=== PATIENT | female | born 1965 | race Caucasian/White ===

== ENCOUNTER 2018-11-03 14:42 | Inpatient (IN) | payer BC ==
--- NOTE | 2018-11-03 15:18 | ED ---
General Adult HPI - General Chief complaint: Chest Pain Stated complaint: Chest pain-sent by Time Seen by Provider: 11/03/18 14:58 Source: patient Mode of arrival: ambulatory Limitations: no limitations - History of Present Illness Initial comments: Dictation was produced using [employer] dictation software. please excuse any grammatical, word or spelling errors. Chief Complaint: Patient is a 53-year-old female sent in by primary care physician for ACS evaluation. History of Present Illness: Patient is 53-year-old female she was sent in by primary care physician for possible ACS. Patient has had multiple episodes of chest pain in the last week. States that the pain is located to the anterior chest with a crushing sensation. States that there is associated diaphoresis. Patient also complains that during the symptoms she does have some radiation to the shoulders and EKG was performed that [facility]'s office showing mild EKG changes. Patient was given aspirin prior to being sent here to the emergency department. Patient denies any symptoms at this time. The ROS documented in this emergency department record has been reviewed and confirmed by me. Those systems with pertinent positive or negative responses have been documented in the HPI. All other systems are other negative and/or noncontributory. PHYSICAL EXAM: General Impression: Alert and oriented x3, not in acute distress HEENT: Normocephalic atraumatic, extra-ocular movements intact, pupils equal and reactive to light bilaterally, mucous membranes moist. Cardiovascular: Heart regular rate and rhythm, S1&S2 audible, no murmurs, rubs or gallops Chest: Lungs clear to auscultation bilaterally, no rhonchi, no wheeze, no rales Abdomen: Bowel sounds present, abdomen soft, non-tender, non-distended, no organomegaly Musculoskeletal: Pulses present and equal in all extremities, no peripheral edema Motor: Power 5/5 bilaterally, no focal deficits noted Neurological: CN II-XII grossly intact, no focal motor or sensory deficits noted Skin: Intact with no visualized rashes Psych: Normal affect and mood ED course: 53 y Old female sent in by primary care physician for cardiac workup. Patient is asymptomatic at this time. History is concerning for ACS- type symptoms. As upon arrival shows heart rate of 124, rest of vital signs within normal limits. Pre Hospital EKG was evaluated showing ST depressions in the lateral precordial leads. EKG performed here shows no findings to suggest myocardial infarction at this time.Laboratory evaluation obtained. Leukocytosis of 13.1, rest of CBC unremarkable. Coag panel is unremarkable. Metabolic panel is unremarkable. Patient does have a troponin of 0.473. Given clinical presentation there is concern that patient is having non-ST elevation HI. Heparin given aspirin. Patient be admitted for acute coronary syndrome. Cardiology on consultation. She reevaluated and continues to report no chest pain symptoms. EKG interpretation: Ventricular rate 103, sinus tachycardia, ID interval 16, care 76, QTC 461. No ID prolongation, no QTC prolongation, no ST. There are nonspecific T-wave changes in the lateral precordial leads.. Overall, this EKG is unremarkable - Related Data Home Medications Medication Instructions Recorded Confirmed DULoxetine HCL [Cymbalta] 60 mg PO HS 11/03/18 11/03/18 Esomeprazole Magnesium [NexIUM 20 mg PO HS 11/03/18 11/03/18 24Hr] Lidocaine 5% Patch [Lidoderm] 1 patch TOPICAL DAILY PRN 11/03/18 11/03/18 Linaclotide [Linzess] 290 mcg PO HS 11/03/18 11/03/18 Lisinopril [Zestril] 10 mg PO HS 11/03/18 11/03/18 Methocarbamol [Robaxin-750] 750 mg PO DAILY PRN 11/03/18 11/03/18 Zolpidem Tartrate [Ambien] 10 mg PO HS 11/03/18 11/03/18 oxyCODONE HCL 20 mg PO Q4H 11/03/18 11/03/18 rOPINIRole HCL [Requip] 4 mg PO HS 11/03/18 11/03/18 Allergies Allergy/AdvReac Type Severity Reaction Status Date / Time cashew nut Allergy Swelling Verified 11/03/18 15:46 Review of Systems ROS Statement: Those systems with pertinent positive or pertinent negative responses have been documented in the HPI. ROS Other: All systems not noted in ROS Statement are negative. Past Medical History Past Medical History: Fibromyalgia, Hypertension Additional Past Medical History / Comment(s): reynauds, chronic abdominal pain and nausea, History of Any Multi-Drug Resistant Organisms: MRSA Date of last positivie culture/infection: 2010 MDRO Source:: abdominal incision Past Surgical History: Cholecystectomy, Hysterectomy, Tonsillectomy Additional Past Surgical History / Comment(s): back for scoliosis, right knee, right dermoid ovarian cyst, left hand carpal tunnel, sinus sx, anal fistula, colonoscopy, endoscopy, partial colectomy, hiatal hernia repair, back l4 l5, rectal prolapse repair, right carpal tunnel repair Past Psychological History: Anxiety, Depression Smoking Status: Current every day smoker Past Alcohol Use History: None Reported Past Drug Use History: Marijuana General Exam Limitations: no limitations Course Vital Signs 11/03/18 11/03/18 11/03/18 14:49 15:03 15:10 Temperature 97.9 F Pulse Rate 124 H 111 H Respiratory 18 Rate Blood Pressure 142/85 O2 Sat by Pulse 98 97 98 Oximetry 11/03/18 11/03/18 11/03/18 15:20 15:34 15:40 Temperature Pulse Rate 117 H 115 H 104 H Respiratory Rate Blood Pressure O2 Sat by Pulse 95 97 97 Oximetry 11/03/18 11/03/18 11/03/18 15:46 15:50 16:00 Temperature 98.8 F Pulse Rate 87 89 Respiratory Rate Blood Pressure 148/96 148/96 O2 Sat by Pulse 97 95 Oximetry 11/03/18 16:10 Temperature Pulse Rate 89 Respiratory Rate Blood Pressure 123/81 O2 Sat by Pulse 95 Oximetry Medical Decision Making - Lab Data Result diagrams: 11/03/18 15:15 11/03/18 15:15 Lab Results 11/03/18 11/03/18 11/03/18 Range/Units 15:15 15:15 15:15 WBC 13.1 H (3.8-10.6) k/uL RBC 5.30 (3.80-5.40) m/uL Hgb 15.7 (11.4-16.0) gm/dL Hct 49.1 H (34.0-46.0) % MCV 92.8 (80.0-100.0) fL MCH 29.7 (25.0-35.0) pg MCHC 32.0 (31.0-37.0) g/dL RDW 13.4 (11.5-15.5) % Plt Count 392 (150-450) k/uL Neutrophils % 75 % Lymphocytes % 18 % Monocytes % 4 % Eosinophils % 1 % Basophils % 0 % Neutrophils # 9.9 H (1.3-7.7) k/uL Lymphocytes # 2.4 (1.0-4.8) k/uL Monocytes # 0.5 (0-1.0) k/uL Eosinophils # 0.1 (0-0.7) k/uL Basophils # 0.1 (0-0.2) k/uL PT 10.9 (9.0-12.0) sec INR 1.0 (<1.2) APTT 25.8 (22.0-30.0) sec Sodium 142 (137-145) mmol/L Potassium 4.1 (3.5-5.1) mmol/L Chloride 105 (98-107) mmol/L Carbon Dioxide 29 (22-30) mmol/L Anion Gap 8 mmol/L BUN 10 (7-17) mg/dL Creatinine 0.72 (0.52-1.04) mg/dL Est GFR (CKD-EPI)AfAm >90 (>60 ml/min/1.73 sqM) Est GFR (CKD-EPI)NonAf >90 (>60 ml/min/1.73 sqM) Glucose 110 H (74-99) mg/dL Calcium 10.0 (8.4-10.2) mg/dL Magnesium 2.0 (1.6-2.3) mg/dL Total Bilirubin 0.5 (0.2-1.3) mg/dL AST 26 (14-36) U/L ALT 27 (9-52) U/L Alkaline Phosphatase 130 H (38-126) U/L Troponin I (0.000-0.034) ng/mL Total Protein 8.1 (6.3-8.2) g/dL Albumin 4.4 (3.5-5.0) g/dL 11/03/18 Range/Units 15:15 WBC (3.8-10.6) k/uL RBC (3.80-5.40) m/uL Hgb (11.4-16.0) gm/dL Hct (34.0-46.0) % MCV (80.0-100.0) fL MCH (25.0-35.0) pg MCHC (31.0-37.0) g/dL RDW (11.5-15.5) % Plt Count (150-450) k/uL Neutrophils % % Lymphocytes % % Monocytes % % Eosinophils % % Basophils % % Neutrophils # (1.3-7.7) k/uL Lymphocytes # (1.0-4.8) k/uL Monocytes # (0-1.0) k/uL Eosinophils # (0-0.7) k/uL Basophils # (0-0.2) k/uL PT (9.0-12.0) sec INR (<1.2) APTT (22.0-30.0) sec Sodium (137-145) mmol/L Potassium (3.5-5.1) mmol/L Chloride (98-107) mmol/L Carbon Dioxide (22-30) mmol/L Anion Gap mmol/L BUN (7-17) mg/dL Creatinine (0.52-1.04) mg/dL Est GFR (CKD-EPI)AfAm (>60 ml/min/1.73 sqM) Est GFR (CKD-EPI)NonAf (>60 ml/min/1.73 sqM) Glucose (74-99) mg/dL Calcium (8.4-10.2) mg/dL Magnesium (1.6-2.3) mg/dL Total Bilirubin (0.2-1.3) mg/dL AST (14-36) U/L ALT (9-52) U/L Alkaline Phosphatase (38-126) U/L Troponin I 0.473 H* (0.000-0.034) ng/mL Total Protein (6.3-8.2) g/dL Albumin (3.5-5.0) g/dL Disposition Clinical Impression: NSTEMI (non-ST elevated myocardial infarction) Disposition: ADMITTED IP TO THIS HOSP Condition: Fair Referrals: Fransico Urena MD [Primary Care Provider] - 1-2 days Decision Time: 16:35
[2018-11-03 15:32] LABS: Basophils # (A) 0.1 k/uL (0-0.2); Basophils % (A) 0 %; Eosinophils # (A) 0.1 k/uL (0-0.7); Eosinophils % (A) 1 %; HCT 49.1 % (34.0-46.0); HGB 15.7 gm/dL (11.4-16.0); Lymphocytes # (A) 2.4 k/uL (1.0-4.8); Lymphocytes % (A) 18 %; MCH 29.7 pg (25.0-35.0); MCV 92.8 fL (80.0-100.0); Mean Platelet Volume 7.5; Monocytes # (A) 0.5 k/uL (0-1.0); Monocytes % (A) 4 %; Neutrophils # (A) 9.9 k/uL (1.3-7.7); Neutrophils % (A) 75 %; Platelet Count 392 k/uL (150-450); RDW 13.4 % (11.5-15.5); WBC 13.1 k/uL (3.8-10.6)
[2018-11-03 15:40] LABS: ALT 27 U/L (9-52); AST 26 U/L (14-36); Albumin 4.4 g/dL (3.5-5.0); Alkaline Phosphatase 130 U/L (38-126); Anion Gap 8 mmol/L; Blood Urea Nitrogen 10 mg/dL (7-17); Carbon Dioxide 29 mmol/L (22-30); Chloride 105 mmol/L (98-107); Glucose 110 mg/dL (74-99); Potassium 4.1 mmol/L (3.5-5.1); Sodium 142 mmol/L (137-145); Total Bilirubin 0.5 mg/dL (0.2-1.3); Total Protein 8.1 g/dL (6.3-8.2)
[2018-11-03 15:43] LABS: Partial Thromboplastin Time 25.8 sec (22.0-30.0); Prothrombin Time 10.9 sec (9.0-12.0)
--- NOTE | 2018-11-03 16:07 | XR ---
EXAMINATION TYPE: XR chest 2V DATE OF EXAM: 11/03/2018 COMPARISON: Chest CT report September 24, 2011 HISTORY: Chest pain. TECHNIQUE: Frontal and lateral views of the chest are obtained. FINDINGS: There is no focal air space opacity, pleural effusion, or pneumothorax seen. The cardiac silhouette size is within normal limits. Underlying scoliosis is present. Cholecystectomy clips are n oted. IMPRESSION: No acute cardiopulmonary process.
[2018-11-03] MEDS ORDERED: HEPARIN SODIUM,PORCINE 5,000 UNIT/ML 1 ML VIAL IV ONE (16:29)
[2018-11-03] MEDS ORDERED: HEPARIN SODIUM,PORCINE 5,000 UNIT/ML 1 ML VIAL IV PRN (16:29)
[2018-11-03] MEDS ORDERED: NITROGLYCERIN SL TABS 0.4 MG TAB SUBLINGUAL PRN (16:30)
[2018-11-03] MEDS ORDERED: ASPIRIN 81 MG PO STA (16:30)
[2018-11-03] MEDS: HEPARIN SOD,PORK IN 0.45% NACL 25,000 UNIT in 0.45% NACL 1 250ML.BAG IV SCH (17:07)
[2018-11-03] MEDS ORDERED: METHOCARBAMOL 750 MG TAB PO PRN (20:45)
[2018-11-03] MEDS ORDERED: LIDOCAINE 5% PATCH TOPICAL PRN (20:45)
[2018-11-03] MEDS ORDERED: ZOLPIDEM 10 MG TAB PO PRN (21:00)
[2018-11-03] MEDS ORDERED: ATORVASTATIN 40 MG TAB PO SCH (22:30)
[2018-11-03] MEDS: DULoxetine HCL 60 MG CAPSULE.DR PO SCH (22:51)
[2018-11-03] MEDS: Linaclotide [Linzess] PO SCH (22:51)
[2018-11-03] MEDS: LISINOPRIL 10 MG TAB PO SCH (22:52)
[2018-11-03] MEDS: METOPROLOL TARTRATE 12.5 MG TAB PO SCH (22:52)
[2018-11-03] MEDS: PANTOPRAZOLE 40 MG TABLET PO SCH (22:52)
[2018-11-03] MEDS: rOPINIRole HCL 4 MG TABLET PO SCH (22:52)
--- NOTE | 2018-11-04 00:58 | HP ---
HISTORY AND PHYSICAL DATE OF ADMISSION: November 03, 2018. DATE OF SERVICE: November 03, 2018. PRESENTING COMPLAINT: Chest pain. HISTORY OF PRESENTING COMPLAINT: This is a 53-year-old patient of Dr. Fransico Urena whose chronic stable medical conditions include fibromyalgia, hypertension, Raynaud's, anxiety, depression. The patient is a long-standing smoker. The patient also has got GERD and irritable bowel syndrome. On Friday that is 4 days ago, the patient had an episode of central squeezing sensation, lasted for a good 1.5 hours and then subsided on its own. This was associated with shortness of breath, perspiration, nausea. Last night, patient had similar episode and decided to come into the ER today. The patient is put on IV heparin. The patient's initial troponin was 0.4. The patient currently does not have any chest pain, admitted with a diagnosis of acute non-Q-wave myocardial infarction. REVIEW OF SYSTEMS: CONSTITUTIONAL: Tired. HEENT: None. RESPIRATORY as above. CARDIOVASCULAR as above. GASTROINTESTINAL: Heartburn. GENITOURINARY none. MUSCULOSKELETAL: Chronic fibromyalgia. DERMATOLOGICAL, HEMATOLOGIC, LYMPHATIC: None. PSYCHIATRY: Anxiety. NEUROLOGICAL: None. PAST MEDICAL HISTORY: Of fibromyalgia, hypertension, Raynaud, irritable bowel syndrome, anxiety, depression, GERD. PAST SURGICAL HISTORY: Cholecystectomy hysterectomy, tonsillectomy, back surgery for scoliosis, right dermoid ovarian cyst, left hand carpal tunnel, anal fistula, colonoscopy, partial colectomy, hiatal hernia repair, L4-L5 surgery, rectal prolapse repair, right carpal tunnel repair. PSYCH HISTORY: Anxiety and depression. SOCIAL HISTORY: Smoking a pack a day for close to 38 years, grows her own marijuana. Does 1 g a day, takes it for nausea and abdominal pain from scar tissue. FAMILY HISTORY: Coronary artery disease, diabetes, thyroid, colon cancer. HOME MEDICATIONS: 1. Oxycodone 20 mg q.4. 2. Robaxin 750 mg daily p.r.n. 3. Lidoderm 5% patch topical daily p.r.n. 4. Requip 4 mg at bedtime. 5. Zestril 10 mg q.h.s. 6. Linzess 290 mcg p.o. q.h.s. 7. Nexium 20 mg q.h.s. 8. Cymbalta 60 mg q.h.s. 9. Ambien 10 mg q.h.s. ALLERGIES: CASHEW NUTS. EXAM: VITAL SIGNS: On examination: Temperature 98.1, pulse 72, respiratory 18, blood pressure 102/76, pulse ox 98% on room air. GENERAL APPEARANCE: Well built. BMI 34. Sitting up, comfortable, awake. EYES: Pupils are equal. Conjunctivae normal. HEENT: External appearance of nose and ears normal. Oral cavity normal. NECK: JVD Not raised. Mass not palpable. RESPIRATORY: Effort normal. LUNGS: Fair air entry. CARDIOVASCULAR: 1st and 2nd sounds normal. No edema. ABDOMEN: Soft, nontender. Liver and spleen not palpable. LYMPHATICS: No lymph nodes palpable in the neck and axilla. PSYCHIATRY: Alert and oriented x3. Mood and affect normal. NEUROLOGICAL: Pupils equal. Cranial nerves grossly intact. Power and sensation grossly intact. INVESTIGATIONS: White count 13.1, hemoglobin 15.7, potassium 4.1. BUN and creatinine normal. Troponin 0.4, 0.3. EKG tracing personally reviewed by me shows ST-segment depression in inferior leads and in the lateral leads. Chest x-ray film personally reviewed by me shows not any infiltrates. ASSESSMENT: 1. Acute non-Q-wave myocardial infarction, probably occurring in the last 2 or 3 days. Currently chest pain free. 2. Chronic fibromyalgia. 3. Essential hypertension. 4. Anxiety and depression, not otherwise specified. 5. Irritable bowel syndrome. 6. Gastroesophageal reflux disease. 7. Chronic nicotine dependence. Patient is a cigarette smoker. 8. Cannabis use. The patient grows her own, uses for nausea and scar tissue. 9. IV heparin monitoring. PLAN: Patient is on IV heparin, aspirin, Lipitor will be added. A small dose of beta danielle will be added. The patient is already on Zestril. Cardiology is consulted with a view to cardiac catheterization with input. The patient is offered a nicotine patch. She declines the same. Copy to Dr. Fransico Urena. MMPOOJAL / DONAN: [phone] /
--- NOTE | 2018-11-04 07:05 | P.CRDCN ---
History of Present Illness Consult date: 11/04/18 Requesting physician: Dre Kennedy Consult reason: chest pain Chief complaint: Chest pain History of present illness: This is a pleasant 53-year-old female with documented history of hy pertension, nicotine dependence, family history of coronary artery disease, her father had a myocardial infarction in his 40s. According to the patient, on Friday night she had a bout of midsternal chest discomfort which she described as a pressure and crushing sensation that radiated down into her arm. She became extremely diaphoretic and nauseated. Symptoms lasted around an hour. He states overall on the weekend she felt better, then again on Friday night the patient had similar symptoms. She went to a routine office appointment yesterday and mentioned these symptoms to her doctor. An EKG was performed in the office and patient was subsequently advised to come to the emergency room f or further evaluation and treatment. Original EKG which was performed in the office shows a normal sinus rhythm with T wave inversion noted in the lateral leads. Initial EKG performed on arrival here showed a normal sinus rhythm with no acute changes. EKG performed this morning shows normal sinus rhythm with ST- T wave changes noted in the inferior lateral leads. Chest x-ray does not reveal any acute process. Blood pressure on arrival here 142/80, heart rate in the 120s. Blood pressure this morning 118/70 with a heart rate in the 60s, 96% on room air. White blood cell count 13.1, hemoglobin 15.7, platelet count 392. Sodium 142, potassium 4.1, BUN 10 and creatinine 0.7, magnesium 2.0. Troponins 0.47, 0.33, 0.28. At the time of my examination this morning, patient is currently chest pain-free. Past Medical History Past Medical History: Fibromyalgia, Hypertension Additional Past Medical History / Comment(s): reynauds, chronic abdominal pain and nausea, History of Any Multi-Drug Resistant Organisms: MRSA Date of last positivie culture/infection: 2010 MDRO Source:: abdominal incision Past Surgical History: Cholecystectomy, Hysterectomy, Tonsillectomy Additional Past Surgical History / Comment(s): back for scoliosis, scope of right knee, right dermoid ovarian cyst, left hand carpal tunnel, sinus sx, anal fistula, colonoscopy, endoscopy, partial colectomy, hiatal hernia repair, back l 4 l5, rectal prolapse repair, right carpal tunnel repair Past Psychological History: Anxiety, Depression Smoking Status: Current every day smoker Past Alcohol Use History: None Reported Past Drug Use History: Marijuana - Past Family History Father Family Medical History: Coronary Artery Disease (CAD), Diabetes Mellitus, Thyroid Disorder Additional Family Medical History / Comment(s): Cancer of [place], thyroid, triple bipass at 49 yr old Medications and Allergies Home Medications Medication Instructions Recorded Confirmed Type DULoxetine HCL [Cymbalta] 60 mg PO HS 11/03/18 11/03/18 History Esomeprazole Magnesium [NexIUM 20 mg PO HS 11/03/18 11/03/18 History 24Hr] Lidocaine 5% Patch [Lidoderm] 1 patch TOPICAL DAILY PRN 11/03/18 11/03/18 History Linaclotide [Linzess] 290 mcg PO HS 11/03/18 11/03/18 History Lisinopril [Zestril] 10 mg PO HS 11/03/18 11/03/18 History Methocarbamol [Robaxin-750] 750 mg PO DAILY PRN 11/03/18 11/03/18 History Zolpidem Tartrate [Ambien] 10 mg PO HS 11/03/18 11/03/18 History oxyCODONE HCL 20 mg PO Q4H 11/03/18 11/03/18 History rOPINIRole HCL [Requip] 4 mg PO HS 11/03/18 11/03/18 History Allergies Allergy/AdvReac Type Severity Reaction Status Date / Time cashew nut Allergy Swelling Verified 11/03/18 15:46 Physical Exam Vitals: Vital Signs Temp Pulse Pulse Resp BP BP Pulse Ox 11/04/18 04:40 98.0 F 66 18 117/71 96 11/04/18 00:35 98.1 F 68 20 116/71 96 11/03/18 20:00 97.9 F 73 20 109/72 94 L 11/03/18 17:39 98.1 F 72 18 122/76 98 11/03/18 17:18 98.8 F 11/03/18 17:10 73 112/80 94 L 11/03/18 17:00 77 131/73 95 11/03/18 16:50 82 131/73 97 11/03/18 16:40 80 128/91 96 11/03/18 16:30 82 122/74 96 11/03/18 16:20 82 122/74 96 11/03/18 16:10 89 123/81 95 11/03/18 16:00 89 148/96 95 11/03/18 15:50 87 148/96 97 11/03/18 15:46 98.8 F 11/03/18 15:40 104 H 97 11/03/18 15:34 115 H 97 11/03/18 15:20 117 H 95 11/03/18 15:10 111 H 98 11/03/18 15:03 97 11/03/18 14:49 97.9 F 124 H 18 142/85 98 Intake and Output 11/03/18 11/03/18 11/04/18 14:59 22:59 06:59 Intake Total 1 627.167 Balance 1 627.167 Intake: Amount of Fluid Infused ( 1 ml) Intake, IV Titration 77.167 Amount Heparin Sod,Pork in 0.45% 77.167 NaCl 25,000 unit In 0.45 % NaCl 1 250ml.bag @ 9.59 UNITS/KG/HR 10 mls/hr IV .Q24H [facility] Rx#:[id number] Oral 550 Other: Weight 104.326 kg 102.1 kg PHYSICAL EXAMINATION: GENERAL: 53-year-old female in no acute distress at the time of my examination HEENT: Head is atraumatic, normocephalic. Pupils equal, round. Sclera anicteric. Conjunctiva are clear. Mucous membranes of the mouth are moist. Neck is supple. There is no elevated jugular venous pressure. No carotid bruit is heard. HEART EXAMINATION: Heart S1, S2 normal. No murmur or gallop heard. CHEST EXAMINATION: Lungs reveal fine wheezing throughout ABDOMEN: Soft, nontender. Bowel sounds are heard. No organomegaly noted. EXTREMITIES: 2+ peripheral pulses with no evidence of peripheral edema and no calf tenderness noted. NEUROLOGIC patient is awake, alert and oriented 3 . . Results 11/03/18 15:15 11/03/18 15:15 Cardiac Enzymes 11/03/18 11/03/18 11/03/18 Range/Units 15:15 15:15 20:52 AST 26 (14-36) U/L Troponin I 0.473 H* 0.336 H* (0.000-0.034) ng/mL 11/04/18 Range/Units 03:15 AST (14-36) U/L Troponin I 0.289 H* (0.000-0.034) ng/mL Coagulation 11/03/18 11/03/18 Range/Units 15:15 23:20 PT 10.9 (9.0-12.0) sec APTT 25.8 34.3 H (22.0-30.0) sec CBC 11/03/18 Range/Units 15:15 WBC 13.1 H (3.8-10.6) k/uL RBC 5.30 (3.80-5.40) m/uL Hgb 15.7 (11.4-16.0) gm/dL Hct 49.1 H (34.0-46.0) % Plt Count 392 (150-450) k/uL Comprehensive Metabolic Panel 11/03/18 Range/Units 15:15 Sodium 142 (137-145) mmol/L Potassium 4.1 (3.5-5.1) mmol/L Chloride 105 (98-107) mmol/L Carbon Dioxide 29 (22-30) mmol/L BUN 10 (7-17) mg/dL Creatinine 0.72 (0.52-1.04) mg/dL Glucose 110 H (74-99) mg/dL Calcium 10.0 (8.4-10.2) mg/dL AST 26 (14-36) U/L ALT 27 (9-52) U/L Alkaline Phosphatase 130 H (38-126) U/L Total Protein 8.1 (6.3-8.2) g/dL Albumin 4.4 (3.5-5.0) g/dL Current Medications Generic Name Dose Route Start Last Admin Trade Name Freq PRN Reason Stop Dose Admin Aspirin 325 mg 11/04/18 09:00 Aspirin PO DAILY [facility] Atorvastatin Calcium 40 mg 11/03/18 22:30 11/03/18 22:53 Lipitor PO 40 mg DAILY [facility] Administration Duloxetine HCl 60 mg 11/03/18 21:00 11/03/18 22:51 Cymbalta PO Not Given HS [facility] Heparin Sodium (Porcine) 0 unit 11/03/18 16:29 11/04/18 00:47 Heparin IV 4,000 unit PER PROTOCOL PRN Administration Low PTT Protocol Heparin Sodium/Sodium Chloride 250 mls @ 10 mls/hr 11/03/18 16:30 11/04/18 00:50 25,000 unit/ Sodium Chloride IV 12.46 units/kg/hr .Q24H [facility] 13 mls/hr Titration Protocol 9.59 UNITS/KG/HR Lidocaine 1 patch 11/03/18 20:45 Lidoderm TOPICAL DAILY PRN Pain Lisinopril 10 mg 11/03/18 21:00 11/03/18 22:52 Zestril PO Not Given HS [facility] Methocarbamol 750 mg 11/03/18 20:45 Robaxin PO DAILY PRN Pain Metoprolol Tartrate 12.5 mg 11/03/18 22:29 11/03/18 22:52 Lopressor PO 12.5 mg BID [facility] Administration Nitroglycerin 0.4 mg 11/03/18 16:30 Nitrostat SUBLINGUAL Q5M PRN Chest Pain Linaclotide [Linzess 290 mcg 11/03/18 21:00 11/03/18 22:51 ] PO Not Given HS [facility] Oxycodone HCl 20 mg 11/03/18 20:45 Oxyir PO Q4H PRN BREAKTHROUGH PAIN Pantoprazole Sodium 40 mg 11/03/18 21:00 11/03/18 22:52 Protonix PO 40 mg HS [facility] Administration Ropinirole HCl 4 mg 11/03/18 21:00 11/03/18 22:52 Requip PO Not Given HS [facility] Zolpidem Tartrate 10 mg 11/03/18 21:00 Ambien PO HS PRN Insomnia Intake and Output 11/03/18 11/03/18 11/04/18 14:59 22:59 06:59 Intake Total 1 627.167 Balance 1 627.167 Intake: Amount of Fluid Infused ( 1 ml) Intake, IV Titration 77.167 Amount Heparin Sod,Pork in 0.45% 77.167 NaCl 25,000 unit In 0.45 % NaCl 1 250ml.bag @ 9.59 UNITS/KG/HR 10 mls/hr IV .Q24H [facility] Rx#:[id number] Oral 550 Other: Weight 104.326 kg 102.1 kg Patient Weight 11/04/18 06:59 Weight 102.1 kg 11/03/18 15:15 11/03/18 15:15 EKG Interpretations (text) EKG shows normal sinus rhythm with ST-T wave changes noted in the inferior lateral leads. Assessment and Plan Plan: Assessment and plan #1 midsternal chest pressure and heaviness with associated diaphoresis and nausea, radiation down the left arm, EKG shows normal sinus rhythm with inferior lateral ST-T wave changes. Abnormality in troponin. Clinical picture suggestive of non-Q-wave [place]. #2 hypertension #3 nicotine dependence #4 strong family history of premature coronary artery disease in her father who had a myocardial infarction in his 40s #5 Renauds syndrome Plan We will obtain a stat echocardiogram with Doppler study. Continue IV heparin drip and aspirin, continue lisinopril, metoprolol, we will start the patient on 80 mg of Lipitor now and daily. Patient has been advised that she will need to undergo cardiac catheterization, the risks and benefits were explained to the patient in detail and she is willing to proceed. Further recommendations will be based on these findings and the patient's clinical course. DNP note has been reviewed, I agree with a documented findings and plan of care. Patient was seen and examined.
[2018-11-04 07:20] LABS: Cholesterol 226 mg/dL (<200); HDL Cholesterol 44 mg/dL (40-60); LDL Cholesterol,Calculated 149 mg/dL (0-99); Triglycerides 165 mg/dL (<150)
[2018-11-04] MEDS ORDERED: NITROGLYCERIN SL TABS 0.4 MG TAB SUBLINGUAL PRN ×2 (08:27→09:54)
[2018-11-04] MEDS ORDERED: ALPRAZolam 0.25 MG TAB PO PRN (08:27)
[2018-11-04] MEDS ORDERED: SODIUM CHLORIDE 0.9% 1,000 ML in EMPTY BAG 1 BAG IV ONE (08:27)
[2018-11-04] MEDS ORDERED: ALPRAZolam 0.5 MG TAB PO PRN (08:27)
[2018-11-04] MEDS ORDERED: ASPIRIN 325 MG TAB PO STA (08:30)
[2018-11-04] MEDS ORDERED: ATORVASTATIN 80 MG TAB PO STA (08:30)
[2018-11-04] MEDS: METOPROLOL TARTRATE 12.5 MG TAB PO SCH ×2 (08:40→20:15)
[2018-11-04] MEDS ORDERED: VERAPAMIL 2.5 MG/ML 2 ML AMP ONE (08:55)
[2018-11-04] MEDS ORDERED: fentaNYL (PF) 50 MCG/ML 2 ML AMP ONE (08:55)
[2018-11-04] MEDS ORDERED: LIDOCAINE 1% INJ 10MG/ML (20 ML MDV) ONE (08:55)
[2018-11-04] MEDS ORDERED: HEPARIN SODIUM 1,000 UN/ML (10ML VL) ONE (08:55)
[2018-11-04] MEDS ORDERED: ASPIRIN 325 MG TAB PO SCH (09:00)
[2018-11-04] MEDS ORDERED: ATORVASTATIN 80 MG TAB PO SCH (09:00)
[2018-11-04] MEDS ORDERED: IV FLUID CONTINUATION 1,000 ML IV ONE (09:05)
[2018-11-04] MEDS ORDERED: fentaNYL (PF) 50 MCG/ML 2 ML AMP IV ONE (09:10)
[2018-11-04] MEDS: MIDAZOLAM 2 MG/2 ML VIAL IV ONE ×2 (09:10→09:38)
[2018-11-04] MEDS ORDERED: LIDOCAINE 1% INJ 10MG/ML (20 ML MDV) SQ ONE (09:13)
[2018-11-04] MEDS ORDERED: VERAPAMIL SYRINGE (5 MG/10 ML) INTRAARTER ONE (09:16)
[2018-11-04] MEDS ORDERED: HEPARIN SODIUM 1,000 UN/ML (10ML VL) IV ONE (09:17)
[2018-11-04] MEDS ORDERED: BIVALIRUDIN BOLUS 250 MG/50 ML IV ONE (09:37)
[2018-11-04] MEDS ORDERED: BIVALIRUDIN 250 MG in SODIUM CHLORIDE 0.9% 50 ML IV ONE (09:38)
--- NOTE | 2018-11-04 09:45 | P.CARDCATH ---
Date of Procedure: 11/04/18 Preoperative Diagnosis: Non-STEMI Postoperative Diagnosis: Critical lesion involving the proximal circumflex Procedure(s) Performed: Left heart catheterization without left ventriculography Description of Procedure: HISTORY: This is a 53-year-old female with history of hypertension, family history of ischemic heart disease who was admitted to the hospital with symptoms of prolonged chest pain and positive troponin suggestive of non-STEMI. Patient is advised to have a cardiac catheterization for definitive diagnosis. CONSENT:I have discussed the risks, benefits and alternative therapies for the above-mentioned procedure and for both sedation/analgesia as well as necessary blood product administration, if indicated, as they pertain to this patient. The patient has indicated understanding and acceptance of the risks and procedures discussed. [] PROCEDURE: Patient was brought to the lab in a fasting state. Patient was given some IV sedation. The right wrist is infiltrated with lidocaine and right radial artery was entered using Seldinger technique. A 6-Japanese catheter was left in place and selective coronary arteriography was performed. Patient tolerated the procedure well. Patient went on to have stent placement of the circumflex by Dr. Self No immediate complications were noted and patient was transferred to [facility] in a stable condition Conscious Sedation: Versed 1mg Fentanyl 50 g Duration 20minutes HEMODYNAMICS: The aortic pressure is 140/80. Left ankle end-diastolic pressure is about 12. There was no gradient across the aortic valve SELECTIVE CORONARY ARTERIOGRAPHY: LEFT MAIN: Short and free of occlusive disease THE LEFT ANTERIOR DESCENDING CORONARY ARTERY:. Good caliber vessel with mild disease in the proximal portion. The mid and distal vessels are free of occlusive disease THE LEFT CIRCUMFLEX AND IS CORONARY ARTERY:. This is a good caliber vessel with about 70-80% eccentric lesion involving the proximal portion THE RIGHT CORONARY ARTERY:. Moderate caliber vessel free of any occlusive disease LEFT VENTRICULOGRAPHY:. Not performed FINAL IMPRESSION:. Critical lesion involving the circumflex. Stent placement being done by Dr. Self PLAN: Stent placement of the circumflex PROGNOSIS: Fair
[2018-11-04] MEDS ORDERED: CLOPIDOGREL 75 MG TAB ONE (09:49)
[2018-11-04] MEDS ORDERED: IOPAMIDOL-370 150ML BTL INJ ONE (09:51)
[2018-11-04] MEDS ORDERED: CLOPIDOGREL 75 MG TAB PO ONE (09:52)
[2018-11-04] MEDS ORDERED: MAG HYDROX/AL HYDROX/SIMETH 30 ML CUP PO PRN (09:54)
[2018-11-04] MEDS ORDERED: ATROPINE SULFATE 0.1 MG/ML 10ML SYRINGE IV PRN (09:54)
[2018-11-04] MEDS ORDERED: RX INFO: IV CONTRAST WAS GIVEN 1 EACH MISC MISCELLANE PRN (09:54)
[2018-11-04] MEDS ORDERED: ZOLPIDEM 5 MG TAB PO PRN (09:54)
[2018-11-04] MEDS ORDERED: SODIUM CHLORIDE 0.9% 1,000 ML IV SCH (10:00)
--- NOTE | 2018-11-04 11:04 | PTCA ---
PERCUTANEOUSTRANS CORORONARY ANGIOGRAPHY DATE OF SERVICE: November 04, 2018 PERFORMING PHYSICIAN: John Granger MD, community arts worker. PROCEDURE PERFORMED: Successful stenting of the proximal left circumflex using 4.0 x 18 mm Xience PERLITA with an excellent angiographic result and reduction of stenosis from 80% to 0%. INDICATION: This is a pleasant 53-year-old female patient who was admitted to the hospital with chest discomfort and was found to have mildly abnormal cardiac enzymes. She underwent heart catheterization by Dr. Rodriguez and was found to have severe disease involving the proximal left circumflex with quite unstable lesion. Because of that, stenting of the left circumflex was advised. APPROACH: Right radial artery. COMPLICATION: None. LEVEL OF SEDATION: Moderate with sedation length of 14 minutes. PROCEDURE DESCRIPTION: Please refer to the diagnostic heart catheterization was performed by Dr. Rodriguez. Anticoagulation was initiated using Angiomax. Subsequently I took JL3.5 guide and the left main was engaged. A run-through wire was used to wire the left circumflex. Subsequently I did direct stenting of the lesion using using 4.0 x 18 mm Xience drug- eluting stent where the stent was positioned under fluoroscopy guidance and deployed under 12 atmospheres for 20 seconds with the following angiogram showing excellent angiographic results and the procedure was completed without any complication. POSTPROCEDURE MANAGEMENT: 1. Dual antiplatelet therapy. 2. Risk factor modifications. 3. Follow up with the patient. MMPOOJAL / DONAN: [id number] /
[2018-11-04 15:10] VITALS: BMI 33.2
--- NOTE | 2018-11-04 17:51 | ECHOF ---
Referral Reason:assess lvf MEASUREMENTS -------- HEIGHT: 175.3 cm WEIGHT: 102.1 kg BP: RVIDd: 1.9 cm (< 3.3) IVSd: 1.3 cm (0.6 - 1.1) LVIDd: 4.5 cm (3.9 - 5.3) LVPWd: 1.4 cm (0.6 - 1.1) IVSs: 2.1 cm LVIDs: 2.4 cm LVPWs: 1.9 cm LAESV Index (A-L): 15.93 ml/m Ao Diam: 3.2 cm (2.0 - 3.7) AV Cusp: 2.2 cm (1.5 - 2.6) LA Diam: 3.0 cm (2.7 - 3.8) MV EXCURSION: 15.965 mm (> 18.000) MV EF SLOPE: 89 mm/s (70 - 150) EPSS: 0.8 cm MV E Siva: 0.84 m/s MV DecT: 283 ms MV A Siva: 0.87 m/s MV E/A Ratio: 0.97 RAP: 5.00 mmHg RVSP: 7.51 mmHg FINDINGS -------- Sinus rhythm. This was a technically good study. The left ventricular size is normal. There is mild concentric left ventricular hypertrophy. Overa ll left ventricular systolic function is normal with, an EF between 55 - 60 %. The right ventricle is normal in size and function. Normal LA size by volume 22+/-6 ml/m2. The right atrium is normal in size. The aortic valve is trileaflet and appears structurally normal. There is trace mitral regurgitation. Trace tricuspid regurgitation present. The right ventricular systolic pressure, as measured by Dopp ler, is 7.51mmHg. There is no pulmonic regurgitation present. The aortic root size is normal. Normal inferior vena cava with normal inspiratory collapse consistent with estimated right atrial pre ssure of 5 mmHg. There is no pericardial effusion. CONCLUSIONS -------- 1. Sinus rhythm. 2. This was a technically good study. 3. The left ventricular size is normal. 4. There is mild concentric left ventricular hypertrophy. 5. Overall left ventricular systolic function is normal with, an EF between 55 - 60 %. 6. The right ventricle is normal in size and function. 7. Normal LA size by volume 22+/-6 ml/m2. 8. The right atrium is normal in size. 9. The aortic valve is trileaflet and appears structurally normal. 10. There is trace mitral regurgitation. 11. Trace tricuspid regurgitation present. 12. The right ventricular systolic pressure, as measured by Doppler, is 7.51mmHg. 13. There is no pulmonic regurgitation present. 14. The aortic root size is normal. 15. Normal inferior vena cava with normal inspiratory collapse consistent with estimated right atrial pressure of 5 mmHg. 16. There is no pericardial effusion. TRANSITION MGR RN: Chani Bell RDCS
[2018-11-04] MEDS: HEPARIN SOD,PORK IN 0.45% NACL 25,000 UNIT in 0.45% NACL 1 250ML.BAG IV SCH (18:21)
[2018-11-04] MEDS: LISINOPRIL 10 MG TAB PO SCH (20:15)
[2018-11-04] MEDS: DULoxetine HCL 60 MG CAPSULE.DR PO SCH (20:15)
[2018-11-04] MEDS: PANTOPRAZOLE 40 MG TABLET PO SCH (20:15)
[2018-11-04 22:00] VITALS: RESP 20
--- NOTE | 2018-11-04 23:38 | PN ---
PROGRESS NOTE DATE OF SERVICE: 11/04/2018 PRESENTING COMPLAINT: Chest pain. INTERVAL HISTORY: Patient presented with acute non-Q-wave myocardial infarction, underwent cardiac catheterization today and had a stent placed to the circumflex. Doing better, up and about in the hallway. No chest pain or shortness of breath. REVIEW OF SYSTEMS: Done for constitutional, cardiovascular, GI, pulmonary; relevant findings as above. CURRENT MEDICATIONS: Reviewed. They include: 1. Aspirin. 2. Lipitor. 3. Plavix. 4. Cymbalta. 5. IV heparin. 6. Lopressor. PHYSICAL EXAMINATION: Temperature 97.3, pulse 85, respiration 18, blood pressure 154/72, pulse ox 100% on room air. GENERAL APPEARANCE: Sitting up, awake. EYES: Pupils equal. Conjunctivae normal. NECK: JVD not raised. Mass not palpable. RESPIRATORY: Effort normal. LUNGS: Fair air entry. CARDIOVASCULAR: First and second sounds normal. No edema. ABDOMEN: Soft, non-tender. Liver and spleen not palpable. PSYCHIATRY: Alert and oriented x3. Mood and affect normal. INVESTIGATIONS: Troponin 0.4, 0.3, 0.2. LDL is 149. ASSESSMENT: 1. Acute non-Q-wave myocardial infarction, POA. 2. Angioplasty and stenting to the circumflex. 3. Chronic fibromyalgia. 4. Essential hypertension. 5. Anxiety and depression not otherwise specified. 6. Irritable bowel syndrome. 7. Gastroesophageal reflux disease. 8. Chronic nicotine dependence. Patient is a cigarette smoker. 9. Cannabis use, which she uses for nausea and abdominal pain. PLAN: Patient is now up and about in the hallway, doing better. Smoking cessation was reinforced. SMOKING CESSATION COUNSELING: This was done at length with the patient and at the bedside. Patient does not want a nicotine patch. More than 3 minutes was spent on this aspect of the case. MMODL / IJN: [id number] /
[2018-11-05] MEDS: Linaclotide [Linzess] PO SCH (00:15)
[2018-11-05] MEDS: rOPINIRole HCL 4 MG TABLET PO SCH (00:15)
[2018-11-05 07:46] VITALS: BP 132/77; PULSE 63; TEMP 97.4
[2018-11-05] MEDS ORDERED: ASPIRIN 325 MG TAB PO SCH (09:00)
[2018-11-05] MEDS ORDERED: CLOPIDOGREL 75 MG TAB PO SCH (09:00)
[2018-11-05] MEDS ORDERED: ATORVASTATIN 80 MG TAB PO SCH (09:00)
[2018-11-05] MEDS: METOPROLOL TARTRATE 12.5 MG TAB PO SCH (10:57)
--- NOTE | 2018-11-05 12:59 | P.PN ---
Subjective Progress Note Date: 11/05/18 This is a pleasant 53-year-old female with documented history of hypertension, nicotine dependence, family history of coronary artery disease, her father had a myocardial infarction in his 40s. According to the patient, on Friday night she had a bout of midsternal chest discomfort which she described as a pressure and crushing sensation that radiated down into her arm. She became extremely diaphoretic and nauseated. Symptoms lasted around an hour. He states overall on the weekend she felt better, then again on Friday night the patient had similar symptoms. She went to a routine office appointment yesterday and mentioned these symptoms to her doctor. An EKG was performed in the office and patient was subsequently advised to come to the emergency room for further evaluation and treatment. Original EKG which was performed in the office shows a normal sinus rhythm with T wave inversion noted in the lateral leads. Initial EKG performed on arrival here showed a normal sinus rhythm with no acute changes. EKG performed this morning shows normal sinus rhythm with ST- T wave changes noted in the inferior lateral leads. Chest x-ray does not reveal any acute process. Blood pressure on arrival here 142/80, heart rate in the 120s. Blood pressure this morning 118/70 with a heart rate in the 60s, 96% on room air. White blood cell count 13.1, hemoglobin 15.7, platelet count 392. Sodium 142, potassium 4.1, BUN 10 and creatinine 0.7, magnesium 2.0. Troponins 0.47, 0.33, 0.28. At the time of my examination this morning, patient is currently chest pain-free. 11/05/2018 Patient was taken to the cardiac catheterization lab yesterday where she underwent angioplasty and stenting of the proximal circumflex. EKG from this morning showed normal sinus rhythm with no changes from post-PCI. Hemodynamically she is stable today denies any chest pain or difficulty in breathing. Echocardiogram with Doppler study revealed a normal left ventricular systolic function. Objective - Vital Signs Vital signs: Vital Signs Temp 97.4 F L 11/05/18 07:43 Pulse 63 11/05/18 07:43 Resp 20 11/05/18 07:43 BP 132/77 11/05/18 07:43 Pulse Ox 97 11/05/18 07:43 Intake & Output 11/04/18 11/05/18 11/05/18 18:59 06:59 18:59 Intake Total 319.5 540 240 Output Total 1999 Balance -1680.5 540 240 Weight 102.1 kg 102.8 kg Intake: IV 97.5 Oral 222 540 240 Output: Urine 1999 Other: # Voids 2 1 - Exam PHYSICAL EXAMINATION: GENERAL: 53-year-old female in no acute distress at the time of my examination HEENT: Head is atraumatic, normocephalic. Pupils equal, round. Sclera anicteric. Conjunctiva are clear. Mucous membranes of the mouth are moist. Neck is supple. There is no elevated jugular venous pressure. No carotid bruit is heard. HEART EXAMINATION: Heart S1, S2 normal. No murmur or gallop heard. CHEST EXAMINATION: Lungs reveal fine wheezing throughout ABDOMEN: Soft, nontender. Bowel sounds are heard. No organomegaly noted. EXTREMITIES: 2+ peripheral pulses with no evidence of peripheral edema and no calf tenderness noted. Right radial site clean and dry, good distal pulse. NEUROLOGIC patient is awake, alert and oriented 3 . . - Labs CBC & Chem 7: 11/03/18 15:15 11/05/18 05:57 Assessment and Plan Plan: Assessment and plan #1 midsternal chest pressure and heaviness with associated diaphoresis and nausea, radiation down the left arm, EKG shows normal sinus rhythm with inferior lateral ST-T wave changes. Abnormality in troponin. Clinical picture suggestive of non-Q-wave PR. #2 hypertension #3 nicotine dependence #4 strong family history of premature coronary artery disease in her father who had a myocardial infarction in his 40s #5 Renauds syndrome Plan Echocardiogram with Doppler study revealed a normal left ventricular systolic function, patient is status post angioplasty and stenting of the circumflex artery. From our perspective she may be able to be discharged home today, follow-up appointment with Dr. Rodriguez in the office post discharge. Patient will be discharged home on aspirin 81 mg daily, Lipitor 80 mg daily, Plavix 75 mg daily, lisinopril 10 mg daily, and metoprolol 12-1/2 mg by mouth twice a day along with sublingual nitroglycerin. SPANISH INTERPRETER note has been reviewed, I agree with a documented findings and plan of care. Patient was seen and examined.
== END 2018-11-05 14:46 | disposition home or self-care (01) | DRG 247 ==
LOC: EC 14:42 → 3SCARD 16:30
PROVIDERS: ADMIT Hospitalist; ATTEND Hospitalist
PROC: B2111ZZ Fluoroscopy of Multiple Coronary Arteries using Low Osmolar Contrast (ICD-10-PCS; 2018-11-04)
PROC: 027034Z Dilation of Coronary Artery, One Artery with Drug-eluting Intraluminal Device, Percutaneous Approach (ICD-10-PCS; principal; 2018-11-04 08:50)
PROC: 4A023N7 Measurement of Cardiac Sampling and Pressure, Left Heart, Percutaneous Approach (ICD-10-PCS; 2018-11-04 08:50)
DX: I21.4 Non-ST elevation (NSTEMI) myocardial infarction (principal); M41.9 Scoliosis, unspecified; F17.210 Nicotine dependence, cigarettes, uncomplicated; F32.9 Major depressive disorder, single episode, unspecified; F41.9 Anxiety disorder, unspecified; I10 Essential (primary) hypertension; I73.00 Raynaud's syndrome without gangrene; K21.9 Gastro-esophageal reflux disease without esophagitis; K58.9 Irritable bowel syndrome, unspecified; M79.7 Fibromyalgia; G89.29 Other chronic pain; R10.9 Unspecified abdominal pain; Z90.710 Acquired absence of both cervix and uterus; Z79.899 Other long term (current) drug therapy; Z91.018 Allergy to other foods; Z86.14 Personal history of Methicillin resistant Staphylococcus aureus infection; Z90.49 Acquired absence of other specified parts of digestive tract; Z80.0 Family history of malignant neoplasm of digestive organs; Z82.49 Family history of ischemic heart disease and other diseases of the circulatory system; Z83.3 Family history of diabetes mellitus; Z83.49 Family history of other endocrine, nutritional and metabolic diseases
CPT/HCPCS: 36415; 71046; 80053; 80061; 82565; 83735; 84484; 85025; 85610; 85730; 93306; 93458; 96365; 96376; 99285; C1874

== ENCOUNTER 2018-12-13 16:28 | Emergency (ER) | payer BC ==
[2018-12-13 16:43] VITALS: RESP 18; TEMP 97.8
[2018-12-13] MEDS ORDERED: NITROGLYCERIN OINT 1 INCH/GM PACKET TOPICAL STA (16:54)
[2018-12-13] MEDS ORDERED: ASPIRIN 81 MG PO STA (16:54)
[2018-12-13 17:13] LABS: Basophils % (A) 0 %; Eosinophils # (A) 0.1 k/uL (0-0.7); Eosinophils % (A) 1 %; HCT 47.3 % (34.0-46.0); HGB 15.3 gm/dL (11.4-16.0); Lymphocytes # (A) 2.5 k/uL (1.0-4.8); Lymphocytes % (A) 20 %; MCH 29.1 pg (25.0-35.0); MCHC 32.3 g/dL (31.0-37.0); MCV 90.1 fL (80.0-100.0); Mean Platelet Volume 7.6; Monocytes # (A) 0.5 k/uL (0-1.0); Monocytes % (A) 4 %; Neutrophils # (A) 9.3 k/uL (1.3-7.7); Neutrophils % (A) 74 %; Platelet Count 300 k/uL (150-450); RBC 5.25 m/uL (3.80-5.40); RDW 13.2 % (11.5-15.5); WBC 12.6 k/uL (3.8-10.6)
--- NOTE | 2018-12-13 17:23 | ED ---
General Adult HPI - General Chief complaint: Chest Pain Stated complaint: chest pain took nitro Time Seen by Provider: 12/13/18 16:45 Source: patient, RN notes reviewed Mode of arrival: wheelchair Limitations: no limitations - History of Present Illness Initial comments: This is a 53-year-old female presents to the emergency department with a past medical history with a recent stent placement. Patient states she's also supposed go back for another cardiac catheterization for a possible second stent placement. Patient states she started having chest pain about 5-4 she took a nitroglycerin it went away but the pain returned so she's decided come the emergency department. Patient states she was mildly short of breath sweaty and nauseated. Patient states the pain was in the center of her chest and radiated to her neck a little. Patient states currently she is only having very subtle pain but much improved compared to earlier. Patient denies any recent fever chills or cough. Patient denies any headache patient denies numbness weakness per patient denies any lightheadedness dizziness or near syncopal episode. Patient denies any abdominal pain. Patient denies nausea vomiting or diarrhea. Patient denies any leg swelling or calf tenderness. Patient states she does continue to smoke. Patient does have high blood pressure and high cholesterol and does have family history is positive for heart disease. - Related Data Home Medications Medication Instructions Recorded Confirmed DULoxetine HCL [Cymbalta] 60 mg PO HS 11/03/18 12/13/18 Esomeprazole Magnesium [NexIUM 20 mg PO HS 11/03/18 12/13/18 24Hr] Lidocaine 5% Patch [Lidoderm 5% 1 patch TOPICAL DAILY PRN 11/03/18 12/13/18 Patch] Lisinopril [Zestril] 10 mg PO HS 11/03/18 12/13/18 Methocarbamol [Robaxin-750] 750 mg PO DAILY PRN 11/03/18 12/13/18 Zolpidem Tartrate [Ambien] 10 mg PO HS PRN 11/03/18 12/13/18 oxyCODONE HCL [oxyCODONE HCL (IR)] 20 mg PO Q4H 11/03/18 12/13/18 rOPINIRole HCL [Requip] 4 mg PO HS 11/03/18 12/13/18 Ubidecarenone [Co Q-10] 100 mg PO DAILY 12/13/18 12/13/18 Previous Rx's Medication Instructions Recorded Aspirin EC [Ecotrin Low Dose] 81 mg PO DAILY #30 tablet. 11/05/18 Atorvastatin [Lipitor] 80 mg PO DAILY #30 tab 11/05/18 Clopidogrel [Plavix] 75 mg PO DAILY #30 tab 11/05/18 Metoprolol Tartrate [Lopressor] 12.5 mg PO BID #603 tab 11/05/18 Nitroglycerin Sl Tabs [Nitrostat] 0.4 mg SUBLINGUAL Q5M PRN #25 tab 11/05/18 Allergies Allergy/AdvReac Type Severity Reaction Status Date / Time cashew nut Allergy Swelling Verified 12/13/18 17:06 Review of Systems ROS Statement: Those systems with pertinent positive or pertinent negative responses have been documented in the HPI. ROS Other: All systems not noted in ROS Statement are negative. Past Medical History Past Medical History: Coronary Artery Disease (CAD), Fibromyalgia, Hypertension Additional Past Medical History / Comment(s): reynauds, chronic abdominal pain and nausea, History of Any Multi-Drug Resistant Organisms: MRSA Date of last positivie culture/infection: 2010 MDRO Source:: abdominal incision Past Surgical History: Cholecystectomy, Heart Catheterization With Stent, Hysterectomy, Tonsillectomy Additional Past Surgical History / Comment(s): back for scoliosis, scope of right knee, right dermoid ovarian cyst, left hand carpal tunnel, sinus sx, anal fistula, colonoscopy, endoscopy, partial colectomy, hiatal hernia repair, back l4 l5, rectal prolapse repair, right carpal tunnel repair Past Psychological History: Anxiety, Depression Smoking Status: Current every day smoker Past Alcohol Use History: None Reported Past Drug Use History: Marijuana - Past Family History Father Family Medical History: Coronary Artery Disease (CAD), Diabetes Mellitus, Thyroid Disorder Additional Family Medical History / Comment(s): Cancer of [place], thyroid, triple bipass at 49 yr old General Exam - General Exam Comments Initial Comments: GENERAL: Patient is well-developed and well-nourished. Patient is nontoxic and well- hydrated and is in mild distress. ENT: Neck is soft and supple. No significant lymphadenopathy is noted. Oropharynx is clear. Moist mucous membranes. Neck has full range of motion without eliciting any pain. EYES: The sclera were anicteric and conjunctiva were pink and moist. Extraocular movements were intact and pupils were equal round and reactive to light. Eyelids were unremarkable. PULMONARY: Unlabored respirations. Good breath sounds bilaterally. No audible rales rhonchi or wheezing was noted. CARDIOVASCULAR: There is a regular rate and rhythm without any murmurs gallops or rubs. ABDOMEN: Soft and nontender with normal bowel sounds. No palpable organomegaly was noted. There is no palpable pulsatile mass. SKIN: Skin is clear with no lesions or rashes and otherwise unremarkable. NEUROLOGIC: Patient is alert and oriented x3. Cranial nerves II through XII are grossly intact. Motor and sensory are also intact. Normal speech, volume and content. Symmetrical smile. MUSCULOSKELETAL: Normal extremities with adequate strength and full range of motion. No lower extremity swelling or edema. No calf tenderness. LYMPHATICS: No significant lymphadenopathy is noted PSYCHIATRIC: Normal psychiatric evaluation. Limitations: no limitations Course Vital Signs 12/13/18 16:35 Temperature 97.8 F Pulse Rate 86 Respiratory 18 Rate Blood Pressure 119/100 O2 Sat by Pulse 97 Oximetry Medical Decision Making - Medical Decision Making I discussed smoking cessation for greater than 3 minutes. The risks of smoking were discussed with the patient including but not limited to risks of cancer, stroke, coronary artery disease and COPD. Also discussed with the patient were multiple methods of quitting smoking. Lastly we discussed the financial costs of smoking. EKG shows normal sinus rhythm at 90 bpm NJ interval is on a 54 QRS is 82 QT interval 370 QTC is 452 per patient's EKG shows no ST segment elevation or depression. Chest x-ray shows no acute abnormality. I will begin the room once all the results are back is discussed the results with the patient. I suggested to the patient was monitored medical opinion that she should stay she did not want to stay I went over the risks he continued to states she was on a leave and sign out AMA. - Lab Data Result diagrams: 12/13/18 16:56 12/13/18 16:56 Lab Results 12/13/18 12/13/18 12/13/18 Range/Units 16:56 16:56 16:56 WBC 12.6 H (3.8-10.6) k/uL RBC 5.25 (3.80-5.40) m/uL Hgb 15.3 (11.4-16.0) gm/dL Hct 47.3 H (34.0-46.0) % MCV 90.1 (80.0-100.0) fL MCH 29.1 (25.0-35.0) pg MCHC 32.3 (31.0-37.0) g/dL RDW 13.2 (11.5-15.5) % Plt Count 300 (150-450) k/uL Neutrophils % 74 % Lymphocytes % 20 % Monocytes % 4 % Eosinophils % 1 % Basophils % 0 % Neutrophils # 9.3 H (1.3-7.7) k/uL Lymphocytes # 2.5 (1.0-4.8) k/uL Monocytes # 0.5 (0-1.0) k/uL Eosinophils # 0.1 (0-0.7) k/uL Basophils # 0.0 (0-0.2) k/uL PT 11.1 (9.0-12.0) sec INR 1.1 (<1.2) APTT 20.4 L (22.0-30.0) sec Sodium 141 (137-145) mmol/L Potassium 4.4 (3.5-5.1) mmol/L Chloride 106 (98-107) mmol/L Carbon Dioxide 27 (22-30) mmol/L Anion Gap 8 mmol/L BUN 7 (7-17) mg/dL Creatinine 0.73 (0.52-1.04) mg/dL Est GFR (CKD-EPI)AfAm >90 (>60 ml/min/1.73 sqM) Est GFR (CKD-EPI)NonAf >90 (>60 ml/min/1.73 sqM) Glucose 125 H (74-99) mg/dL Calcium 10.0 (8.4-10.2) mg/dL Magnesium 1.9 (1.6-2.3) mg/dL Total Bilirubin 0.6 (0.2-1.3) mg/dL AST 22 (14-36) U/L ALT 24 (9-52) U/L Alkaline Phosphatase 130 H (38-126) U/L Troponin I (0.000-0.034) ng/mL Total Protein 7.7 (6.3-8.2) g/dL Albumin 4.4 (3.5-5.0) g/dL 12/13/18 Range/Units 16:56 WBC (3.8-10.6) k/uL RBC (3.80-5.40) m/uL Hgb (11.4-16.0) gm/dL Hct (34.0-46.0) % MCV (80.0-100.0) fL MCH (25.0-35.0) pg MCHC (31.0-37.0) g/dL RDW (11.5-15.5) % Plt Count (150-450) k/uL Neutrophils % % Lymphocytes % % Monocytes % % Eosinophils % % Basophils % % Neutrophils # (1.3-7.7) k/uL Lymphocytes # (1.0-4.8) k/uL Monocytes # (0-1.0) k/uL Eosinophils # (0-0.7) k/uL Basophils # (0-0.2) k/uL PT (9.0-12.0) sec INR (<1.2) APTT (22.0-30.0) sec Sodium (137-145) mmol/L Potassium (3.5-5.1) mmol/L Chloride (98-107) mmol/L Carbon Dioxide (22-30) mmol/L Anion Gap mmol/L BUN (7-17) mg/dL Creatinine (0.52-1.04) mg/dL Est GFR (CKD-EPI)AfAm (>60 ml/min/1.73 sqM) Est GFR (CKD-EPI)NonAf (>60 ml/min/1.73 sqM) Glucose (74-99) mg/dL Calcium (8.4-10.2) mg/dL Magnesium (1.6-2.3) mg/dL Total Bilirubin (0.2-1.3) mg/dL AST (14-36) U/L ALT (9-52) U/L Alkaline Phosphatase (38-126) U/L Troponin I <0.012 (0.000-0.034) ng/mL Total Protein (6.3-8.2) g/dL Albumin (3.5-5.0) g/dL Disposition Clinical Impression: Unstable angina pectoris Disposition: Left Against Medical Advice Referrals: Fransico Urena MD [Primary Care Provider] - 1-2 days Time of Disposition: 18:02
--- NOTE | 2018-12-13 17:25 | XR ---
EXAMINATION TYPE: XR chest 2V DATE OF EXAM: 12/13/2018 COMPARISON: 11/03/2018 HISTORY: Chest pain TECHNIQUE: Frontal and lateral views of the chest are obtained. FINDINGS: Heart and mediastinum are normal. Lungs are clear. Diaphragm is normal. There are chest le ads. Bony thorax is intact. IMPRESSION: Normal chest. No change.
[2018-12-13 17:30] LABS: ALT 24 U/L (9-52); AST 22 U/L (14-36); Albumin 4.4 g/dL (3.5-5.0); Alkaline Phosphatase 130 U/L (38-126); Anion Gap 8 mmol/L; Blood Urea Nitrogen 7 mg/dL (7-17); Carbon Dioxide 27 mmol/L (22-30); Chloride 106 mmol/L (98-107); Glucose 125 mg/dL (74-99); Magnesium 1.9 mg/dL (1.6-2.3); Potassium 4.4 mmol/L (3.5-5.1); Sodium 141 mmol/L (137-145); Total Bilirubin 0.6 mg/dL (0.2-1.3); Total Protein 7.7 g/dL (6.3-8.2)
[2018-12-13 17:31] LABS: INR 1.1 (<1.2); Prothrombin Time 11.1 sec (9.0-12.0)
[2018-12-13 17:35] LABS: Partial Thromboplastin Time 20.4 sec (22.0-30.0)
[2018-12-13] MEDS ORDERED: HEPARIN SODIUM,PORCINE 5,000 UNIT/ML 1 ML VIAL IV ONE (17:55)
[2018-12-13] MEDS ORDERED: HEPARIN SOD,PORK IN 0.45% NACL 25,000 UNIT in 0.45% NACL 1 250ML.BAG IV SCH (18:00)
[2018-12-13 18:05] VITALS: BP 138/84; PULSE 90
== END 2018-12-13 18:05 | disposition left against medical advice (07) ==
LOC: EC 16:28
DX: I25.110 Atherosclerotic heart disease of native coronary artery with unstable angina pectoris (principal); M79.7 Fibromyalgia; I10 Essential (primary) hypertension; Z86.14 Personal history of Methicillin resistant Staphylococcus aureus infection; F32.9 Major depressive disorder, single episode, unspecified; F41.9 Anxiety disorder, unspecified; F17.200 Nicotine dependence, unspecified, uncomplicated; Z71.6 Tobacco abuse counseling; Z79.891 Long term (current) use of opiate analgesic; Z79.899 Other long term (current) drug therapy; Z91.018 Allergy to other foods; Z95.5 Presence of coronary angioplasty implant and graft; Z82.49 Family history of ischemic heart disease and other diseases of the circulatory system; Z53.29 Procedure and treatment not carried out because of patient's decision for other reasons
CPT/HCPCS: 36415; 71046; 80053; 83735; 84484; 85025; 85610; 85730; 93005; 99285; 99406

== ENCOUNTER 2018-12-21 08:13 | Day surgery (SDC) | payer BC ==
[2018-12-16 12:29] VITALS: BMI 34.0
[~2018-12-21 08:13] MED LIST: ALPRAZolam 0.25 MG TAB PO PRN; ALPRAZolam 0.5 MG TAB PO PRN; ASPIRIN 325 MG TAB PO ONE; ATORVASTATIN 80 MG TAB PO ONE; NITROGLYCERIN SL TABS 0.4 MG TAB SUBLINGUAL PRN; SODIUM CHLORIDE 0.9% 1,000 ML in EMPTY BAG 1 BAG IV ONE
[2018-12-21 08:47] LABS: Basophils # (A) 0.1 k/uL (0-0.2); Basophils % (A) 0 %; Eosinophils # (A) 0.2 k/uL (0-0.7); Eosinophils % (A) 2 %; HCT 42.7 % (34.0-46.0); HGB 14.1 gm/dL (11.4-16.0); Lymphocytes # (A) 2.9 k/uL (1.0-4.8); Lymphocytes % (A) 21 %; MCH 29.4 pg (25.0-35.0); MCHC 33.1 g/dL (31.0-37.0); MCV 88.8 fL (80.0-100.0); Mean Platelet Volume 7.8; Monocytes # (A) 0.7 k/uL (0-1.0); Monocytes % (A) 5 %; Neutrophils # (A) 9.8 k/uL (1.3-7.7); Neutrophils % (A) 70 %; Platelet Count 378 k/uL (150-450); RBC 4.81 m/uL (3.80-5.40); RDW 13.5 % (11.5-15.5)
[2018-12-21 08:48] VITALS: RESP 16; TEMP 98.3
[2018-12-21] MEDS ORDERED: LIDOCAINE 1% INJ 10MG/ML (20 ML MDV) ONE (09:04)
[2018-12-21] MEDS ORDERED: HEPARIN SODIUM 1,000 UN/ML (10ML VL) ONE (09:04)
[2018-12-21] MEDS ORDERED: VERAPAMIL 2.5 MG/ML 2 ML AMP ONE (09:04)
[2018-12-21] MEDS ORDERED: fentaNYL (PF) 50 MCG/ML 2 ML AMP ONE (09:04)
[2018-12-21] MEDS: MIDAZOLAM (PF) 2 MG/2 ML VIAL IVP ONE ×2 (09:19→09:27)
[2018-12-21] MEDS ORDERED: fentaNYL (PF) 50 MCG/ML 2 ML AMP IVP ONE (09:19)
[2018-12-21] MEDS ORDERED: LIDOCAINE 1% INJ 10MG/ML (20 ML MDV) SQ ONE (09:22)
[2018-12-21] MEDS: VERAPAMIL 2.5 MG/ML 2 ML AMP INTRAARTER ONE ×2 (09:26→10:20)
[2018-12-21] MEDS ORDERED: HEPARIN SODIUM 1,000 UN/ML (10ML VL) IV ONE (09:29)
--- NOTE | 2018-12-21 10:03 | P.CARDCATH ---
Date of Procedure: 12/21/18 Preoperative Diagnosis: This 53-year-old female who was recently admitted to the hospital with unstable angina/non-STEMI and had a cardiac catheterization and stent placement of the left circumflex coronary artery. Subsequently, patient continued to have intermittent chest pains. She was evaluated by stress test in the office which showed ischemia in the anteroapical area. Patient was subsequently seen in the emergency room with chest pains. In view of ongoing chest pain and possible ischemia in the anteroapical area, patient is advised to have a cardiac catheterization. Patient is fully aware of the risks and benefits of the procedure Postoperative Diagnosis: Intermediate lesion in the LAD Description of Procedure: HISTORY: This is a 53-year-old female with history of previous stent placement of circumflex being evaluated because of recurrent chest pain and positive stress test CONSENT:I have discussed the risks, benefits and alternative therapies for the above-mentioned procedure and for both sedation/analgesia as well as necessary blood product administration, if indicated, as they pertain to this patient. The patient has indicated understanding and acceptance of the risks and procedures discussed. [] PROCEDURE: Patient was brought to the lab in a fasting state. Patient was given some IV sedation. The right wrist is infiltrated with lidocaine and right radial artery was entered using Seldinger technique. A 6-Armenian catheter was left in place and selective coronary arteriography was performed. Patient tolerated the procedure well. No immediate complications were noted . Patient is waiting to be evaluated by Dr. Self. Patient most probably have FFR of the mid LAD to establish significance of the lesion Conscious Sedation: Versed 1mg Fentanyl 50 g Duration 25minutes HEMODYNAMICS: The aortic pressure was about 110-120/60. The left ventricle end- diastolic pressure was not measured SELECTIVE CORONARY ARTERIOGRAPHY: LEFT MAIN: Short and divides into the LAD and circumf vivek coronary artery immediately. Almost nonexisting left main THE LEFT ANTERIOR DESCENDING CORONARY ARTERY: This is a moderate caliber vessel with an eccentric lesion in mid LAD. Appears to be about 50-60%. However because of positive stress test and ongoing chest pain, We will do FFR of the lesion establish the same the severity of the lesion THE LEFT CIRCUMFLEX AND IS CORONARY ARTERY: Good caliber vessel with patent stent in the proximal portion THE RIGHT CORONARY ARTERY:. Moderate caliber vessel and dominant in distribution. Free of any occlusive disease LEFT VENTRICULOGRAPHY:. Not performed FINAL IMPRESSION:, Stable coronary artery disease with intermittent lesion in the LAD and patent stent in the circumflex PLAN: FFR of the LAD. If it is not significant, we'll continue medical therapy. If it is significant, patient may need stent placement PROGNOSIS: Fair
[2018-12-21] MEDS ORDERED: BIVALIRUDIN BOLUS 250 MG/50 ML IV ONE (10:09)
[2018-12-21] MEDS ORDERED: BIVALIRUDIN 250 MG in SODIUM CHLORIDE 0.9% 50 ML IV ONE (10:10)
[2018-12-21] MEDS ORDERED: ADENOSINE 90 MG in SODIUM CHLORIDE 0.9% 60 ML IVP ONE (10:15)
[2018-12-21] MEDS ORDERED: IOPAMIDOL-370 100ML BTL INJ ONE (10:21)
[2018-12-21] MEDS ORDERED: SODIUM CHLORIDE 0.9% 1,000 ML IV SCH (10:35)
--- NOTE | 2018-12-21 11:43 | PCN ---
PROCEDURE NOTE FRACTIONAL FLOW RESERVE DATE OF SERVICE: December 21, 2018 PERFORMING PHYSICIAN: John Granger MD. PROCEDURE PERFORMED: Fractional flow reserve, FFR, of the left anterior descending artery. INDICATION: This is a 53-year-old female patient who sees Dr. Rodriguez in the office as an outpatient with known history of coronary artery disease and prior stenting of the left circumflex, who was experiencing symptoms of chest discomfort and she underwent myocardial perfusion imaging stress test and that revealed an anterior ischemia. She underwent a heart catheterization and that revealed intermediate disease in patent stent in the left circumflex with intermediate disease involving the LAD in the midportion. COMPLICATION: None. LEVEL OF SEDATION: Moderate with sedation length of 22 minutes. PROCEDURE DESCRIPTION: Please refer to diagnostic heart catheterization that was performed by Dr. Rodriguez. Anticoagulation was initiated using Angiomax. Subsequently I did after zeroing the Doppler wire and equalizing between the Doppler wire and the guiding catheter, we did FFR per IV adenosine infusion. The FFR came in to be at 0.84. The iFR was 0.90. We deferred the patient from angioplasty and stenting. POSTPROCEDURE MANAGEMENT: 1. Maximize medical treatment. 2. Follow up with the patient. MMODL / IJN: [id number] /
[2018-12-21 13:21] VITALS: PULSE 60
[2018-12-21 14:49] VITALS: BP 108/72
== END 2018-12-21 14:50 | disposition home or self-care (01) ==
LOC: CATHCVL 08:13
PROVIDERS: ATTEND Internal Medicine Cardiovascular Disease
DX: I25.110 Atherosclerotic heart disease of native coronary artery with unstable angina pectoris (principal); I10 Essential (primary) hypertension; E78.5 Hyperlipidemia, unspecified; Z72.0 Tobacco use; E78.00 Pure hypercholesterolemia, unspecified; Z95.5 Presence of coronary angioplasty implant and graft; I25.2 Old myocardial infarction; Z82.49 Family history of ischemic heart disease and other diseases of the circulatory system; Z79.02 Long term (current) use of antithrombotics/antiplatelets; Z79.82 Long term (current) use of aspirin; Z79.891 Long term (current) use of opiate analgesic; Z79.899 Other long term (current) drug therapy
CPT/HCPCS: 93571; 93454; 85025; C1769 ×2; C1887; C1894; J2001; J3010; J1644; J0583; J0153; Q9967; J2250

== ENCOUNTER 2019-02-16 05:13 | Inpatient (IN) | payer BC ==
[2019-02-16] MEDS ORDERED: MORPHINE SULFATE 4 MG/ML SYRINGE IM STA (07:29)
[2019-02-16] MEDS ORDERED: KETOROLAC 60 MG/2 ML VIAL IM STA (07:29)
[2019-02-16] MEDS ORDERED: ORPHENADRINE 30 MG/ML 2 ML VIAL IM STA (07:30)
--- NOTE | 2019-02-16 07:34 | ED ---
Lower Extremity Injury HPI - General Source: patient, family, RN notes reviewed, old records reviewed Mode of arrival: wheelchair Limitations: no limitations <Antonia Swift - Last Filed: 02/16/19 12:12> <Faisal Monreal - Last Filed: 02/16/19 20:15> - General Chief Complaint: Extremity Injury, Lower Stated Complaint: Hip Pain Time Seen by Provider: 02/16/19 07:21 - History of Present Illness Initial Comments: Patient is a 53-year-old female presents today complaining of left hip and back pain. Patient reports she fell proximally 6 days ago. She had x-rays completed at the [facility] and they were negative for any acute process. Patient states that she was told to come here for further evaluation for increased pain. She is given a tramadol there today. Patient states it's painful for her to bear weight. Patient states that she has some tingling and feels like her left muscles in her legs aren't of ice. Patient states that she's had no other symptoms. (Antonia Swift) - Related Data Home Medications Medication Instructions Recorded Confirmed DULoxetine HCL [Cymbalta] 60 mg PO HS 11/03/18 02/16/19 Esomeprazole Magnesium [NexIUM 20 mg PO HS 11/03/18 02/16/19 24Hr] Lidocaine 5% Patch [Lidoderm 5% 1 patch TOPICAL DAILY PRN 11/03/18 02/16/19 Patch] Lisinopril [Zestril] 10 mg PO HS 11/03/18 02/16/19 Methocarbamol [Robaxin-750] 750 mg PO DAILY PRN 11/03/18 02/16/19 oxyCODONE HCL [oxyCODONE HCL (IR)] 20 mg PO Q4H PRN 11/03/18 02/16/19 rOPINIRole HCL [Requip] 4 mg PO HS 11/03/18 02/16/19 Zolpidem [Ambien] 10 mg PO HS PRN 02/16/19 02/16/19 Previous Rx's Medication Instructions Recorded Aspirin EC [Ecotrin Low Dose] 81 mg PO DAILY #30 tablet. 11/05/18 Atorvastatin [Lipitor] 80 mg PO DAILY #30 tab 11/05/18 Clopidogrel [Plavix] 75 mg PO DAILY #30 tab 11/05/18 Metoprolol Tartrate [Lopressor] 12.5 mg PO BID #603 tab 11/05/18 Nitroglycerin Sl Tabs [Nitrostat] 0.4 mg SUBLINGUAL Q5M PRN tab 12/21/18 Allergies Allergy/AdvReac Type Severity Reaction Status Date / Time cashew nut Allergy Swelling Verified 02/16/19 07:41 Review of Systems ROS Other: All systems not noted in ROS Statement are negative. <Antonia Swift - Last Filed: 02/16/19 12:12> ROS Other: All systems not noted in ROS Statement are negative. <Faisal Monreal - Last Filed: 02/16/19 20:15> ROS Statement: Those systems with pertinent positive or pertinent negative responses have been documented in the HPI. Past Medical History Past Medical History: Chest Pain / Angina, Fibromyalgia, Hypertension, Myocardial Infarction (CT) Additional Past Medical History / Comment(s): reynauds, chronic abdominal pain and nausea, recent hospitalization in October for chest pain Last Myocardial Infarction Date:: October 2018 History of Any Multi-Drug Resistant Organisms: MRSA Date of last positivie culture/infection: 2010 MDRO Source:: abdominal incision Past Surgical History: Back Surgery, Bowel Resection, Cholecystectomy, Heart Catheterization With Stent, Hernia Repair, Hysterectomy, Tonsillectomy Additional Past Surgical History / Comment(s): arthroscopy right knee, right dermoid ovarian cyst, sinus sx, anal fistula, colonoscopy, endoscopy, partial colectomy, hiatal hernia repair, rectal prolapse repair, freddie. carpal tunnel repair Past Anesthesia/Blood Transfusion Reactions: No Reported Reaction Date of Last Stent Placement:: October 2018 Past Psychological History: Anxiety, Depression Smoking Status: Current every day smoker Past Alcohol Use History: None Reported Past Drug Use History: None Reported - Past Family History Father Family Medical History: Coronary Artery Disease (CAD), Diabetes Mellitus, Thyroid Disorder Additional Family Medical History / Comment(s): Cancer of [place], thyroid, triple bipass at 49 yr old <Antonia Swift - Last Filed: 02/16/19 12:12> General Exam Limitations: no limitations General appearance: alert, in no apparent distress Head exam: Present: atraumatic, normocephalic, normal inspection Eye exam: Present: normal appearance, PERRL, EOMI. Absent: scleral icterus, conjunctival injection, periorbital swelling ENT exam: Present: normal exam, mucous membranes moist Neck exam: Present: normal inspection. Absent: tenderness, meningismus, lymphadenopathy Respiratory exam: Present: normal lung sounds bilaterally. Absent: respiratory distress, wheezes, rales, rhonchi, stridor Cardiovascular Exam: Present: regular rate, normal rhythm, normal heart sounds. Absent: systolic murmur, diastolic murmur, rubs, gallop, clicks GI/Abdominal exam: Present: soft, normal bowel sounds. Absent: distended, tenderness, guarding, rebound, rigid Extremities exam: Present: normal inspection, full ROM, normal capillary refill, other (Tenderness over the left sciatic notch. Normal sensation and good pulses over the dorsalis pedis. Patient has no other symptoms.). Absent: tenderness, pedal edema, joint swelling, calf tenderness Back exam: Present: normal inspection Neurological exam: Present: alert, oriented X3, CN II-XII intact <Antonia Swift - Last Filed: 02/16/19 12:12> - General Exam Comments Initial Comments: Patient is a 53-year-old female. Alert and oriented 3. No significant distress. (Antonia Swift) Course <Antonia Swift - Last Filed: 02/16/19 12:12> Vital Signs 02/16/19 02/16/19 02/16/19 05:27 10:00 15:29 Temperature 98.4 F Pulse Rate 91 92 Respiratory 18 20 20 Rate Blood Pressure 156/101 142/98 149/77 O2 Sat by Pulse 98 97 Oximetry - Reevaluation(s) Reevaluation #1: 02/16/19 09:09 Told sounds were done to have patient's pain free to go to computed tomography scan. She was given IM Toradol, Norflex morphine and Dilaudid. She continues to have pain and would not stay still for computed tomography scan. (Antonia Swift) Medical Decision Making - Radiology Data Radiology results: report reviewed <Antonia Swift - Last Filed: 02/16/19 12:12> - Lab Data Result diagrams: 02/16/19 12:14 02/16/19 12:14 <Faisal Monreal - Last Filed: 02/16/19 20:15> - Medical Decision Making Patient's 53-year-old female presents 6 days after a fall complaining of left hip and back pain. Symptoms seemed report exacerbated with movement, concern for sciatica. Patient is given multiple injections of IM pain medications with little relief. Multiple attempts to get Patient to lay still for a computed tomography scan. Patient mentioned include computed tomography scan of Lopez spinal left hip. This was negative for any fracture. There is evidence of degenerative changes and postop changes in her lumbar spine. I reevaluation Patient is being very comfortable after 2 of Dilaudid, 4 of morphine, 5 of Valium, Norflex and Toradol. Patient's case discussed Dr. Reed close exam Patient. She states she's been accountable, sweating due to pain. She denies any chest pain or other symptoms. Patient movement of this time for intractable back pain, likely related to sciatica. Consults to Dr. Heart. (Antonia Swift) Patient with left lower back pain radiating into the left leg. Patient evaluated emergency department by myself. She is in significant pain despite treatment with multiple doses of narcotic pain medication as well as anti- inflammatories and muscle relaxers. CT reviewed of both the lumbar spine and left hip. Patient is neurovascularly intact, distal pulses are 2+. She is able to stand although any movement does worsen her pain. She will be admitted for pain control and orthopedic evaluation. (Faisal Monreal) - Radiology Data CT lumbar spine shows no paraspinal masses identified. Postop changes. No fracture subluxation. Spinal curvature multilevel facet arthropathy. Degenerative disc disease noted and foraminal encroachment. Lumbar MRI may be of benefit for increased sensitivity. Negative CT of the hip. (Antonai Swift) Disposition Is patient prescribed a controlled substance at d/c from ED?: No Time of Disposition: 12:15 <Antonia Swift - Last Filed: 02/16/19 12:12> <Faisal Monreal - Last Filed: 02/16/19 20:15> Clinical Impression: Intractable back pain Disposition: ADMITTED IP TO THIS HOSP Condition: Good
[2019-02-16] MEDS ORDERED: HYDROmorphone 1 MG/ML 1 ML SYRINGE IM STA ×2 (08:21→09:20)
[2019-02-16] MEDS ORDERED: DIAZEPAM 5 MG/ML 2 ML INJ IM ONE (09:09)
--- NOTE | 2019-02-16 10:48 | CT ---
EXAMINATION TYPE: CT lumbar spine wo con DATE OF EXAM: 02/16/2019 COMPARISON: CT abdomen pelvis 11/18/2013 HISTORY: low back pain and left hip cramping/pain post fall [address] DLP: 2227.2 mGycm Automated exposure control for dose reduction was used. An unenhanced CT of the lumbar spine was performed. Bone and soft tissue window settings are submitt ed as well as coronal and sagittal reconstructions. FINDINGS: Spinal curvature is again noted. Degenerative disc changes are present especially with loss of disc h eight L4-5, associated vacuum phenomenon, endplate spondylosis and sclerosis. Lumbar vertebral bodies are intact. Suspect postop changes to the lamina at L5 on the left, however. There is multilevel fac et arthropathy, lateral extension of endplate disc complex causes foraminal encroachment L4-5, L5-S1. Multilevel posterior disc bulges results in anterior mass effect, there is moderate spinal stenosis suspected L3-4. Surgical clips present in the right upper quadrant and at the level of the gastroesophageal junction. IMPRESSION: No paraspinal masses are identified. Correlate for postop change. No acute fracture or subluxation. S damien curvature, multilevel facet arthropathy, degenerative disc disease, foraminal encroachment, lum bar MRI may be of increased sensitivity.
--- NOTE | 2019-02-16 10:52 | CT ---
EXAMINATION TYPE: CT hip LT wo con DATE OF EXAM: 02/16/2019 COMPARISON: None HISTORY: low back pain and left hip cramping/pain post fall [address] DLP: 806.3 mGycm Automated exposure control for dose reduction was used. Helical imaging through the left hip. Coronal and sagittal reconstructions. FINDINGS: Calcification present at the insertion of the gluteus tendons at the carotid sheath trochanter on the left noted. Alignment is maintained. There is some marginal spurring present, underlying osteoarthri tic change. IMPRESSION: NO FRACTURE OR DISLOCATION.
[2019-02-16] MEDS: LIDOCAINE 5% PATCH TOPICAL SCH (11:24)
[2019-02-16] MEDS ORDERED: SODIUM CHLORIDE 0.9% 1,000 ML IV ONE (11:43)
[2019-02-16] MEDS ORDERED: IBUPROFEN 400 MG TAB PO PRN (12:15)
[2019-02-16] MEDS ORDERED: ACETAMINOPHEN TAB 325 MG TAB PO PRN (12:15)
[2019-02-16] MEDS ORDERED: NALOXONE 0.4 MG/ML 1 ML VIAL IV PRN (12:15)
[2019-02-16 12:24] LABS: Basophils % (A) 0 %; Eosinophils # (A) 0.1 k/uL (0-0.7); Eosinophils % (A) 1 %; HCT 47.5 % (34.0-46.0); HGB 15.6 gm/dL (11.4-16.0); Lymphocytes % (A) 5 %; MCHC 32.9 g/dL (31.0-37.0); MCV 88.2 fL (80.0-100.0); Mean Platelet Volume 7.8; Monocytes # (A) 0.5 k/uL (0-1.0); Monocytes % (A) 2 %; Neutrophils # (A) 18.2 k/uL (1.3-7.7); Neutrophils % (A) 91 %; Platelet Count 413 k/uL (150-450); RBC 5.38 m/uL (3.80-5.40); RDW 14.9 % (11.5-15.5)
[2019-02-16 12:37] LABS: ALT 15 U/L (9-52); AST 41 U/L (14-36); African American GFR (CKD) >90 (>60 ml/min/1.73 sqM); Albumin 4.7 g/dL (3.5-5.0); Alkaline Phosphatase 150 U/L (38-126); Anion Gap 10 mmol/L; Blood Urea Nitrogen 15 mg/dL (7-17); Calcium 10.3 mg/dL (8.4-10.2); Carbon Dioxide 25 mmol/L (22-30); Chloride 108 mmol/L (98-107); Glucose 161 mg/dL (74-99); Potassium 4.6 mmol/L (3.5-5.1); Sodium 143 mmol/L (137-145); Total Bilirubin 0.7 mg/dL (0.2-1.3); Total Protein 8.3 g/dL (6.3-8.2)
[2019-02-16] MEDS: HYDROmorphone 1 MG/ML 1 ML SYRINGE IVP PRN ×4 (14:17→22:25)
[2019-02-16] MEDS: SODIUM CHLORIDE 0.9% 1,000 ML IV SCH ×2 (14:24→21:00)
[2019-02-16] MEDS: KETOROLAC 30 MG/ML 1 ML VIAL IVP PRN (15:59)
[2019-02-16] MEDS ORDERED: METHOCARBAMOL 750 MG TAB PO PRN (18:03)
[2019-02-16] MEDS ORDERED: NITROGLYCERIN SL TABS 0.4 MG TAB SUBLINGUAL PRN (18:03)
[2019-02-16] MEDS ORDERED: TEMAZEPAM 15 MG CAP PO PRN (18:06)
--- NOTE | 2019-02-16 19:01 | XR ---
EXAMINATION TYPE: XR chest 1V portable DATE OF EXAM: 02/16/2019 COMPARISON: 12/13/2018 HISTORY: Heart failure. Short of breath TECHNIQUE: Single frontal view of the chest is obtained. FINDINGS: Heart and mediastinum are normal. Lungs are clear. Costophrenic angles are clear. The bony thorax appears intact. IMPRESSION: No active cardiopulmonary disease. No change. Normal heart.
--- NOTE | 2019-02-16 19:51 | HP ---
HISTORY AND PHYSICAL DATE OF SERVICE: 02/16/2019 CHIEF COMPLAINT: Left leg pain. HISTORY OF PRESENT ILLNESS: This 57-year-old woman with a past medical history of multiple medical problems including history of CAD, history of fibromyalgia, GERD, hypertension, hyperlipidemia, history of DJD, history of back surgery, history of CAD, stent, history of bowel resection, history of anxiety, depression, being followed by Dr. Urena in the outpatient setting apparently accidentally slipped and fell while gardening and taking out a plant. The patient was complaining of some spasms the next day, but subsequently patient developed severe pain of the left hip area and the patient is unable to walk and severe spasms and multiple other medical issues. Patient came to [facility] and was admitted for further evaluation and treatment. Patient underwent a hip and lumbar spine CAT scan which showed significant DJD but no fracture dislocation. Patient admitted for evaluation and treatment. Of note, the patient had multiple surgeries for scoliosis, from [place] several years ago and the most recent was about 5 years ago at [facility]. There is no history of fever, rigors or chills. No history of headache, loss of consciousness, seizures at this time. White count is elevated. PAST MEDICAL HISTORY: History of CAD, history of chest pain, fibromyalgia, GERD, hypertension, hyperlipidemia, myocardial infarction, DJD, history of back surgery, history of CAD/stent, history or anxiety/depression. MEDICATIONS: Prior to admission: 1. Requip 4 mg p.o. q.h.s. 2. Oxycodone 20 mg q.4 p.r.n. 3. Ambien 10 mg q.h.s. p.r.n. 4. Nitrostat 0.4 mg sublingual p.r.n. 5. Lopressor 12.5 mg p.o. b.i.d. 6. Robaxin 750 p.o. daily p.r.n. 7. Zestril 10 mg p.o. q.h.s. 8. patch 5% daily p.r.n. 9. Nexium 20 mg p.o. q.h.s. 10.Cymbalta 60 mg q.h.s. 11.Plavix 75 mg p.o. daily. 12.Lipitor 80 mg q.h.s. 13.Ecotrin 81 mg p.o. daily. ALLERGIES: CASHEW NUTS. FAMILY HISTORY: Family history of CAD, diabetes, hypothyroidism, cancer of the colon, triple bypass. SOCIAL HISTORY: History of smoking, history of THC. REVIEW OF SYSTEMS: ENT: No diminished vision. No diminished hearing. CARDIOVASCULAR: No angina or palpitations. RESPIRATION: No cough. No hemoptysis. GI no nausea or vomiting. no dysuria. NERVOUS SYSTEM: As mentioned earlier. ALLERGY/IMMUNOLOGY: No asthma or hayfever. MUSCULOSKELETAL: As mentioned earlier. HEMATOLOGY/ONCOLOGY: No history of anemia. ENDOCRINE: No history of diabetes mellitus or hypothyroidism. CONSTITUTIONAL: As mentioned earlier. DERMATOLOGY: Negative. RHEUMATOLOGY: Negative. PSYCHIATRY: As mentioned earlier. PHYSICAL EXAMINATION: Alert and oriented times three. Pulse 84, blood pressure 133/70. Respirations 18. Temperature 97.2, pulse ox 97% on room air. HEENT: Conjunctivae normal. Oral mucosa moist. NECK is no jugular venous distention. No carotid bruit. No lymph node enlargement. CARDIOVASCULAR: S1, S2 muffled. RESPIRATORY: Breath sounds diminished in the bases. No rhonchi. No crackles. ABDOMEN: Soft, nontender. No mass palpable. LEGS: No edema. No swelling. NERVOUS SYSTEM: Higher functions as mentioned earlier. Moves all 4 limbs. Otherwise movement of the left leg is extremely painful. Some local tenderness also felt in the hip area on the left side. Some back area also. Rolling in the bed also elicits severe pain and spasm of the spasm of the leg also. NERVOUS SYSTEM: Otherwise, no other focal deficits. SKIN: No ulcers, rashes or bleeding. JOINTS: As mentioned earlier. LYMPHATICS: No lymph nodes palpable in the neck, axillae or groin. LABS: WBC 20, hemoglobin 15.6, sodium 140, potassium 4.6. ASSESSMENT: 1. Fall and severe left hip pain, possible contusion, rule out femoral neuropathy. 2. Increased WBC. 3. Severe degenerative joint disease. 4. Multiple back surgeries including scoliosis surgery. 5. Elevated calcium. 6. History of coronary artery disease/ stent. 7. History of fibromyalgia. 8. History of gastroesophageal reflux disease. 9. Hypertension. 10.Hyperlipidemia. 11.History of chronic pain syndrome. 12.History of chronic abdominal pain and nausea. 13.History of diverticulitis. 14.History of Raynaud's phenomenon. 15.History of irritable bowel syndrome. 16.History of MRSA. 17.History of anxiety, depression. 18.Continued ongoing nicotine dependence. 19.History of THC occasionally. RECOMMENDATIONS AND DISCUSSION: In this 53-year-old woman who presented with multiple complex medical issues, we will monitor the patient closely, continue the current medications, management and symptomatic treatment. Otherwise, at this time, I recommend continue with IV pain medications. Patient is not obtaining relief with Dilaudid 1 mg every 3 hours. We will increase to 2 hours but hold the medication if the patient drowsy. Please note patient is take taking OxyContin 20 mg p.r.n. at home. Otherwise, I would also recommend orthopedic consultation. DVT prophylaxis. There is no evidence of fracture at this time. The patient has significant gait dysfunction. We will continue to monitor. Resume the home medications. I would also recommend a creatinine kinase to rule out the possibility of rhabdomyolysis. The white count is also elevated. Exact etiology is unknown at this time. I recommend cultures. No evidence of significant any infections at this time. However, overall prognosis extremely guarded. Overall prognosis extremely guarded and this patient will require more than 2 nights hospital stay and inpatient admission for evaluation and elucidation of the patient's current medical problems and treatment. I discussed with the family at length. Further recommendations to follow. MMODL / IJN: [id number] / ADRIENNE
[2019-02-16] MEDS: PANTOPRAZOLE 40 MG TABLET PO SCH (20:37)
[2019-02-16] MEDS: HEPARIN SODIUM,PORCINE 5,000 UNIT/ML 1 ML VIAL SQ SCH (20:37)
[2019-02-16] MEDS: METOPROLOL TARTRATE 12.5 MG TAB PO SCH (20:37)
[2019-02-16] MEDS: DULoxetine HCL 60 MG CAPSULE.DR PO SCH ×2 (20:37→20:39)
[2019-02-16] MEDS: rOPINIRole HCL 4 MG TABLET PO SCH (20:37)
[2019-02-16] MEDS: LISINOPRIL 10 MG TAB PO SCH (20:37)
[2019-02-16] MEDS: DIAZEPAM 5 MG/ML 2 ML INJ IVP PRN (21:30)
[2019-02-16 21:47] LABS: Amorphous Sediment,Urine Many /hpf; Appearance,Urine Turbid (Clear); Bilirubin,Urine Negative (Negative); Blood,Urine Small (Negative); Color,Urine Yellow; Glucose,Urine (UA) Trace (Negative); Hyaline Casts,Urine 43 /lpf (0-2); Ketones,Urine 1+ (Negative); Leukocyte Esterase,Urine Trace (Negative); Mucus,Urine Many /hpf; Nitrite,Urine Negative (Negative); PH, Urine 5.5 (5.0-8.0); Protein,Urine 1+ (Negative); RBC,Urine 3 /hpf (0-5); Specific Gravity,Urine 1.032 (1.001-1.035); Squamous Epithelial Cell,Urine 15 /hpf (0-4); Urobilinogen,Urine <2.0 mg/dL (<2.0)
[2019-02-16 21:57] LABS: Amphetamine Screen,Urine Not Detected (NotDetected); Barbiturate Screen,Urine Not Detected (NotDetected); Benzodiazepines Screen,Urine Detected (NotDetected); Cocaine Screen,Urine Not Detected (NotDetected); Methadone Screen, Urine Not Detected (NotDetected); Opiate Screen,Urine Detected (NotDetected); Oxycodone Screen, Urine Detected (NotDetected); Phencyclidine Screen,Urine Not Detected (NotDetected); Tricyclic Antidepressant,Urine Not Detected (NotDetected); Urn Cannabinoid Scrn Detected (NotDetected)
[2019-02-17] MEDS: HYDROmorphone 1 MG/ML 1 ML SYRINGE IVP PRN ×8 (01:10→21:10)
[2019-02-17] MEDS: ZOLPIDEM 10 MG TAB PO PRN (01:10)
[2019-02-17] MEDS: HEPARIN SODIUM,PORCINE 5,000 UNIT/ML 1 ML VIAL SQ SCH ×2 (07:28→21:03)
[2019-02-17] MEDS: CLOPIDOGREL 75 MG TAB PO SCH (07:28)
[2019-02-17] MEDS: ATORVASTATIN 80 MG TAB PO SCH (07:28)
[2019-02-17] MEDS: ASPIRIN 81 MG PO SCH (07:28)
[2019-02-17] MEDS: METOPROLOL TARTRATE 12.5 MG TAB PO SCH ×2 (07:28→21:03)
[2019-02-17] MEDS: SODIUM CHLORIDE 0.9% 1,000 ML IV SCH ×2 (07:29→17:18)
[2019-02-17 10:35] LABS: African American GFR (CKD) >90 (>60 ml/min/1.73 sqM); Anion Gap 11 mmol/L; Blood Urea Nitrogen 14 mg/dL (7-17); Calcium 9.6 mg/dL (8.4-10.2); Carbon Dioxide 24 mmol/L (22-30); Chloride 106 mmol/L (98-107); Glucose 125 mg/dL (74-99); Potassium 4.3 mmol/L (3.5-5.1); Sodium 141 mmol/L (137-145)
[2019-02-17 10:43] LABS: Basophils # (A) 0.1 k/uL (0-0.2); Basophils % (A) 0 %; Eosinophils % (A) 0 %; HCT 45.4 % (34.0-46.0); Lymphocytes # (A) 1.9 k/uL (1.0-4.8); Lymphocytes % (A) 11 %; MCH 28.1 pg (25.0-35.0); MCHC 30.8 g/dL (31.0-37.0); MCV 91.3 fL (80.0-100.0); Mean Platelet Volume 8.4; Monocytes # (A) 0.7 k/uL (0-1.0); Monocytes % (A) 4 %; Neutrophils # (A) 14.5 k/uL (1.3-7.7); Neutrophils % (A) 84 %; Platelet Count 323 k/uL (150-450); RBC 4.97 m/uL (3.80-5.40); RDW 14.7 % (11.5-15.5); WBC 17.4 k/uL (3.8-10.6)
[2019-02-17] MEDS: LIDOCAINE 5% PATCH TOPICAL SCH (11:46)
--- NOTE | 2019-02-17 16:02 | P.CNOR ---
History of Present Illness - [facility] Consult date: 02/17/19 Requesting physician: Antonia Swift Consult reason: low back pain (Intractable left-sided low back pain), other ( Left lower extremity radiculopathy with weakness due to pain) History of present illness: Patient is a pleasant 53-year-old female who is seen and examined at the bedside for further evaluation for intractable low back pain and left lower extremity radiculopathy status post fall. Patient states last week on 02/10/2019 she was working in her yard doing some shoveling when she fell landing on her left hip. She did not seek further treatment at that time. Over the next couple days she began to experience increased left-sided low back pain with pain radiating over the left lateral hip, towards the left groin, over the left anterior thigh. Her symptoms began debilitating. She presented to an urgent care facility on 02/15/2019. She came to [facility] on 02/16/[address] imaging of the left hip and lumbar spine were performed at that time which did not show evidence of acute fracture. Patient states prior to her fall she was not experiencing any significant lower extremity radiculopathy bilaterally. She's had significant difficulty with ambulation lifting left lower extremity since the fall. She was previously ambulating without assistance. She is known have chronic low back pain and follows with Dr. Urena in the outpatient setting who prescribes her narcotic pain medications. She does admit to recreational use of marijuana. She is known to have scoliosis and states she underwent a surgical procedure that her thoracolumbar spine at age 6 with placement of stimulator which was removed approximately 5 years later performed in [facility]. She also previously underwent a laminectomy at L4-5. During her admission also she was found to have a urinary tract infection and is currently being treated with Rocephin. During her admission she has been prescribed Valium, Toradol, Robaxin, and Dilaudid for pain control. History of cardiac stent placement 10/30/2018. She denies having a pacemaker. Past Medical History Past Medical History: Coronary Artery Disease (CAD), Chest Pain / Angina, Fibromyalgia, GERD/Reflux, Hyperlipidemia, Hypertension, Myocardial Infarction ([place]), Osteoarthritis (OA) Additional Past Medical History / Comment(s): Chronic abdominal pain/nausea, diverticulitis with partial colectomy, reynauld's syndrome, IBS. Last Myocardial Infarction Date:: October 2018 History of Any Multi-Drug Resistant Organisms: MRSA Year Discovered:: 2010 MDRO Source:: abdominal incision Past Surgical History: Back Surgery, Bowel Resection, Cholecystectomy, Heart Catheterization With Stent, Hernia Repair, Hysterectomy, Tonsillectomy Additional Past Surgical History / Comment(s): Back surgery twice for scoliosis, bowel resection for diverticulitis, hiatal hernia repair, total hysterectomy, R knee arthroscopy, bilateral carpal tunnel releases, R demoid ovarian cyst with surgery, anal fistula repair, rectal prolapse surgery, colonoscopy, EGD. Past Anesthesia/Blood Transfusion Reactions: No Reported Reaction Date of Last Stent Placement:: October 2018 Smoking Status: Current every day smoker - Past Family History Father Family Medical History: Coronary Artery Disease (CAD), Diabetes Mellitus, Thyroid Disorder Additional Family Medical History / Comment(s): Cancer of Colon, triple bypass at 49 yr old Mother Family Medical History: No Reported History Additional Family Medical History / Comment(s): Mother is healthy. Medications and Allergies Home Medications Medication Instructions Recorded Confirmed Type DULoxetine HCL [Cymbalta] 60 mg PO HS 11/03/18 02/16/19 History Esomeprazole Magnesium [NexIUM 20 mg PO HS 11/03/18 02/16/19 History 24Hr] Lidocaine 5% Patch [Lidoderm 5% 1 patch TOPICAL DAILY PRN 11/03/18 02/16/19 History Patch] Lisinopril [Zestril] 10 mg PO HS 11/03/18 02/16/19 History Methocarbamol [Robaxin-750] 750 mg PO DAILY PRN 11/03/18 02/16/19 History oxyCODONE HCL [oxyCODONE HCL (IR)] 20 mg PO Q4H PRN 11/03/18 02/16/19 History rOPINIRole HCL [Requip] 4 mg PO HS 11/03/18 02/16/19 History Aspirin EC [Ecotrin Low Dose] 81 mg PO DAILY #30 tablet. 11/05/18 02/16/19 Rx Atorvastatin [Lipitor] 80 mg PO DAILY #30 tab 11/05/18 02/16/19 Rx Clopidogrel [Plavix] 75 mg PO DAILY #30 tab 11/05/18 02/16/19 Rx Metoprolol Tartrate [Lopressor] 12.5 mg PO BID #603 tab 11/05/18 02/16/19 Rx Nitroglycerin Sl Tabs [Nitrostat] 0.4 mg SUBLINGUAL Q5M PRN tab 12/21/18 02/16/19 Rx Zolpidem [Ambien] 10 mg PO HS PRN 02/16/19 02/16/19 History Allergies Allergy/AdvReac Type Severity Reaction Status Date / Time cashew nut Allergy Swelling Verified 02/16/19 07:41 Physical Examination Physical exam: Patient is awake, alert, and oriented 3 Vital signs stable Good chest excursion with deep inspiration and expiration Examination of thoracic and lumbar spine reveals skin is intact with no abrasions, lacerations, or bruises; no erythema, purulence or signs of infection Evidence of a large well-healed incision along the midline of the thoracic spine and upper lumbar spine Evidence of a small well-healed incision over the left lower lumbar spine Dorsiflexion, plantarflexion, and extensor hallucis longus positive sustained on the right Lower extremity strength 5/5 on the right Significant difficulty with any active range of motion of the left lower extremity due to pain Patient currently using arms to hold left lower extremity thigh in flexion Significant difficulty with performing knee extension and hip flexion on the left No signs or symptoms of DVT; no calf pain No pain with palpation over the left lateral hip Neurovascularly intact Results Pertinent studies: CT of the lumbar spine taken on 02/16/2019: Scoliosis; L4-5 severe degenerative disc disease with associated vacuum phenomenon, endplate spondylosis and sclerosis some suspected laminectomy defect at L5 on the left; multilevel facet arthropathy resulting in foraminal encroachment at L4-5 and L5-S1; L3-4 moderate spinal canal stenosis suspected; overall alignment appears to be adequately maintained; no evidence of vertebral body compression fracture CT of the left hip taken on 02/16/2019: No evidence of fracture dislocation within the left hip; calcification present at the insertion of the gluteus tendons at the carotid sheath trochanter; marginal spurring with underlying osteoarthritic change - Labs Labs: Abnormal Lab Results - Last 24 Hours (Table) 02/16/19 02/16/19 02/16/19 Range/Units 18:27 21:15 21:15 WBC (3.8-10.6) k/uL MCHC (31.0-37.0) g/dL Neutrophils # (1.3-7.7) k/uL Glucose (74-99) mg/dL Creatine Kinase 258 H (30-135) U/L Urine Appearance Turbid H (Clear) Urine Protein 1+ H (Negative) Urine Glucose (UA) Trace H (Negative) Urine Ketones 1+ H (Negative) Urine Blood Small H (Negative) Ur Leukocyte Esterase Trace H (Negative) Ur Squamous Epith Cells 15 H (0-4) /hpf Amorphous Sediment Many H (None) /hpf Hyaline Casts 43 H (0-2) /lpf Urine Mucus Many H (None) /hpf Urine Opiates Screen Detected H (NotDetected) Ur Oxycodone Screen Detected H (NotDetected) U Benzodiazepines Scrn Detected H (NotDetected) U Marijuana (THC) Screen Detected H (NotDetected) 02/17/19 02/17/19 Range/Units 09:05 09:05 WBC 17.4 H (3.8-10.6) k/uL MCHC 30.8 L (31.0-37.0) g/dL Neutrophils # 14.5 H (1.3-7.7) k/uL Glucose 125 H (74-99) mg/dL Creatine Kinase (30-135) U/L Urine Appearance (Clear) Urine Protein (Negative) Urine Glucose (UA) (Negative) Urine Ketones (Negative) Urine Blood (Negative) Ur Leukocyte Esterase (Negative) Ur Squamous Epith Cells (0-4) /hpf Amorphous Sediment (None) /hpf Hyaline Casts (0-2) /lpf Urine Mucus (None) /hpf Urine Opiates Screen (NotDetected) Ur Oxycodone Screen (NotDetected) U Benzodiazepines Scrn (NotDetected) U Marijuana (THC) Screen (NotDetected) Microbiology - Last 24 Hours (Table) 02/16/19 21:15 Urine Culture - Preliminary Urine,Voided H & H 02/16/19 02/17/19 Range/Units 12:14 09:05 Hgb 15.6 14.0 (11.4-16.0) gm/dL Hct 47.5 H 45.4 (34.0-46.0) % Result Diagrams: 02/17/19 09:05 02/17/19 09:05 Assessment and Plan Assessment: Assessment: Intractable left-sided low back pain Left lower extremity radiculopathy Left hip pain Scoliosis Left lower extremity weakness Lumbar degenerative disc disease and facet spondylosis History of previous thoracolumbar surgery as a child History of L4-5 laminectomy as an adult L3-4 suspected spinal canal stenosis Status post fall Urinary tract infection History of narcotic use History of recreational marijuana use History of coronary artery disease, hypertension and hyperlipidemia History of cardiac stent placement on 10/30/2018 (1) Status post fall Current Visit: Yes Status: Acute Code(s): Z91.81 - HISTORY OF FALLING SNOMED Code(s): 620348190 (2) Lumbar back pain with radiculopathy affecting left lower extremity Current Visit: Yes Status: Acute Code(s): M54.16 - RADICULOPATHY, LUMBAR REGION SNOMED Code(s): 694870996 (3) Left hip pain Current Visit: Yes Status: Acute Code(s): M25.552 - PAIN IN LEFT HIP SNOMED Code(s): 53814511 (4) Weakness of left lower extremity Current Visit: Yes Status: Acute Code(s): R29.898 - OTH SYMPTOMS AND SIGNS INVOLVING THE MUSCULOSKELETAL SYSTEM SNOMED Code(s): 836263967 (5) Lumbar degenerative disc disease Current Visit: Yes Status: Acute Code(s): M51.36 - OTHER INTERVERTEBRAL DISC DEGENERATION, LUMBAR REGION SNOMED Code(s): 57752161 (6) Lumbar facet arthropathy Current Visit: Yes Status: Acute Code(s): M47.816 - SPONDYLOSIS W/O MYELOP ATHY OR RADICULOPATHY, LUMBAR REGION SNOMED Code(s): 859057217 (7) History of laminectomy Current Visit: Yes Status: Acute Code(s): Z98.890 - OTHER SPECIFIED POSTPROCEDURAL STATES SNOMED Code(s): 856334472 (8) Scoliosis Current Visit: Yes Status: Acute Code(s): M41.9 - SCOLIOSIS, UNSPECIFIED SNOMED Code(s): 501101218 (9) Marijuana use Current Visit: Yes Status: Acute Code(s): F12.90 - CANNABIS USE, UNSPECIFIED, UNCOMPLICATED SNOMED Code(s): 653611086 (10) Narcotic drug use Current Visit: Yes Status: Acute Code(s): F11.90 - OPIOID USE, UNSPECIFIED, UNCOMPLICATED SNOMED Code(s): 21295938 (11) History of coronary artery disease Current Visit: Yes Status: Acute Code(s): Z86.79 - PERSONAL HISTORY OF OTHER DISEASES OF THE CIRCULATORY SYSTEM SNOMED Code(s): 312232094 (12) History of hypertension Current Visit: Yes Status: Acute Code(s): Z86.79 - PERSONAL HISTORY OF OTHER DISEASES OF THE CIRCULATORY SYSTEM SNOMED Code(s): 916096940 (13) History of hyperlipidemia Current Visit: Yes Status: Acute Code(s): Z86.39 - PERSONAL HISTORY OF ENDO, NUTRITIONAL AND METABOLIC DISEASE SNOMED Code(s): 524018336 (14) History of heart artery stent Current Visit: Yes Status: Acute Code(s): Z95.5 - PRESENCE OF CORONARY ANGIOPLASTY IMPLANT AND GRAFT SNOMED Code(s): 951861659 (15) Urinary tract infection Current Visit: Yes Status: Acute Code(s): N39.0 - URINARY TRACT INFECTION, SITE NOT SPECIFIED SNOMED Code(s): 21050486 (16) Intractable back pain Current Visit: Yes Status: Acute Code(s): M54.9 - DORSALGIA, UNSPECIFIED SNOMED Code(s): 493879398 Plan: Plan: 1. After physical examination of the patient, further discussion with Dr. Sidney Heart, reviewing of imaging, and further discussion with the patient, we will currently plan to continue with conservative treatment. She is having significant left lower extremity radiculopathy with acute weakness due to pain following her recent fall. Her symptoms have been ongoing and worsening over the past week. CT imaging does not show evidence of fracture of the left hip or lumbar spine. She is experiencing intractable left-sided low back pain with pain radiating down the left lower extremity. She has difficulty lifting her left leg. She does have a history of multiple surgical interventions performed her thoracolumbar spine. She has a history of scoliosis. She has significant degenerative change in her lumbar spine as well. At this time we'll plan to order an MRI of the lumbar spine with and without contrast for further evaluation. Following the completion of the lumbar MRI we will review imaging and discuss possible treatment options. We are planning to exhaust all conservative treatment before discussing the possibility of surgical intervention. We will also plan for a consultation with pain management. 2. Patient will continue to be seen and examined by medicine for her other medical diagnoses including urinary tract infection Time with Patient: Greater than 30 (Including obtaining history, physical examination, reviewing of imaging, and dictation.)
[2019-02-17] MEDS: KETOROLAC 30 MG/ML 1 ML VIAL IVP PRN (17:18)
[2019-02-17] MEDS: LORazepam 2 MG/ML INJ IV PRN (17:24)
--- NOTE | 2019-02-17 17:52 | PN ---
PROGRESS NOTE DATE OF SERVICE: 02/17/2019. This 53-year-old woman who was admitted with severe hip pain and back pain is being closely monitored at this time. Orthopedics saw the patient and recommend MRI scan. The patient necessitated high-dose pain medication this time. The patient also had severe anxiety as well. The patient also had multiple surgeries for scoliosis as well. The possibility of radiculopathy is being noted including either sciatica or femoral. Pain management has been consulted. PAST MEDICAL HISTORY: Reviewed. REVIEW OF SYSTEMS: CARDIOVASCULAR: No angina. RESPIRATORY: As mentioned earlier. GI no nausea or vomiting. no dysuria. MUSCULOSKELETAL: As mentioned earlier. CURRENT MEDICATIONS: Reviewed and include: 1. Tylenol 650 q.6 p.r.n. 2. Aspirin 81 mg. 3. Lipitor 80 mg. 4. Rocephin 1 g daily. 5. Valium. 6. Cymbalta 60 mg q.h.s. 7. Heparin 5000 subcu b.i.d. 8. Dilaudid 1 mg q.2 p.r.n. 9. Motrin 400 mg q.6 p.r.n. 10.Toradol 30 mg q.6h. 11.Lidoderm patch. 12.Zestril 10 mg p.o. q.h.s. 13.Ativan 1 mg IV q30 minutes. 14.Robaxin 750 mg p.o. daily. 15.Lopressor 12.5 mg b.i.d. 16.Narcan 0.2 q.2h IV q.2h. 17.Nitrostat 0.4 sublingual p.r.n. 18.OxyIR 20 mg p.o. q.4 p.r.n. 19.Protonix 40 mg p.o. q.h.s. 20.Requip 4 mg q.h.s. 21.Ambien 10 mg q.h.s. p.r.n. PHYSICAL EXAM: Patient is alert, oriented x3. Pulse is 80, blood pressure 130/63, respiration 18, temperature 98.7, pulse ox 98% on room air. HEENT: Conjunctivae normal. Oral mucosa moist. NECK is no jugular venous distention. No carotid bruit. No lymph node enlargement. CARDIOVASCULAR system: S1. S2. No S3, no S4. RESPIRATORY: Breath sounds diminished in the bases. Bilateral scattered rhonchi and crackles. ABDOMEN: Soft, obese, nontender. No mass palpable. LEGS: Movement of the left leg severely painful. The flexion-extension are painful also. SLR is also painful. NERVOUS SYSTEM: Higher functions as mentioned earlier. Moves all 4 limbs. No focal deficits. LYMPHATICS: No lymph nodes palpable in the neck, axillae or groin. SKIN: No ulcer, rash or bleeding. LABS: WBC is 17.2, hemoglobin is 14, sodium 140, potassium 4.3. UA noted. Drug screen is positive for opiates, oxycodone, benzodiazepines and THC. ASSESSMENT: 1. Fall and severe left hip pain, possibly contusion, rule out femoral or sciatic neuropathy, radiculopathy. 2. Increased WBC. 3. Severe degenerative joint disease. 4. Multiple back surgeries including scoliosis surgery. 5. Elevated calcium. 6. History of coronary artery disease/ stent. 7. History of fibromyalgia. 8. History of gastroesophageal reflux disease. 9. Hypertension. 10.Hyperlipidemia. 11.History of chronic pain syndrome. 12.Chronic abdominal pain and nausea. 13.History of diverticulitis. 14.History of Raynaud's phenomenon. 15.History of irritable bowel syndrome. 16.History of MRSA. 17.History of anxiety, depression. 18.Continued ongoing nicotine dependence. 19.History of THC occasionally. RECOMMENDATIONS AND DISCUSSION: In this 59-year-old woman who presented with multiple complex medical issues, we will monitor the patient closely. Continue the current medications, management and symptomatic treatment. Otherwise, at this time, I recommend continue with current medications, symptomatic treatment. Patient is on IV Dilaudid and as well as p.o. breakthrough pain medications. The patient also receiving significant dose of Toradol. I recommend Pain Management to evaluate the patient. Otherwise guarded prognosis because of multiple complex medical issues. MRI. See orders for details. Further recommendations to follow. MMODL / IJN: [id number] /
[2019-02-17] MEDS: LISINOPRIL 10 MG TAB PO SCH (21:03)
[2019-02-17] MEDS: DULoxetine HCL 60 MG CAPSULE.DR PO SCH (21:03)
[2019-02-17] MEDS: PANTOPRAZOLE 40 MG TABLET PO SCH (21:03)
[2019-02-17] MEDS: rOPINIRole HCL 4 MG TABLET PO SCH (21:09)
[2019-02-18] MEDS: HYDROmorphone 1 MG/ML 1 ML SYRINGE IVP PRN ×9 (00:14→23:47)
[2019-02-18] MEDS: SODIUM CHLORIDE 0.9% 1,000 ML IV SCH ×2 (06:00→14:20)
[2019-02-18] MEDS: KETOROLAC 30 MG/ML 1 ML VIAL IVP PRN ×3 (07:40→19:20)
[2019-02-18] MEDS: METOPROLOL TARTRATE 12.5 MG TAB PO SCH ×2 (07:41→19:25)
[2019-02-18] MEDS: ATORVASTATIN 80 MG TAB PO SCH (07:41)
[2019-02-18] MEDS: CLOPIDOGREL 75 MG TAB PO SCH (07:42)
[2019-02-18] MEDS: ASPIRIN 81 MG PO SCH (07:42)
[2019-02-18] MEDS: HEPARIN SODIUM,PORCINE 5,000 UNIT/ML 1 ML VIAL SQ SCH ×2 (07:42→19:28)
[2019-02-18] MEDS: LORazepam 2 MG/ML INJ IV PRN (07:47)
[2019-02-18 09:14] LABS: Basophils % (A) 0 %; Eosinophils % (A) 0 %; HCT 38.8 % (34.0-46.0); HGB 12.4 gm/dL (11.4-16.0); Lymphocytes # (A) 2.1 k/uL (1.0-4.8); Lymphocytes % (A) 16 %; MCH 28.7 pg (25.0-35.0); MCV 89.7 fL (80.0-100.0); Mean Platelet Volume 7.9; Monocytes # (A) 0.6 k/uL (0-1.0); Monocytes % (A) 5 %; Neutrophils % (A) 77 %; Platelet Count 278 k/uL (150-450); RBC 4.32 m/uL (3.80-5.40); RDW 14.1 % (11.5-15.5); WBC 12.9 k/uL (3.8-10.6)
--- NOTE | 2019-02-18 09:21 | P.CNOR ---
History of Present Illness - [facility] Consult date: 02/18/19 Consult reason: other (Left lower extremity pain) History of present illness: Patient is seen and examined today at bedside. She was seen and examined yesterday with our physician corporate administrative assistant I reviewed the imaging with him at length over the past 2 days. The patient has been having significant pain in her left lower extremity since Friday. She has history of spine issues but she says that none of them have been like this. The pain is primarily in her left thigh whenever she tries to straighten out her hip. She has to hold her hip in a flexed position to keep it under control. Whenever she tries a straight leg the pain is very severe sharp and stabbing at her left thigh. She says the pain starts up in her back and travels down down around her groin and then toward her thigh. It is isolated to the left side. She says she's not feel weak. She is not having numbness tingling in her foot and ankle or toes. She denied pains in her right leg. She denies any chest pain shortness of breath. She denies any bowel pain. Review of Systems As per HPI Past Medical History Past Medical History: Coronary Artery Disease (CAD), Chest Pain / Angina, Fibromyalgia, GERD/Reflux, Hyperlipidemia, Hypertension, Myocardial Infarction ([place]), Osteoarthritis (OA) Additional Past Medical History / Comment(s): Chronic abdominal pain/nausea, diverticulitis with partial colectomy, reynauld's syndrome, IBS. Last Myocardial Infarction Date:: October 2018 History of Any Multi-Drug Resistant Organisms: MRSA Year Discovered:: 2010 MDRO Source:: abdominal incision Past Surgical History: Back Surgery, Bowel Resection, Cholecystectomy, Heart Catheterization With Stent, Hernia Repair, Hysterectomy, Tonsillectomy Additional Past Surgical History / Comment(s): Back surgery twice for scoliosis, bowel resection for diverticulitis, hiatal hernia repair, total hysterectomy, R knee arthroscopy, bilateral carpal tunnel releases, R demoid ovarian cyst with surgery, anal fistula repair, rectal prolapse surgery, colonoscopy, EGD. Past Anesthesia/Blood Transfusion Reactions: No Reported Reaction Date of Last Stent Placement:: October 2018 Smoking Status: Current every day smoker - Past Family History Father Family Medical History: Coronary Artery Disease (CAD), Diabetes Mellitus, Thyroid Disorder Additional Family Medical History / Comment(s): Cancer of Colon, triple bypass at 49 yr old Mother Family Medical History: No Reported History Additional Family Medical History / Comment(s): Mother is healthy. Medications and Allergies Home Medications Medication Instructions Recorded Confirmed Type DULoxetine HCL [Cymbalta] 60 mg PO HS 11/03/18 02/16/19 History Esomeprazole Magnesium [NexIUM 20 mg PO HS 11/03/18 02/16/19 History 24Hr] Lidocaine 5% Patch [Lidoderm 5% 1 patch TOPICAL DAILY PRN 11/03/18 02/16/19 History Patch] Lisinopril [Zestril] 10 mg PO HS 11/03/18 02/16/19 History Methocarbamol [Robaxin-750] 750 mg PO DAILY PRN 11/03/18 02/16/19 History oxyCODONE HCL [oxyCODONE HCL (IR)] 20 mg PO Q4H PRN 11/03/18 02/16/19 History rOPINIRole HCL [Requip] 4 mg PO HS 11/03/18 02/16/19 History Aspirin EC [Ecotrin Low Dose] 81 mg PO DAILY #30 tablet.dr 11/05/18 02/16/19 Rx Atorvastatin [Lipitor] 80 mg PO DAILY #30 tab 11/05/18 02/16/19 Rx Clopidogrel [Plavix] 75 mg PO DAILY #30 tab 11/05/18 02/16/19 Rx Metoprolol Tartrate [Lopressor] 12.5 mg PO BID #603 tab 11/05/18 02/16/19 Rx Nitroglycerin Sl Tabs [Nitrostat] 0.4 mg SUBLINGUAL Q5M PRN tab 12/21/18 02/16/19 Rx Zolpidem [Ambien] 10 mg PO HS PRN 02/16/19 02/16/19 History Allergies Allergy/AdvReac Type Severity Reaction Status Date / Time cashew nut Allergy Swelling Verified 02/16/19 07:41 Physical Examination Osteopathic Statement: *. No significant issues noted on an osteopathic structural exam other than those noted in the History and Physical/Consult. - L Spine: dermatomal strength & reflexes left Strength: hip flexion: 5/5 (She has significant pain in her left thigh with any sort of attempts of extension. She has to hold her leg at least 60 flexed at her hip. She has good extension in her knees and ankles put and toes. When she tries to extend toward a neutral position at her left thigh. He has significant pain. She is no pain with internal/external rotation of her hip. Her right lower shoulder is full active and passive range motion. Her back has well-healed incisions without any erythema. Abdomen soft nontender. Chest has good excursion deep inspection expiration.) Results - Labs Labs: Abnormal Lab Results - Last 24 Hours (Table) 02/17/19 02/17/19 Range/Units 09:05 09:05 WBC 17.4 H (3.8-10.6) k/uL MCHC 30.8 L (31.0-37.0) g/dL Neutrophils # 14.5 H (1.3-7.7) k/uL Glucose 125 H (74-99) mg/dL Microbiology - Last 24 Hours (Table) 02/16/19 21:15 Urine Culture - Final Urine,Voided 02/16/19 18:27 Blood Culture - Preliminary Blood No Growth after 24 hours H & H 02/16/19 02/17/19 Range/Units 12:14 09:05 Hgb 15.6 14.0 (11.4-16.0) gm/dL Hct 47.5 H 45.4 (34.0-46.0) % Result Diagrams: 02/17/19 09:05 02/17/19 09:05 - Diagnostic results CT Scan - lumbar: report reviewed, image reviewed (The computed tomography scan of her spine is reviewed. She's had multiple surgeries to her thoracic spine when she was young with scoliosis surgery. She is also had decompression at what appears to be L4 5 and L5-S1. There is severe disc degeneration at L4 5. There is post surgical changes L4 5. I do not see any obvious paraspinal repair. The psoas is reviewed and I do not see any obvious air collection or fluid collection within the psoas to indicate abscess. This difficult for me to assess on computed tomography scan but is not mentioned in the report.) Assessment and Plan Assessment: Left lower extremity pain at her left thigh Low back pain History of multiple surgeries for her spine for scoliosis and her thoracic or lumbar spine History of decompression lumbar spine outside institution at L4 5 Inability to extend left hip inability to ambulate and mobilize Plan: Left lower extremity pain at her left thigh Low back pain History of multiple surgeries for her spine for scoliosis and her thoracic or lumbar spine History of decompression lumbar spine outside institution at L4 5 Inability to extend left hip inability to ambulate and mobilize Is difficult to pinpoint the source the patient's symptoms. She is having severe left lower extremity pain she was not able to obtain an MRI cut she was unable to lay flat. She is being treated for UTI but her symptoms are not resolved with antibiotics. She is not having neurologic loss at this point we can see. She seems to have neurologic pain over her left thigh extending from her back. She has had prior surgeries at her lumbar spine but did not have similar symptoms. She does have significant general changes at L4 5 and L5-S1 and L3 4 and may have some benefit with interventional pain management. She can have exacerbation of some sciatica type pain and IV steroid may be of benefit for her as well and we will order this for her. I reviewed the computed tomography scan and I do not see any evidence of psoas abscess or fluid collection within the psoas. It is not mentioned in the report. I think it'll be okay for her to attempt interventional pain management and they have been on consult. She has history of significant medications for her chronic low back pain and I would defer pain management to dip painter. We do not have plans for surgical intervention at this point. Hopefully she will be able to relieve some of her symptoms of that she can lay flat for an MRI and waking gain further information.
[2019-02-18 09:26] LABS: African American GFR (CKD) >90 (>60 ml/min/1.73 sqM); Anion Gap 8 mmol/L; Blood Urea Nitrogen 13 mg/dL (7-17); Calcium 9.1 mg/dL (8.4-10.2); Carbon Dioxide 24 mmol/L (22-30); Chloride 107 mmol/L (98-107); Glucose 126 mg/dL (74-99); Potassium 3.9 mmol/L (3.5-5.1); Sodium 139 mmol/L (137-145)
[2019-02-18] MEDS: methylPREDNISolone SOD SUCCI 125 MG/2 ML VIAL IV SCH ×2 (09:47→19:24)
[2019-02-18] MEDS: LIDOCAINE 5% PATCH TOPICAL SCH (10:52)
[2019-02-18] MEDS ORDERED: IV FLUID CONTINUATION 1,000 ML IV ONE (11:18)
--- NOTE | 2019-02-18 11:57 | P.PAINCN ---
History of Present Illness - Reason for Consult Consult date: 02/18/19 - History of Present Illness This is 53 years old female, who was admitted to [facility] because of severe intractable pain, and in no back area with radiation to the left lower extremity, started after she fell on her back, patient reported that she had chronic pain syndrome and she had multiple surgical interventions on her lumbar spine, which failed to improve her pain, patient was managed as an outpa tient with pain medication OxyIR 20 mg every 4 hours, and prescription medication was given by her primary care doctor Romel , patient reports currently that the pain is constant and increases with any movement, she is not able to ambulate because of intensity of the pain, patient currently on multiple pain medication which is not providing her with any relief, she is currently on Dilaudid IV 1 mg every 2 hours, when necessary and also she is on OxyIR 20 mg every 4 hours, Robaxin 750 daily when necessary and Toradol 30 mg every 6 hours, patient currently on Plavix, because she had cardiac stent placement Past Medical History Past Medical History: Coronary Artery Disease (CAD), Chest Pain / Angina, Fibromyalgia, GERD/Reflux, Hyperlipidemia, Hypertension, Myocardial Infarction ([place]), Osteoarthritis (OA) Additional Past Medical History / Comment(s): Chronic abdominal pain/nausea, diverticulitis with partial colectomy, reynauld's syndrome, IBS. Last Myocardial Infarction Date:: October 2018 History of Any Multi-Drug Resistant Organisms: MRSA Year Discovered:: 2010 MDRO Source:: abdominal incision Past Surgical History: Back Surgery, Bowel Resection, Cholecystectomy, Heart Catheterization With Stent, Hernia Repair, Hysterectomy, Tonsillectomy Additional Past Surgical History / Comment(s): Back surgery twice for scoliosis, bowel resection for diverticulitis, hiatal hernia repair, total hysterectomy, R knee arthroscopy, bilateral carpal tunnel releases, R demoid ovarian cyst with surgery, anal fistula repair, rectal prolapse surgery, colonoscopy, EGD. Past Anesthesia/Blood Transfusion Reactions: No Reported Reaction Date of Last Stent Placement:: October 2018 Smoking Status: Current every day smoker - Past Family History Father Family Medical History: Coronary Artery Disease (CAD), Diabetes Mellitus, Thyroid Disorder Additional Family Medical History / Comment(s): Cancer of Colon, triple bypass at 49 yr old Mother Family Medical History: No Reported History Additional Family Medical History / Comment(s): Mother is healthy. Medications and Allergies Home Medications Medication Instructions Recorded Confirmed Type DULoxetine HCL [Cymbalta] 60 mg PO HS 11/03/18 02/16/19 History Esomeprazole Magnesium [NexIUM 20 mg PO HS 11/03/18 02/16/19 History 24Hr] Lidocaine 5% Patch [Lidoderm 5% 1 patch TOPICAL DAILY PRN 11/03/18 02/16/19 History Patch] Lisinopril [Zestril] 10 mg PO HS 11/03/18 02/16/19 History Methocarbamol [Robaxin-750] 750 mg PO DAILY PRN 11/03/18 02/16/19 History oxyCODONE HCL [oxyCODONE HCL (IR)] 20 mg PO Q4H PRN 11/03/18 02/16/19 History rOPINIRole HCL [Requip] 4 mg PO HS 11/03/18 02/16/19 History Aspirin EC [Ecotrin Low Dose] 81 mg PO DAILY #30 tablet. 11/05/18 02/16/19 Rx Atorvastatin [Lipitor] 80 mg PO DAILY #30 tab 11/05/18 02/16/19 Rx Clopidogrel [Plavix] 75 mg PO DAILY #30 tab 11/05/18 02/16/19 Rx Metoprolol Tartrate [Lopressor] 12.5 mg PO BID #603 tab 11/05/18 02/16/19 Rx Nitroglycerin Sl Tabs [Nitrostat] 0.4 mg SUBLINGUAL Q5M PRN tab 12/21/18 02/16/19 Rx Zolpidem [Ambien] 10 mg PO HS PRN 02/16/19 02/16/19 History Allergies Allergy/AdvReac Type Severity Reaction Status Date / Time cashew nut Allergy Swelling Verified 02/16/19 07:41 Physical Exam Vitals: Vital Signs Temp Pulse Resp BP Pulse Ox 02/18/19 04:35 98.1 F 82 20 127/83 94 L 02/18/19 00:00 20 02/17/19 21:15 98.1 F 79 20 144/85 98 02/17/19 12:55 97.9 F 80 18 136/86 99 Intake and Output 02/17/19 02/18/19 02/18/19 22:59 06:59 14:59 Intake Total 600 100 Balance 600 100 Intake: Oral 600 100 Other: Voiding Method Toilet # Voids 3 2 # Bowel Movements 0 Physical Examinations : -Constitutiona : Cooperative , alert oriented 3 , complaining of severe low back pain . -HEENT : nech ; supple , no Lymphadenopathy , normal thyroid size . eyes : no ptosis , no icterus, no photophobia . ENT : normal of hearing , normal oropharynx , no Thrush . - Respiratory : Chest clear to auscultations Bilaterally , no wheezing , no Rhonchi . - Cardiovascula : regular rate and rhythem , S1 , S2 , no S3 , no S4. - Gastrointestina : abdomen soft no tenderness , bowel sounds , no organomegally . - Genitourinary : Defferred . - neurologic : Cranial nerve II to XII intact , no focal neurological deffecit . -psychatric : alert , oriented X 3 , appropriate affect , intact judgment and insight . -Lymphatic : no Lymphadenopathy . - musculoskeltal : . Lumber spine moter stegnth lower extremities ,thigh and legs 5/5 Right side , 3-4/5 Left side deep tendon reflexes : normal Knee Jerk , normal ankle Jerk positive lumber facet Loading Test Range of motion of the lumbar spine Flexion 30 degrees, extension 10 degrees strait leg raising test , positive at 15 degree on the left side, and is negative on the right side Fabere test negative RT and positive LT . Sever tenderness over the Sacroiliac joint on the Left sides Gaenslen test positive on the left side Seated flexion test positive on the left side Results CBC & Chem 7: 02/18/19 08:51 02/18/19 08:51 Labs: Abnormal Lab Results - Last 24 Hours (Table) 02/17/19 02/18/19 02/18/19 Range/Units 09:05 08:51 08:51 WBC 17.4 H 12.9 H (3.8-10.6) k/uL MCHC 30.8 L (31.0-37.0) g/dL Neutrophils # 14.5 H 10.0 H (1.3-7.7) k/uL Glucose 126 H (74-99) mg/dL Microbiology - Last 24 Hours (Table) 02/16/19 21:15 Urine Culture - Final Urine,Voided 02/16/19 18:27 Blood Culture - Preliminary Blood No Growth after 24 hours Comments: Computed tomography scan of the lumbar spine 02/16/2019 L4 5 severe lumbar degenerative disc disease, lumbar spondylosis and multilevel lumbar facet arthropathy, previous laminectomy, and moderate spinal stenosis Assessment and Plan Plan: Assessment AND PLAN= postlaminectomy pain syndrome lumbar area. Lumbar radiculopathy. Lumbar spinal stenosis. Left sacroiliitis. Lumbar spondylosis with lumbar facet arthropathy without myelopathy Patient currently on Plavix secondary to coronary artery disease, she is not a candidate to have, and epidural steroid injection unless we hold the Plavix for one week, the best option at this point is to the left side sacroiliac joint steroid injection under fluoroscopy guidance which could help her low back pain significantly, and we can do is left-sided sacroiliac joint steroid injection without the need to hold Plavix, patient can follow up in the pain clinic after discharge and we can evaluate them that his need to repeat the left sacroiliac joint, versus scheduling her to do caudal epidural lysis of adhesions. Also patient could benefit from changing to Robaxin dose to 3 times a day, currently once a day when necessary., Recommend discontinue Motrin Time with Patient: Greater than 30 PQRS Measure Charge Sheet PQRS Narrative: Smoking Status Current every day smoker Blood Pressure [Right Arm 127/83 Supine] Blood Pressure 149/77 Pain Intensity [Left Thigh] 10 Pain Intensity [Back] 10 Pain Intensity [Left Hip] 10 Pain Intensity 9 Pain Scale Used Numeric (1 - 10) Scale Used Numeric (1 - 10) Home Medications: Ambulatory Orders DULoxetine HCL [Cymbalta] 60 mg PO HS 11/03/18 Esomeprazole Magnesium [NexIUM 24Hr] 20 mg PO HS 11/03/18 Lidocaine 5% Patch [Lidoderm 5% Patch] 1 patch TOPICAL DAILY PRN 11/03/18 Lisinopril [Zestril] 10 mg PO HS 11/03/18 Methocarbamol [Robaxin-750] 750 mg PO DAILY PRN 11/03/18 oxyCODONE HCL [oxyCODONE HCL (IR)] 20 mg PO Q4H PRN 11/03/18 rOPINIRole HCL [Requip] 4 mg PO HS 11/03/18 Aspirin EC [Ecotrin Low Dose] 81 mg PO DAILY #30 tablet. 11/05/18 Atorvastatin [Lipitor] 80 mg PO DAILY #30 tab 11/05/18 Clopidogrel [Plavix] 75 mg PO DAILY #30 tab 11/05/18 Metoprolol Tartrate [Lopressor] 12.5 mg PO BID #603 tab 11/05/18 Nitroglycerin Sl Tabs [Nitrostat] 0.4 mg SUBLINGUAL Q5M PRN tab 12/21/18 Zolpidem [Ambien] 10 mg PO HS PRN 02/16/19
--- NOTE | 2019-02-18 11:59 | P.PCN ---
Date of Procedure: 02/18/19 Procedure(s) Performed: Procedure= left sacral iliac joints steroid injection under fluoroscopy joanne patino Preoperative diagnosis= 1-left sacroiliitis 2-lumbar postlaminectomy pain syndrome 3-lumbar spondylosis with lumbar facet arthropathy Postoperative diagnosis= same as diagnoses Complication = none Condition= stable Anesthesia= local infiltration with lidocaine 1% 3 mL Indication for the procedure= patient complaining of low back pain , examination was positive for severe tenderness over the sacroiliac joints bilaterally and patient diagnosed with sacroiliitis, for this reason he/ she was good candidate for sacroiliac joint steroid injection. Description of the procedure= procedure risk and benefits discussed with the patient, including but not limited, risk of infection and bleeding, and ALLERGIC reaction to the medication and not complete pain relief and patient agreed with the preceding patient taken to the operating room, placed in prone position or standard monitors applied to the patient then after induction of anesthesia back prepped with chlorhexidine 3 times , Then under strict sterile technique, I did the left sacroiliac joint the which was identified under fluoroscopy guidance been local infiltration of the skin and subcu interstitial with lidocaine 1% then 25-gauge Quincke Needle advanced slowly under fluoroscopy and placed in the left sacroiliac joint needle placement confirmed with AP and oblique and lateral view and after appropriate needle placement confirmed and after negative aspiration, or heme , then Ropivacaine 0.5% 5 mL, and 40 mg of Depo-Medrol mixed together and injected in the left sacroiliac joint after negative aspiration patient tolerated the procedure well without any complication.
--- NOTE | 2019-02-18 12:50 | FL ---
EXAMINATION TYPE: FL guided pain mgmt statistic DATE OF EXAM: 02/18/2019 HISTORY: Flouroscopy time 28 seconds of fluoroscopy provided. IMPRESSION: 1. Fluoroscopy time.
[2019-02-18] MEDS: CYCLOBENZAPRINE 10 MG TAB PO SCH ×2 (14:20→23:00)
[2019-02-18] MEDS ORDERED: METHOCARBAMOL 750 MG TAB PO SCH (16:00)
[2019-02-18] MEDS: PANTOPRAZOLE 40 MG TABLET PO SCH (19:25)
[2019-02-18] MEDS: DULoxetine HCL 60 MG CAPSULE.DR PO SCH (19:26)
[2019-02-18] MEDS: LISINOPRIL 10 MG TAB PO SCH (19:28)
[2019-02-18] MEDS: rOPINIRole HCL 4 MG TABLET PO SCH (19:30)
[2019-02-18] MEDS ORDERED: NAPROXEN 250 MG TAB PO STA (21:53)
--- NOTE | 2019-02-18 21:55 | P.PN ---
Progress Note - Text Progress Note Date: 02/18/19 Presenting complaint: Pain in the left leg Interval history: This patient with spinal surgery as a child presented with acute severe pain in the left hip area. Seen by Dr. ga from orthopedics. Also seen by Dr. Katarzyna murillo pain management. Patient's pain is flared up about 4 days prior to coming in. Today-patient underwent steroid injection today. Also put on baclofen. Some relief in pain. Tolerating a diet. No trouble with her bowel or urine. I did order an MRI to be done today. But I was called later that patient because of pain unable to do so. Patient still has significant pain in the left thigh left hip area. Not able to walk. Review of systems: Was done for constitutional, cardiovascular, GI, pulmonary. Musculoskeletal and neurological relevant finding as above Current medications reviewed that included: IV ceftriaxone, Flexeril 10 mg 3 times a day, Cymbalta, IV Dilaudid when necessary, Toradol every 6 when necessary IV Solu-Medrol, oxycodone saline,. On examination: VITAL SIGNS: 96.163, is 16, 150 was 92, 96% GENERAL APPEARANCE: Average build. Lying in bed, uncomfortable. HEENT: Normal external appearance of nose and ear. Oral cavity normal EYES: Pupils equal. Conjunctiva normal. NECK: JVD not raised. Mass not palpable. RESPIRATORY: Respiratory effort normal. Lungs clear to auscultation. CARDIOVASCULAR: First and second sounds normal. No edema. ABDOMEN: Soft. Liver and spleen not palpable. No tenderness. No mass palpable. PSYCHIATRY: Alert and oriented x3. Mood and affect normal. Musculoskeletal/neurological: Not able to use straighten now the left leg Assessment: -Acute on chronic severe pain in the left thigh and hip area from severe radiculopathy/Scitica. -L3 to L5 disc herniation with lumbar stenosis and severe arthritis -Obesity BMI 34.0 -Acute gait dysfunction from above -Coronary artery disease with stent -Chronic fibromyalgia -GERD -Hyperlipidemia -Essential hypertension -Do not syndrome -Irritable bowel syndrome -Chronic nicotine dependence patient cigarette smoker Plan: Will follow with pain management team and with orthopedics. Patient was unable to tolerate the MRI today because of pain. We'll put the patient on scheduled NSAIDs. Care was discussed with the patient. She does feel better today compared to her presentation.
[2019-02-18] MEDS: ZOLPIDEM 10 MG TAB PO PRN (23:53)
[2019-02-19] MEDS: SODIUM CHLORIDE 0.9% 1,000 ML IV SCH ×2 (02:00→10:01)
[2019-02-19] MEDS: KETOROLAC 30 MG/ML 1 ML VIAL IVP PRN ×3 (03:56→19:18)
[2019-02-19] MEDS: HYDROmorphone 1 MG/ML 1 ML SYRINGE IVP PRN ×7 (05:29→23:30)
[2019-02-19] MEDS: HEPARIN SODIUM,PORCINE 5,000 UNIT/ML 1 ML VIAL SQ SCH ×2 (07:30→20:17)
[2019-02-19] MEDS: ASPIRIN 81 MG PO SCH (07:30)
[2019-02-19] MEDS: NAPROXEN 250 MG TAB PO SCH ×2 (07:30→20:18)
[2019-02-19] MEDS: CYCLOBENZAPRINE 10 MG TAB PO SCH ×3 (07:30→20:18)
[2019-02-19] MEDS: ATORVASTATIN 80 MG TAB PO SCH (07:30)
[2019-02-19] MEDS: METOPROLOL TARTRATE 12.5 MG TAB PO SCH ×2 (07:31→20:17)
[2019-02-19] MEDS: rOPINIRole HCL 4 MG TABLET PO SCH (07:32)
[2019-02-19] MEDS: CLOPIDOGREL 75 MG TAB PO SCH (07:32)
[2019-02-19] MEDS: methylPREDNISolone SOD SUCCI 125 MG/2 ML VIAL IV SCH ×2 (07:32→20:16)
[2019-02-19 08:04] LABS: Basophils % (A) 0 %; Eosinophils % (A) 0 %; HCT 37.8 % (34.0-46.0); HGB 12.2 gm/dL (11.4-16.0); Lymphocytes # (A) 1.2 k/uL (1.0-4.8); Lymphocytes % (A) 9 %; MCH 28.7 pg (25.0-35.0); MCHC 32.1 g/dL (31.0-37.0); MCV 89.4 fL (80.0-100.0); Mean Platelet Volume 7.9; Monocytes # (A) 0.7 k/uL (0-1.0); Monocytes % (A) 5 %; Neutrophils # (A) 11.8 k/uL (1.3-7.7); Neutrophils % (A) 85 %; Platelet Count 308 k/uL (150-450); RBC 4.23 m/uL (3.80-5.40); RDW 14.1 % (11.5-15.5)
[2019-02-19 08:20] LABS: African American GFR (CKD) >90 (>60 ml/min/1.73 sqM); Anion Gap 7 mmol/L; Blood Urea Nitrogen 19 mg/dL (7-17); Calcium 9.5 mg/dL (8.4-10.2); Carbon Dioxide 26 mmol/L (22-30); Chloride 108 mmol/L (98-107); Glucose 131 mg/dL (74-99); Potassium 4.7 mmol/L (3.5-5.1); Sodium 141 mmol/L (137-145)
[2019-02-19] MEDS ORDERED: LORazepam 2 MG/ML INJ IV STA (10:21)
[2019-02-19] MEDS: LIDOCAINE 5% PATCH TOPICAL SCH (12:33)
[2019-02-19] MEDS: DIAZEPAM 5 MG/ML 2 ML INJ IVP PRN (13:41)
[2019-02-19] MEDS: LISINOPRIL 10 MG TAB PO SCH (20:17)
[2019-02-19] MEDS: DULoxetine HCL 60 MG CAPSULE.DR PO SCH (20:17)
[2019-02-19] MEDS: PANTOPRAZOLE 40 MG TABLET PO SCH (20:18)
--- NOTE | 2019-02-19 22:32 | P.PN ---
Progress Note - Text Progress Note Date: 02/19/19 Presenting complaint: Pain in the left leg Interval history: This patient with spinal surgery as a child presented with acute severe pain in the left hip area. Seen by Dr. ga from orthopedics. Also seen by Dr. Katarzyna murillo pain management. Patient's pain is flared up about 4 days prior to coming in. Today-pain is better controlled. Laying in bed. Patient unable to do the MRI yesterday. Did tolerate her diet. Had a bowel movement.. Review of systems: Was done for constitutional, cardiovascular, GI, pulmonary. Musculoskeletal and neurological relevant finding as above Current medications reviewed that included: IV ceftriaxone, Flexeril 10 mg 3 times a day, Cymbalta, IV Dilaudid when necessary, Toradol every 6 when necessary IV Solu-Medrol, oxycodone saline,. On examination: VITAL SIGNS: 97.7, 91, 18, 137-76, 94% room air GENERAL APPEARANCE: Sitting at the edge of the bed. Looking for more comfortable today. HEENT: Normal external appearance of nose and ear. Oral cavity normal EYES: Pupils equal. Conjunctiva normal. NECK: JVD not raised. Mass not palpable. RESPIRATORY: Respiratory effort normal. Lungs clear to auscultation. CARDIOVASCULAR: First and second sounds normal. No edema. ABDOMEN: Soft. Liver and spleen not palpable. No tenderness. No mass palpable. PSYCHIATRY: Alert and oriented x3. Mood and affect normal. Musculoskeletal/neurological: Able to stretch the leg a bit more. Investigations: White count 14, hemoglobin 12.2, potassium 4.7 Assessment: -Acute on chronic severe pain in the left thigh and hip area from severe radiculopathy/Scitica., Clinically improving -L3 to L5 disc herniation with lumbar stenosis and severe arthritis -Obesity BMI 34.0 -Acute gait dysfunction from above -Coronary artery disease with stent -Chronic fibromyalgia -GERD -Hyperlipidemia -Essential hypertension -Irritable bowel syndrome -Chronic nicotine dependence patient cigarette smoker Plan: This morning had a lengthy talk with the patient did tell her to try to see the MRI can be done. And we'll give her some Ativan before that. I was called later in the afternoon that patient unable to do the same. I spoke at a very longer to the patient about the multiple pain medications that some of these only have a central affect and do not cause anything different locally. Patient understands the same. Patient encouraged out of bed and sitting up in a chair.
[2019-02-20] MEDS: HYDROmorphone 1 MG/ML 1 ML SYRINGE IVP PRN (03:55)
[2019-02-20] MEDS: SODIUM CHLORIDE 0.9% 1,000 ML IV SCH (04:50)
[2019-02-20 06:33] VITALS: BP 147/84; PULSE 77; RESP 20; TEMP 97.7
[2019-02-20] MEDS: ASPIRIN 81 MG PO SCH (08:08)
[2019-02-20] MEDS: HEPARIN SODIUM,PORCINE 5,000 UNIT/ML 1 ML VIAL SQ SCH ×2 (08:08→08:11)
[2019-02-20] MEDS: NAPROXEN 250 MG TAB PO SCH (08:08)
[2019-02-20] MEDS: methylPREDNISolone SOD SUCCI 125 MG/2 ML VIAL IV SCH (08:08)
[2019-02-20] MEDS: ATORVASTATIN 80 MG TAB PO SCH (08:08)
[2019-02-20] MEDS: METOPROLOL TARTRATE 12.5 MG TAB PO SCH (08:08)
[2019-02-20] MEDS: CLOPIDOGREL 75 MG TAB PO SCH (08:09)
[2019-02-20] MEDS: CYCLOBENZAPRINE 10 MG TAB PO SCH (08:09)
[2019-02-20 09:35] LABS: African American GFR (CKD) >90 (>60 ml/min/1.73 sqM); Anion Gap 8 mmol/L; Blood Urea Nitrogen 21 mg/dL (7-17); Calcium 9.4 mg/dL (8.4-10.2); Carbon Dioxide 27 mmol/L (22-30); Chloride 106 mmol/L (98-107); Glucose 197 mg/dL (74-99); Potassium 4.5 mmol/L (3.5-5.1); Sodium 141 mmol/L (137-145)
[2019-02-20 09:46] LABS: Basophils % (A) 0 %; Eosinophils % (A) 0 %; HCT 38.2 % (34.0-46.0); Lymphocytes % (A) 7 %; MCH 28.7 pg (25.0-35.0); MCHC 31.4 g/dL (31.0-37.0); MCV 91.2 fL (80.0-100.0); Mean Platelet Volume 8.3; Monocytes # (A) 0.5 k/uL (0-1.0); Monocytes % (A) 3 %; Neutrophils # (A) 13.7 k/uL (1.3-7.7); Neutrophils % (A) 89 %; Platelet Count 304 k/uL (150-450); RBC 4.19 m/uL (3.80-5.40); RDW 14.9 % (11.5-15.5); WBC 15.4 k/uL (3.8-10.6)
--- NOTE | 2019-02-20 10:24 | P.PN ---
Progress Note - Text Progress Note Date: 02/20/19 Patient is seen and examined today at bedside. She says she is having good relief but still having some symptoms at her left lower extremity. She has been on IV steroids over the past 2 days and underwent an epidural steroid injection with interventional pain management yesterday. She feels that these have made good benefit for her and that she is able to manage her pain significantly better. She has been mobile around her room. She's been able to almost lay completely flat. She denies weakness but is still having difficulty with her left leg in extension. Pain is being controlled with medication. She has still use some of the IV medication last night but feels that she will able to transition oral medication today Physical Exam Afebrile with stable vital signs Abdomen is soft nontender. Chest has good excursion deep and space expiration Extremities have not had neurologic change . She has sustained dorsal flexion plantar flexion and EHL intact. She still has significant pain with extension at her hip. She is not able to reach neutral position at her left hip Calves and thighs were soft nontender without evidence of DVT. Assessment/Plan Severe left lower extremity pain with radiculopathy Improvement with IV steroid and epidural steroid injection provided by interventional pain management yesterday History of laminectomy decompression L5-S1 Radiculopathy over her femoral nerve with pain on extension and possible L4 5 stenosis and herniation History of spinal surgery for scoliosis as a child We will continue to increase the patient's mobilization with therapy. She will continue pain control with oral medications. I think that she can transition to oral steroid rather than the IV steroid and she feels comfortable to go home today with the oral steroid and oral pain medications. She'll have close follow-up outpatient with us as well as with i nterventional pain management for possible further injections. We will order her a 12 day tapering course of prednisone. I answered questions and she is agreeable. His okay from spine standpoint for her to be discharged if she is cleared from medicine.
[2019-02-20] MEDS ORDERED: predniSONE 20 MG TAB PO SCH (10:30)
[2019-02-20] MEDS ORDERED: NAPROXEN 250 MG TAB PO SCH (16:00)
--- NOTE | 2019-02-20 23:32 | P.DS ---
Providers Date of admission: 02/18/19 13:26 Expected date of discharge: 02/20/19 Attending physician: Dre Kennedy Consults: 02/16/19 12:15 Consult Physician Stat Consulting Provider: Rohit Heart Consult Reason/Comments: intractble back pain Do you want consulting provider notified?: Yes 02/17/19 17:04 Consult Physician Routine Consulting Provider: Rhonda Walton Consult Reason/Comments: back and left leg pain Do you want consulting provider notified?: Yes Primary care physician: [facility] Course: Discharge diagnoses: -Acute on chronic severe pain in the left thigh and hip area from severe radiculopathy/Scitica., Clinically improving -L3 to L5 disc herniation with lumbar stenosis and severe arthritis -Obesity BMI 34.0 -Acute gait dysfunction from above -Coronary artery disease with stent -Chronic fibromyalgia -GERD -Hyperlipidemia -Essential hypertension -Irritable bowel syndrome -Chronic nicotine dependence patient cigarette smoker Hospital course Patient presented with increasing pain in the left thigh buttock area and finding it difficult to use left leg. Retired and she is on 3 different occasions to get an MRI but unable to do so. Patient was given a cocktail of medications including steroids, and from anti-inflammatory and IV pain medications. Today upon discharge patient doing much better. Patient is counseled extensively about the use of pain medications and being dependent on the same. And the pros and cons and side effects. Did discuss with Dr. Skaggs today. Okay to be cleared by him.. Patient did have a computed tomography scan of lumbar spine that showed L4 to S1 foraminal encroachment and multilevel disc bulges and moderate spinal stenosis L3 to L4. Patient also did get a local steroid injection by anesthesia pain team. Discussion and discharge planning more than 35 minutes On examination: Afebrile, 77, 20, 1 46/84, 93% Walking better. Lungs fair entry Cardio vascular first seconds are normal Labs: White count 15.4 likely from steroids potassium 4.5 BUN 21 and creatinine 0.79 Disposition: Home Patient Condition at Discharge: Good Plan - Discharge Summary Discharge Rx Participant: No New Discharge Prescriptions: New Famotidine [Pepcid] 20 mg PO BID #24 tablet predniSONE 20 mg PO DAILY #24 tab Cyclobenzaprine [Flexeril] 10 mg PO TID #60 tab Naproxen [Naprosyn] 250 mg PO TID #30 tab Acetaminophen Tab [Tylenol] 650 mg PO Q6HR PRN tab PRN Reason: Mild Pain Or Fever > 100.5 Lisinopril-Hctz 10-12.5 mg [Zestoretic 10-12.5] 1 tab PO BID #60 tab Continue Lidocaine 5% Patch [Lidoderm 5% Patch] 1 patch TOPICAL DAILY PRN PRN Reason: Pain rOPINIRole HCL [Requip] 4 mg PO HS Esomeprazole Magnesium [NexIUM 24Hr] 20 mg PO HS DULoxetine HCL [Cymbalta] 60 mg PO HS oxyCODONE HCL [oxyCODONE HCL (IR)] 20 mg PO Q4H PRN PRN Reason: Pain Aspirin EC [Ecotrin Low Dose] 81 mg PO DAILY #30 tablet. Atorvastatin [Lipitor] 80 mg PO DAILY #30 tab Metoprolol Tartrate [Lopressor] 12.5 mg PO BID #603 tab Clopidogrel [Plavix] 75 mg PO DAILY #30 tab Nitroglycerin Sl Tabs [Nitrostat] 0.4 mg SUBLINGUAL Q5M PRN tab PRN Reason: Chest Pain Changed Zolpidem [Ambien] 5 mg PO HS PRN #0 PRN Reason: Insomnia Discontinued Methocarbamol [Robaxin-750] 750 mg PO DAILY PRN PRN Reason: BACK PAIN Lisinopril [Zestril] 10 mg PO HS Discharge Medication List DULoxetine HCL [Cymbalta] 60 mg PO HS 11/03/18 [History] Esomeprazole Magnesium [NexIUM 24Hr] 20 mg PO HS 11/03/18 [History] Lidocaine 5% Patch [Lidoderm 5% Patch] 1 patch TOPICAL DAILY PRN 11/03/18 [History] oxyCODONE HCL [oxyCODONE HCL (IR)] 20 mg PO Q4H PRN 11/03/18 [History] rOPINIRole HCL [Requip] 4 mg PO HS 11/03/18 [History] Aspirin EC [Ecotrin Low Dose] 81 mg PO DAILY #30 tablet. 11/05/18 [Rx] Atorvastatin [Lipitor] 80 mg PO DAILY #30 tab 11/05/18 [Rx] Clopidogrel [Plavix] 75 mg PO DAILY #30 tab 11/05/18 [Rx] Metoprolol Tartrate [Lopressor] 12.5 mg PO BID #603 tab 11/05/18 [Rx] Nitroglycerin Sl Tabs [Nitrostat] 0.4 mg SUBLINGUAL Q5M PRN tab 12/21/18 [Rx] Acetaminophen Tab [Tylenol] 650 mg PO Q6HR PRN tab 02/20/19 [Rx] Cyclobenzaprine [Flexeril] 10 mg PO TID #60 tab 02/20/19 [Rx] Famotidine [Pepcid] 20 mg PO BID #24 tablet 02/20/19 [Rx] Lisinopril-Hctz 10-12.5 mg [Zestoretic 10-12.5] 1 tab PO BID #60 tab 02/20/19 [Rx] Naproxen [Naprosyn] 250 mg PO TID #30 tab 02/20/19 [Rx] Zolpidem [Ambien] 5 mg PO HS PRN #0 02/20/19 [Rx] predniSONE 20 mg PO DAILY #24 tab 02/20/19 [Rx] Follow up Appointment(s)/Referral(s): Rohit Heart DO [Doctor of Osteopathic Medicine] - 1 Week Rhonda Walton MD [STAFF PHYSICIAN] - 1 Week Fransico Urena MD [Primary Care Provider] - 3 Days Patient Instructions/Handouts: Leg Pain (ED) Discharge Disposition: HOME SELF-CARE
== END 2019-02-20 11:32 | disposition home or self-care (01) | DRG 552 ==
LOC: EC 05:13 → 4MS4W 12:09 → OBSVTOIN 02-18 13:26
PROVIDERS: ADMIT Hospitalist; ATTEND Hospitalist
PROC: 3E0U3BZ Introduction of Anesthetic Agent into Joints, Percutaneous Approach (ICD-10-PCS; principal; 2019-02-18 11:30)
PROC: 3E0U33Z Introduction of Anti-inflammatory into Joints, Percutaneous Approach (ICD-10-PCS; principal; 2019-02-18 11:30)
DX: M51.16 Intervertebral disc disorders with radiculopathy, lumbar region (principal); M47.16 Other spondylosis with myelopathy, lumbar region; M51.06 Intervertebral disc disorders with myelopathy, lumbar region; N39.0 Urinary tract infection, site not specified; E66.9 Obesity, unspecified; E78.5 Hyperlipidemia, unspecified; F17.210 Nicotine dependence, cigarettes, uncomplicated; F41.9 Anxiety disorder, unspecified; G89.4 Chronic pain syndrome; I10 Essential (primary) hypertension; I25.10 Atherosclerotic heart disease of native coronary artery without angina pectoris; I25.2 Old myocardial infarction; I73.00 Raynaud's syndrome without gangrene; K21.9 Gastro-esophageal reflux disease without esophagitis; K58.9 Irritable bowel syndrome, unspecified; M41.9 Scoliosis, unspecified; M46.1 Sacroiliitis, not elsewhere classified; M46.96 Unspecified inflammatory spondylopathy, lumbar region; M47.26 Other spondylosis with radiculopathy, lumbar region; M48.061 Spinal stenosis, lumbar region without neurogenic claudication; Z68.34 Body mass index [BMI] 34.0-34.9, adult; M79.7 Fibromyalgia; W19.XXXA Unspecified fall, initial encounter; Z79.02 Long term (current) use of antithrombotics/antiplatelets; Z79.82 Long term (current) use of aspirin; Z79.899 Other long term (current) drug therapy; Z80.0 Family history of malignant neoplasm of digestive organs; Z82.49 Family history of ischemic heart disease and other diseases of the circulatory system; Z83.3 Family history of diabetes mellitus; Z86.14 Personal history of Methicillin resistant Staphylococcus aureus infection; Z90.49 Acquired absence of other specified parts of digestive tract; Z90.710 Acquired absence of both cervix and uterus; Z91.81 History of falling; Z95.5 Presence of coronary angioplasty implant and graft; Z91.018 Allergy to other foods; M79.652 Pain in left thigh
CPT/HCPCS: 27096; 36415; 71045; 72131; 80048; 80053; 80306; 81001; 82550; 85025; 87040; 87086; 96361; 96372; 96374; 99152; 99285

== ENCOUNTER → 2019-05-20 | Outpatient (CLI) | payer BC ==
[2019-05-20 15:33] LABS: Calcium 9.4 mg/dL (8.4-10.2); Potassium 4.3 mmol/L (3.5-5.1); Total Bilirubin 0.4 mg/dL (0.2-1.3)
[2019-05-20 15:40] LABS: INR 1.1 (<1.2); Partial Thromboplastin Time 26.2 sec (22.0-30.0); Prothrombin Time 11.2 sec (9.0-12.0)
[2019-05-20 15:53] LABS: Basophils # (A) 0.1 k/uL (0-0.2); Basophils % (A) 1 %; Eosinophils # (A) 0.2 k/uL (0-0.7); Eosinophils % (A) 2 %; HCT 40.4 % (34.0-46.0); HGB 13.4 gm/dL (11.4-16.0); Lymphocytes % (A) 22 %; MCH 29.9 pg (25.0-35.0); MCHC 33.1 g/dL (31.0-37.0); MCV 90.1 fL (80.0-100.0); Monocytes # (A) 0.6 k/uL (0-1.0); Monocytes % (A) 4 %; Neutrophils # (A) 9.7 k/uL (1.3-7.7); Neutrophils % (A) 70 %; Platelet Count 373 k/uL (150-450); RBC 4.48 m/uL (3.80-5.40); RDW 14.8 % (11.5-15.5); WBC 13.8 k/uL (3.8-10.6)
[2019-05-20 18:12] LABS: Appearance,Urine Cloudy (Clear); Bacteria,Urine Occasional /hpf; Bilirubin,Urine Negative (Negative); Blood,Urine Small (Negative); Color,Urine Yellow; Glucose,Urine (UA) Negative (Negative); Hyaline Casts,Urine 27 /lpf (0-2); Ketones,Urine Negative (Negative); Leukocyte Esterase,Urine Large (Negative); Mucus,Urine Occasional /hpf; Nitrite,Urine Positive (Negative); PH, Urine 6.5 (5.0-8.0); Protein,Urine 1+ (Negative); RBC,Urine 3 /hpf (0-5); Specific Gravity,Urine 1.014 (1.001-1.035); Squamous Epithelial Cell,Urine 2 /hpf (0-4); Urobilinogen,Urine <2.0 mg/dL (<2.0); WBC,Urine >182 /hpf (0-5)
--- NOTE | 2019-05-21 04:51 | XR ---
EXAMINATION TYPE: XR chest 2V DATE OF EXAM: 05/20/2019 COMPARISON: 02/16/2019 HISTORY: 53-year-old female preoperative evaluation for back surgery TECHNIQUE: PA and lateral views FINDINGS: Heart normal size. Aorta and pulmonary vasculature within normal limits. Mild interstitial prominence is unchanged. No consolidation or pleural effusion. IMPRESSION: Chronic changes without acute cardiopulmonary process.
== END | disposition home or self-care (01) ==
LOC: LABPAT 14:50
PROVIDERS: ATTEND Orthopaedic Surgery Orthopaedic Surgery of the Spine
DX: Z01.818 Encounter for other preprocedural examination (principal); Z01.812 Encounter for preprocedural laboratory examination; M51.9 Unspecified thoracic, thoracolumbar and lumbosacral intervertebral disc disorder; R91.8 Other nonspecific abnormal finding of lung field
CPT/HCPCS: 36415; 71046; 80053; 81001; 85025; 85610; 85730; 86850; 86900; 86901

== ENCOUNTER 2019-05-24 11:54 | Day surgery (SDC) | payer BC ==
[2019-05-21 11:22] VITALS: BMI 34.7
[~2019-05-24 11:54] MED LIST changes: -ALPRAZolam 0.25 MG TAB PO PRN; -ALPRAZolam 0.5 MG TAB PO PRN; -ASPIRIN 325 MG TAB PO ONE; -ATORVASTATIN 80 MG TAB PO ONE; +DEXAMETHASONE SOD PHOSPHATE 10 MG/ML 1 ML VIAL IV ONE; +HYDROmorphone 0.5 MG/0.5 ML SYRINGE IVP PRN; +MIDAZOLAM 2 MG/2 ML VIAL IV PRN; -NITROGLYCERIN SL TABS 0.4 MG TAB SUBLINGUAL PRN; -SODIUM CHLORIDE 0.9% 1,000 ML in EMPTY BAG 1 BAG IV ONE
[2019-05-24] MEDS: LACTATED RINGERS 1,000 ML IV SCH ×2 (12:13→13:12)
[2019-05-24] MEDS: LIDOCAINE 1% 20 ML VIAL (10MG/ML) FOR IV START INTRADERMA PRN ×2 (12:13→13:12)
[2019-05-24] MEDS ORDERED: LIDOCAINE 0.5%-EPI 1:200,000 50 ML VIAL SQ ONE ×3 (12:52→13:38)
[2019-05-24] MEDS ORDERED: methylPREDNISolone ACETATE 40 MG/ML 1 ML VIAL MISCELLANE ONE ×3 (12:53→14:28)
[2019-05-24] MEDS: BACITRACIN 50,000 UNIT, POLYMYXIN B 500,000 UNIT in SODIUM CHLORIDE 0.9% IRRIGATIO 1,00... IRRIGATION ONE ×2 (12:54→13:38)
[2019-05-24] MEDS ORDERED: SUCCINYLCHOLINE CHLORIDE 100 MG/5 ML SYR IV ONE (13:21)
[2019-05-24] MEDS ORDERED: LIDOCAINE 1% INJ 10MG/ML (20 ML MDV) ONE (13:21)
[2019-05-24] MEDS ORDERED: PROPOFOL 10 MG/ML 20 ML VIAL IV ONE (13:21)
[2019-05-24] MEDS ORDERED: VECURONIUM 10 MG VIAL IV ONE (13:21)
[2019-05-24] MEDS ORDERED: fentaNYL (PF) 50 MCG/ML 2 ML AMP ONE (13:21)
[2019-05-24] MEDS ORDERED: MIDAZOLAM 2 MG/2 ML VIAL ONE (13:21)
[2019-05-24] MEDS ORDERED: KETOROLAC 30 MG/ML 1 ML VIAL ONE (13:21)
[2019-05-24] MEDS ORDERED: GLYCOPYRROLATE 0.2 MG/ML 2 ML VIAL ONE (13:21)
[2019-05-24] MEDS ORDERED: ePHEDrine SULFATE/0.9% NACL/PF 50 MG/5 ML SYRINGE IV ONE (13:21)
[2019-05-24] MEDS ORDERED: NEOSTIGMINE 1 MG/ML 10 ML VIAL ONE (13:21)
[2019-05-24] MEDS ORDERED: LACTATED RINGERS 1,000 ML IV ONE ×2 (14:02)
[2019-05-24] MEDS ORDERED: HYDROcodone/APAP 5-325MG 1 EACH TAB PO PRN (14:45)
[2019-05-24] MEDS ORDERED: ONDANSETRON 4 MG/2 ML VIAL IVP PRN (14:45)
[2019-05-24] MEDS ORDERED: HYDROmorphone 0.5 MG/0.5 ML SYRINGE IVP PRN (14:45)
[2019-05-24] MEDS ORDERED: BENZOCAINE/MENTHOL LOZENG 1 EACH LOZENGE MUCOUS MEM PRN (14:45)
[2019-05-24] MEDS ORDERED: KETOROLAC 30 MG/ML 1 ML VIAL IVP PRN (14:45)
[2019-05-24] MEDS ORDERED: MAGNESIUM HYDROXIDE 2,400 MG/10 ML CUP PO PRN (14:45)
[2019-05-24] MEDS ORDERED: SODIUM CHLORIDE 0.9% 1,000 ML IV SCH (14:45)
[2019-05-24] MEDS ORDERED: HYDROmorphone 1 MG/ML 1 ML SYRINGE IVP PRN (14:45)
[2019-05-24] MEDS ORDERED: LIDOCAINE 5% PATCH TOPICAL PRN (14:47)
[2019-05-24] MEDS ORDERED: CYCLOBENZAPRINE 10 MG TAB PO PRN (14:47)
[2019-05-24] MEDS ORDERED: NITROGLYCERIN SL TABS 0.4 MG TAB SUBLINGUAL PRN (14:47)
--- NOTE | 2019-05-24 14:54 | P.OP ---
Date of Procedure: 05/24/19 Preoperative Diagnosis: L3 4 far lateral left disc herniation with extruded fragment, left lower extremity radiculopathy, left lower extremity weakness Postoperative Diagnosis: Same Anesthesia: GETA Pathology: none sent Condition: stable Disposition: PACU Description of Procedure: BRIEF OPERATIVE NOTE Preoperative Diagnosis:L3 4 far lateral left disc herniation with extruded fragment, left lower extremity radiculopathy, left lower extremity weakness Postoperative Diagnosis:L3 4 far lateral left disc herniation with extruded fragment, left lower extremity radiculopathy, left lower extremity weakness Procedure: Laminectomy and decompression Discectomy for decompression, far lateral Use of fluoroscopic guidance Surgeon: Dr. Heart Brick Pointer: Abelardo Tompkins is present throughout the entire the case persistence during positioning, dissection, exposure, visualization, and all crucial elements of the case as well as closure. Anesthesia: General anesthesia per Dr. Whitehead Estimated blood loss: Less than 50 mL Complications: None apparent Components implanted: None Disposition: To recovery room in good stable condition. OPERATIVE INDICATIONS The patient has been having issues in their lower back and lower extremities. She is having significant pain at her back and down her left lower extremity over the L3 distribution. She is having worsening of her pain at her left leg and significant debility. She is having weakness with dorsiflexion and EHL. She is found have a large extruded disc herniation at L3 4 the far lateral space. This correlated well with her low back and lower extremity symptoms. The patient has been through conservative treatment. She is not having any prolonged benefit despite aggressive conservative care. We discussed various treatment options including surgery, and the patient wishes to proceed with surgery We discussed the risk, patient's alternatives and benefits of surgery including but not limited to, risk of bleeding risk of infection, risk of need for further surgery, risk of decreased, loss of motion, loss of function, nerve damage, paralysis, heart attack, blindness and . OPERATIVE SUMMARY After discussing all the risks, patient alternatives and benefits at length, the patient elected to proceed with surgical intervention, signed informed consent, and presented for their procedure. The patient was seen and examined in the preoperative holding area and the surgical site was marked. The patient was given antibiotics and brought to the operating room. The patient was sedated and intubated by anesthesia in standard fashion. The patient was positioned on to the operating room table in a prone position on the appropriate frame which was well-padded and well molded. We were careful to pad any bony prominences and pressure points. We were careful to maintain the patient's cervical spine and good neutral alignment and position throughout. The patient was prepped and draped in a normal standard fashion. An appropriate timeout and keystone protocol performed. We were able to proceed with the surgery. Fluoroscopy was utilized to establish the appropriate level. The local wound area was infiltrated with local anesthetic. An incision was made at the paramedian space approximately 3 and half centimeters longitudinally over the appropriate levels at L3 4. Dissection was taken down subcutaneously to the level of the fascia which was split in line with its fibers. Dissection was taken over the lateral aspect of the facet joints at L34 and L4 5. Intraoperative fluoroscopy was taken which showed a marker at the appropriate level at the disc space of L3 4. With the appropriate level positively confirmed, we were able to proceed with laminectomy and decompression. I chose to proceed with a lateral approach at the lateral aspect of the facet joint and this. Aspect of the transverse process of L4 I had to do partial lateral facetectomy bur to gain access to remove part of the lamina and part of the neural foramen to gain access to the neural foramen itself. The wound was copiously irrigated and suctioned dry as had been done periodically throughout the case. I performed a laminectomy with a combination of curettes and a high-speed bur and Kerrison rongeurs. A partial foraminotomy was also performed. Portions of the intertransverse ligament were taken down to expose the far lateral and exiting nerve root. I was able to mobilize the exiting nerve root and gain access to the disc space. There is large extruded disc fragment at the far lateral space. Note was made of obvious compression from the disc. Protecting the soft tissue structures, I was able to mobilize the extruded disc material. I was able to perform discectomy and remove any extruded disc fragments and any loose fragments from within the disc itself. There is some disc desiccation noted. I tried to preserve the disc annulus that appeared stable. There were no further extruded fragments noted. There is no evidence of dural tear or leak. Good hemostasis maintained. The wound was copiously irrigated and suctioned dry. Good decompression and discectomy was noted. We were able to proceed with closure. The fascia was closed for a watertight closure. The subcuticular tissue was closed with absorbable suture. The wound was cleaned and dried and dressed with the appropriate dressing. The drapes were broken down. The patient was gently rolled back onto their hospital bed being careful to maintain their cervical spine and good neutral alignment and position. They were woken up by anesthesia, extubated, and brought to the recovery room in good stable condition. The patient will be admitted to the hospital for observation and for appropriate postoperative care, medical management and monitoring. We will continue to follow them closely about the postoperative course.
[2019-05-24 15:01] VITALS: TEMP 97.6
[2019-05-24] MEDS ORDERED: HYDROmorphone 1 MG/ML 1 ML SYRINGE IVP ONE ×3 (15:21→15:48)
--- NOTE | 2019-05-24 15:45 | XR ---
Fluoroscopy INDICATION: Pain FINDINGS: Fluoroscopy time: 7 seconds. Images obtained: 2. IMPRESSIONS: 1. Documentation of fluoroscopy.
[2019-05-24 16:11] VITALS: RESP 16
[2019-05-24 16:39] VITALS: BP 128/63; PULSE 58
[2019-05-24] MEDS ORDERED: METOPROLOL TARTRATE 12.5 MG TAB PO SCH (21:00)
[2019-05-24] MEDS ORDERED: FAMOTIDINE 20 MG TAB PO SCH (21:00)
[2019-05-24] MEDS ORDERED: NON FORMULARY DRUG (Esomeprazole Magnesium [Nexium 24hr] 20 MG) PO SCH (21:00)
[2019-05-24] MEDS ORDERED: DULoxetine HCL 60 MG CAPSULE.DR PO SCH (21:00)
[2019-05-24] MEDS ORDERED: ROPINIROLE HCL 4 MG PO SCH (21:00)
[2019-05-24] MEDS ORDERED: LISINOPRIL-HCTZ 10-12.5 MG 1 EACH TAB PO SCH (21:00)
[2019-05-25] MEDS ORDERED: ATORVASTATIN 80 MG TAB PO SCH (09:00)
[2019-05-25] MEDS ORDERED: NON FORMULARY DRUG (Aspirin Ec 81 MG) PO SCH (09:00)
[2019-05-25] MEDS ORDERED: CLOPIDOGREL 75 MG TAB PO SCH (09:00)
== END 2019-05-24 17:08 | disposition home or self-care (01) ==
LOC: OR 11:54
PROVIDERS: ATTEND Orthopaedic Surgery Orthopaedic Surgery of the Spine
DX: M51.16 Intervertebral disc disorders with radiculopathy, lumbar region (principal); M51.36 Other intervertebral disc degeneration, lumbar region; M47.26 Other spondylosis with radiculopathy, lumbar region; M41.86 Other forms of scoliosis, lumbar region; Z91.81 History of falling; I25.10 Atherosclerotic heart disease of native coronary artery without angina pectoris; I11.9 Hypertensive heart disease without heart failure; F17.210 Nicotine dependence, cigarettes, uncomplicated; E66.9 Obesity, unspecified; Z68.34 Body mass index [BMI] 34.0-34.9, adult; E78.5 Hyperlipidemia, unspecified; Z95.5 Presence of coronary angioplasty implant and graft; K21.9 Gastro-esophageal reflux disease without esophagitis; I25.2 Old myocardial infarction; I73.00 Raynaud's syndrome without gangrene; E78.00 Pure hypercholesterolemia, unspecified; Z90.710 Acquired absence of both cervix and uterus; Z83.3 Family history of diabetes mellitus; Z82.49 Family history of ischemic heart disease and other diseases of the circulatory system; Z79.02 Long term (current) use of antithrombotics/antiplatelets; Z79.82 Long term (current) use of aspirin; Z79.891 Long term (current) use of opiate analgesic; Z79.899 Other long term (current) drug therapy; Z88.6 Allergy status to analgesic agent
CPT/HCPCS: 86900; 86901; 86850; 72020; 36415; 63047; J2250; J1030; J2710; J0690; J2001; J3010; J1885; J1170; J0330; J2704

== ENCOUNTER → 2020-02-17 | Outpatient (CLI) | payer BC ==
--- NOTE | 2020-02-17 17:17 | CONS ---
CONSULTATION DATE OF SERVICE: 02/17/2020 This patient is a 54-year-old lady who has been evaluated in [facility] for significant excessive daytime sleepiness and episodes of sleepwalking during the night. HISTORY OF PRESENT ILLNESS/SLEEP-WAKE EVALUATION: The patient's usual sleep schedule is from 4 a.m. until 10 a.m. No TV in bedroom. She usually sleeps on the side position. She has mild snoring. She has episodes of sleepwalking, grinding teeth, episodes of palpitation, heartburn, restless legs, sleeptalking, positive history of eating during sleep time. In the morning the patient wakes up tired, has difficulties paying attention, falling asleep during the day, has problems with memory, concentration, depression, sexual dysfunction. Friendship Sleepiness Scale is in an extremely high range at 19. The patient takes many naps during the day, at noon, 3:30 p.m., 1:30 a.m. She has a positive history of seeing dreams while falling asleep; positive hypnagogic hallucinations. No history of sleep paralysis or cataplexy. PAST MEDICAL HISTORY: Her past medical history is positive for hypertension, coronary artery disease, headaches. PAST SURGICAL HISTORY: Tonsillectomy, cholecystectomy, status post right knee surgery, status post sinus surgery, status post carpal tunnel syndrome surgery. MEDICATIONS: Requip, Cymbalta, oxycodone, aspirin, clopidogrel, metoprolol, nitroglycerin for emergency situations, gabapentin, lisinopril, hydrochlorothiazide, Lidoderm patch for muscle spasms, meclizine for vertigo, cyclobenzaprine, Nexium. SOCIAL HISTORY: Positive for smoking one pack a day for 30 years. Alcohol consumption none. FAMILY HISTORY: Hypertension, heart problems, stroke, brain carcinoma in her sister, sleep apnea, colon cancer in her her father, thyroid problems, diabetes mellitus. REVIEW OF SYSTEMS: Significant amount of abnormal movements at night with a positive history of sleepwalking, sleep eating, significant daytime sleepiness. PHYSICAL EXAMINATION: GENERAL: A pleasant lady without distress. VITAL SIGNS: BP 103/58, HR 80, RR 16, height 5 feet 8-1/2 inches, weight 247 pounds with body mass index 37, temperature 98, oxygen saturation at room air 98%. HEENT: PERRLA, EOMI. Evaluation of oropharynx showed tongue protrudes midline. Extremely low position of soft palate. NECK: Supple. No JVD. Thyroid is not palpable. Wide for female at 16 inches in circumference. LUNGS: Clear to percussion and to auscultation. Good air exchange. No wheezing or rhonchi. HEART: S1, S2 regular. No murmurs, gallops or rubs. ABDOMEN: Obese. EXTREMITIES: No clubbing or cyanosis. MIXING PAN TENDER: Awake, alert, and oriented X3. Cranial nerves 2 to 7 intact. There is no fasciculation or atrophy. noted. No focal deficits observed. IMPRESSION: 1. Episodes of sleepwalking. 2. Episodes of eating during sleep time. 3. Mild snoring, awakenings from sleep, extremely low position of soft palate, wide neck, obesity; possible obstructive sleep apnea-hypopnea syndrome. 4. History of restless leg symptoms; possible periodic limb movements, on treatment with Requip. 5. Possibility of central sleep apnea. Patient is on treatment with oxycodone. 6. Hypertension. 7. Coronary artery disease, status post stent insertion. 8. Episodes of headaches. 9. Extreme excessive daytime sleepiness with Friendship Sleepiness Scale of 19. Differential diagnosis should include narcolepsy without cataplexy, including secondary narcolepsy. 10.Status post tonsillectomy. 11.Status post cholecystectomy. 12.Status post right knee surgery. 13.Status post sinus surgery. 14.History of surgical treatment for carpal tunnel syndrome. PLAN: 1. Polysomnography to check for parasomnia, possible periodic limb movements, sleepwalking and possible obstructive sleep apnea-hypopnea syndrome. 2. Multiple sleep latency test if the sleep study is negative for any physical abnormalities of sleep, like obstructive sleep apnea or possible hypersomnia and narcolepsy. 3. If narcolepsy is confirmed, the patient should have a CT scan or MRI of the brain to exclude secondary narcolepsy. 4. Losing weight. 5. Sleep hygiene with regular time in bed for 7-1/2 to 8 hours. Patient's previous sleep schedule is definitely abnormal. 6. Extreme precautions related to driving. No driving if feeling any sleepiness. 7. Preferable position during sleep on the side and up. 8. CPAP treatment if the sleep study is positive for obstructive sleep apnea-hypopnea syndrome. Thank you very much for referring this patient for consultation. Sincerely, Ventura Proctor, MD, PhD, FAASM Diplomat of [place] [employer] [employer] [facility] [place] MMEUGENE / WILLIAM: [phone] /
== END | disposition home or self-care (01) ==
LOC: SLEEP 15:02
PROVIDERS: ATTEND Internal Medicine
DX: G47.10 Hypersomnia, unspecified (principal); F51.3 Sleepwalking [somnambulism]; G47.8 Other sleep disorders; R06.83 Snoring; R51 Headache; E66.9 Obesity, unspecified; I10 Essential (primary) hypertension; I25.10 Atherosclerotic heart disease of native coronary artery without angina pectoris; Z95.5 Presence of coronary angioplasty implant and graft; Z90.89 Acquired absence of other organs; Z87.898 Personal history of other specified conditions; Z90.49 Acquired absence of other specified parts of digestive tract; Z98.890 Other specified postprocedural states; Z79.891 Long term (current) use of opiate analgesic; Z79.899 Other long term (current) drug therapy
CPT/HCPCS: 99211

== ENCOUNTER → 2021-04-13 | Outpatient (CLI) | payer BC ==
--- NOTE | 2021-04-13 18:38 | CT ---
EXAMINATION TYPE: CT thoracic spine wo con DATE OF EXAM: 04/13/2021 COMPARISON: CT chest 09/24/2011 HISTORY: Radiculopathy. CT DLP: 1915.4 mGycm Automated exposure control for dose reduction was used. FINDINGS: There is S-shaped curvature of the thoracolumbar spine with mild dextro convex curvature of the midth oracic spine and mild levoconvex curvature lower thoracic / upper lumbar spine. Vertebral body heights and disc spaces are within normal limits. No fracture or subluxation. There is mild to moderate left neuroforaminal stenosis from T7 - T10. Prominent disc osteophyte compl ex at C5-C6 there is dense the ventral thecal sac. A central disc protrusions are seen at several of the thoracic levels. Incidental note is made of lipomatous hypertrophy of intraatrial septum. IMPRESSION: 1. S-shaped curvature of the thoracolumbar spine with [id number] left neural foraminal stenosi s from T7 to T10. 2. Lipomatous hypertrophy of the intraatrial septum.
== END | disposition home or self-care (01) ==
LOC: RADCTMAIN 13:54
PROVIDERS: ATTEND Orthopaedic Surgery Orthopaedic Surgery of the Spine
DX: D17.4 Benign lipomatous neoplasm of intrathoracic organs (principal)
CPT/HCPCS: 72128

== ENCOUNTER 2022-07-04 09:44 | Inpatient (IN) | payer BC ==
[2022-07-04] MEDS ORDERED: IPRATROPIUM 0.5 MG/2.5 ML NEBU INHALATION STA (10:31)
[2022-07-04] MEDS ORDERED: ALBUTEROL NEBULIZED 2.5 MG/3 ML INHALATION STA (10:31)
[2022-07-04] MEDS ORDERED: methylPREDNISolone SOD SUCCI 125 MG/2 ML VIAL IV STA (10:32)
--- NOTE | 2022-07-04 10:35 | ED ---
General Adult HPI - General Chief complaint: Shortness of Breath Stated complaint: COVID+,SOB,Vomiting Time Seen by Provider: 07/04/22 09:45 Source: patient, RN notes reviewed, old records reviewed Mode of arrival: wheelchair Limitations: no limitations - History of Present Illness Initial comments: This a 56-year-old female presents emergency department complaining she said difficulty breathing. Patient states she is a smoker. Patient states she did not get the COVID vaccine. Patient states she was diagnosed with COVID earlier in the week but her original symptoms started 6 days ago. Patient states she had the fever and chills but she just can't seem to catch her breath. Patient states the difficulty breathing seems to be worsening. Patient states she was given an inhaler Zithromax and prednisone but she still was not feeling good. Patient states she hasn't smoked for 2 days. Patient denies any chest pain or palpitations. Patient denies abdominal pain. Patient denies any nausea vomiting diarrhea. Patient denies headache patient denies numbness weakness. - Related Data Home Medications Medication Instructions Recorded Confirmed DULoxetine HCL [Cymbalta] 60 mg PO HS 11/03/18 05/21/19 Esomeprazole Magnesium [NexIUM 20 mg PO HS 11/03/18 05/21/19 24Hr] Lidocaine 5% Patch [Lidoderm 5% 1 patch TOPICAL DAILY PRN 11/03/18 05/24/19 Patch] oxyCODONE HCL [oxyCODONE HCL (IR)] 20 mg PO Q4H PRN 11/03/18 05/21/19 rOPINIRole HCL [Requip] 4 mg PO HS 11/03/18 05/21/19 Clopidogrel [Plavix] 75 mg PO DAILY 05/21/19 05/21/19 Cyclobenzaprine [Flexeril] 10 mg PO TID PRN 05/21/19 05/24/19 Previous Rx's Medication Instructions Recorded Aspirin EC [Ecotrin Low Dose] 81 mg PO DAILY #30 tablet. 11/05/18 Atorvastatin [Lipitor] 80 mg PO DAILY #30 tab 11/05/18 Metoprolol Tartrate [Lopressor] 12.5 mg PO BID #603 tab 11/05/18 Nitroglycerin Sl Tabs [Nitrostat] 0.4 mg SUBLINGUAL Q5M PRN tab 12/21/18 Famotidine [Pepcid] 20 mg PO BID #24 tablet 02/20/19 Lisinopril-Hctz 10-12.5 mg 1 tab PO BID #60 tab 02/20/19 [Zestoretic 10-12.5] Zolpidem [Ambien] 5 mg PO HS PRN #0 02/20/19 Allergies Allergy/AdvReac Type Severity Reaction Status Date / Time cashew nut Allergy Swelling Verified 07/04/22 09:47 naproxen Allergy HEARTBURN Verified 07/04/22 09:47 Review of Systems ROS Statement: Those systems with pertinent positive or pertinent negative responses have been documented in the HPI. ROS Other: All systems not noted in ROS Statement are negative. Past Medical History Past Medical History: Coronary Artery Disease (CAD), Chest Pain / Angina, Fibromyalgia, GERD/Reflux, Hyperlipidemia, Hypertension, Myocardial Infarction (TN), Osteoarthritis (OA) Additional Past Medical History / Comment(s): Chronic abdominal pain/nausea, diverticulitis with partial colectomy, reynauld's syndrome, IBS. Last Myocardial Infarction Date:: October 2018 History of Any Multi-Drug Resistant Organisms: MRSA Date of last positivie culture/infection: 2010 MDRO Source:: abdominal incision Past Surgical History: Back Surgery, Bowel Resection, Cholecystectomy, Heart Catheterization With Stent, Hernia Repair, Hysterectomy, Tonsillectomy Additional Past Surgical History / Comment(s): Back surgery twice for scoliosis, bowel resection for diverticulitis, hiatal hernia repair, total hysterectomy, R knee arthroscopy, bilateral carpal tunnel releases, R demoid ovarian cyst with surgery, anal fistula repair, rectal prolapse surgery, colonoscopy, EGD. Past Anesthesia/Blood Transfusion Reactions: No Reported Reaction Date of Last Stent Placement:: October 2018 Past Psychological History: Anxiety, Depression Smoking Status: Former smoker Past Alcohol Use History: None Reported Past Drug Use History: Marijuana - Past Family History Father Family Medical History: Coronary Artery Disease (CAD), Diabetes Mellitus, Thyroid Disorder Additional Family Medical History / Comment(s): Cancer of Colon, triple bypass at 49 yr old Mother Family Medical History: No Reported History Additional Family Medical History / Comment(s): Mother is healthy. General Exam - General Exam Comments Initial Comments: GENERAL: Patient is well-developed and well-nourished. Patient is nontoxic and well-hyd rated and is in mild distress. ENT: Neck is soft and supple. No significant lymphadenopathy is noted. Oropharynx is clear. Moist mucous membranes. Neck has full range of motion without eliciting any pain. EYES: The sclera were anicteric and conjunctiva were pink and moist. Extraocular movements were intact and pupils were equal round and reactive to light. Eyelids were unremarkable. PULMONARY: Diffuse expiratory wheezing CARDIOVASCULAR: There is a regular rate and rhythm without any murmurs gallops or rubs. ABDOMEN: Soft and nontender with normal bowel sounds. SKIN: Skin is clear with no lesions or rashes and otherwise unremarkable. NEUROLOGIC: Patient is alert and oriented x3. Cranial nerves II through XII are grossly intact. Motor and sensory are also intact. Normal speech, volume and content. Symmetrical smile. MUSCULOSKELETAL: Normal extremities with adequate strength and full range of motion. No calf tenderness or leg swelling. LYMPHATICS: No significant lymphadenopathy is noted PSYCHIATRIC: Normal psychiatric evaluation. Limitations: no limitations Course Vital Signs 07/04/22 07/04/22 09:44 10:00 Temperature 98.3 F Pulse Rate 94 Respiratory 28 H Rate Blood Pressure 160/105 O2 Sat by Pulse 89 L 93 L Oximetry Medical Decision Making - Medical Decision Making EKG was interpreted by me shows a sinus rhythm at 66 bpm AK interval 162 QRS is 92 QT interval 490 QTC is 423 per patient's EKG shows no ST segment elevation or depression. X-ray of the chest was interpreted by me. Chest x-ray showed no acute infiltrate no pleural effusions. Patient received breathing treatments in the emergency department and after the treatments I evaluated she was still wheezing diffusely. I asked the patient she felt better she stated she did not and she did not feel as though she can go home. I spoke with sounds physician's and they agreed to admit the patient admitted the patient remaining orders. - Lab Data Result diagrams: 07/04/22 10:58 07/04/22 10:58 Lab Results 07/04/22 07/04/22 07/04/22 Range/Units 10:58 10:58 10:58 WBC 15.1 H (3.8-10.6) k/uL RBC 5.52 H (3.80-5.40) m/uL Hgb 16.4 H (11.4-16.0) gm/dL Hct 48.9 H (34.0-46.0) % MCV 88.6 (80.0-100.0) fL MCH 29.8 (25.0-35.0) pg MCHC 33.6 (31.0-37.0) g/dL RDW 14.1 (11.5-15.5) % Plt Count 261 (150-450) k/uL MPV 8.7 Neutrophils % 80 % Lymphocytes % 14 % Monocytes % 4 % Eosinophils % 0 % Basophils % 0 % Neutrophils # 12.1 H (1.3-7.7) k/uL Lymphocytes # 2.1 (1.0-4.8) k/uL Monocytes # 0.6 (0-1.0) k/uL Eosinophils # 0.0 (0-0.7) k/uL Basophils # 0.0 (0-0.2) k/uL PT 11.2 (9.0-12.0) sec INR 1.0 (<1.2) APTT 23.4 (22.0-30.0) sec D-Dimer 0.56 (<0.60) mg/L FEU Sodium 142 (137-145) mmol/L Potassium 4.1 (3.5-5.1) mmol/L Chloride 97 L (98-107) mmol/L Carbon Dioxide 30 (22-30) mmol/L Anion Gap 15 mmol/L BUN 16 (7-17) mg/dL Creatinine 0.82 (0.52-1.04) mg/dL Est GFR (CKD-EPI)AfAm >90 (>60 ml/min/1.73 sqM) Est GFR (CKD-EPI)NonAf 81 (>60 ml/min/1.73 sqM) Glucose 162 H (74-99) mg/dL Plasma Lactic Acid Jamal (0.7-2.0) mmol/L Calcium 10.0 (8.4-10.2) mg/dL Magnesium 1.8 (1.6-2.3) mg/dL Total Bilirubin 0.6 (0.2-1.3) mg/dL AST 82 H (14-36) U/L ALT 58 H (4-34) U/L Alkaline Phosphatase 150 H (38-126) U/L Troponin I (0.000-0.034) ng/mL NT-Pro-B Natriuret Pep pg/mL Total Protein 8.4 H (6.3-8.2) g/dL Albumin 4.8 (3.5-5.0) g/dL 07/04/22 07/04/22 07/04/22 Range/Units 10:58 10:58 10:58 WBC (3.8-10.6) k/uL RBC (3.80-5.40) m/uL Hgb (11.4-16.0) gm/dL Hct (34.0-46.0) % MCV (80.0-100.0) fL MCH (25.0-35.0) pg MCHC (31.0-37.0) g/dL RDW (11.5-15.5) % Plt Count (150-450) k/uL MPV Neutrophils % % Lymphocytes % % Monocytes % % Eosinophils % % Basophils % % Neutrophils # (1.3-7.7) k/uL Lymphocytes # (1.0-4.8) k/uL Monocytes # (0-1.0) k/uL Eosinophils # (0-0.7) k/uL Basophils # (0-0.2) k/uL PT (9.0-12.0) sec INR (<1.2) APTT (22.0-30.0) sec D-Dimer (<0.60) mg/L FEU Sodium (137-145) mmol/L Potassium (3.5-5.1) mmol/L Chloride (98-107) mmol/L Carbon Dioxide (22-30) mmol/L Anion Gap mmol/L BUN (7-17) mg/dL Creatinine (0.52-1.04) mg/dL Est GFR (CKD-EPI)AfAm (>60 ml/min/1.73 sqM) Est GFR (CKD-EPI)NonAf (>60 ml/min/1.73 sqM) Glucose (74-99) mg/dL Plasma Lactic Acid Jamal 3.0 H* (0.7-2.0) mmol/L Calcium (8.4-10.2) mg/dL Magnesium (1.6-2.3) mg/dL Total Bilirubin (0.2-1.3) mg/dL AST (14-36) U/L ALT (4-34) U/L Alkaline Phosphatase (38-126) U/L Troponin I <0.012 (0.000-0.034) ng/mL NT-Pro-B Natriuret Pep 768 pg/mL Total Protein (6.3-8.2) g/dL Albumin (3.5-5.0) g/dL Disposition Clinical Impression: COVID-19, Acute bronchospasm Disposition: ADMITTED IP TO THIS HOSP Referrals: Domingo Barrett MD [Primary Care Provider] - 1-2 days Time of Disposition: 13:34
--- NOTE | 2022-07-04 11:54 | XR ---
EXAMINATION TYPE: XR chest 2V DATE OF EXAM: 07/04/2022 COMPARISON: 05/20/2019 INDICATION: Difficulty breathing and congestion cough TECHNIQUE: Frontal and lateral views of the chest are obtained. FINDINGS: The heart size is normal. The pulmonary vasculature is normal. The lungs are clear. IMPRESSION: 1. No acute pulmonary process.
[2022-07-04 12:07] LABS: Basophils % (A) 0 %; Eosinophils % (A) 0 %; HCT 48.9 % (34.0-46.0); HGB 16.4 gm/dL (11.4-16.0); Lymphocytes # (A) 2.1 k/uL (1.0-4.8); Lymphocytes % (A) 14 %; MCH 29.8 pg (25.0-35.0); MCHC 33.6 g/dL (31.0-37.0); MCV 88.6 fL (80.0-100.0); Mean Platelet Volume 8.7; Monocytes # (A) 0.6 k/uL (0-1.0); Monocytes % (A) 4 %; Neutrophils # (A) 12.1 k/uL (1.3-7.7); Neutrophils % (A) 80 %; Platelet Count 261 k/uL (150-450); RBC 5.52 m/uL (3.80-5.40); RDW 14.1 % (11.5-15.5); WBC 15.1 k/uL (3.8-10.6)
[2022-07-04 12:21] LABS: Partial Thromboplastin Time 23.4 sec (22.0-30.0); Prothrombin Time 11.2 sec (9.0-12.0)
[2022-07-04 12:27] LABS: ALT 58 U/L (4-34); AST 82 U/L (14-36); African American GFR (CKD) >90 (>60 ml/min/1.73 sqM); Albumin 4.8 g/dL (3.5-5.0); Alkaline Phosphatase 150 U/L (38-126); Anion Gap 15 mmol/L; Blood Urea Nitrogen 16 mg/dL (7-17); Carbon Dioxide 30 mmol/L (22-30); Chloride 97 mmol/L (98-107); Glucose 162 mg/dL (74-99); Magnesium 1.8 mg/dL (1.6-2.3); Non-African American GFR(CKD) 81 (>60 ml/min/1.73 sqM); Potassium 4.1 mmol/L (3.5-5.1); Sodium 142 mmol/L (137-145); Total Bilirubin 0.6 mg/dL (0.2-1.3); Total Protein 8.4 g/dL (6.3-8.2)
[2022-07-04] MEDS ORDERED: ALBUTEROL HFA INHALER INHALATION STA (12:40)
[2022-07-04] MEDS ORDERED: NALOXONE 0.4 MG/ML 1 ML VIAL IVP PRN (13:35)
[2022-07-04] MEDS ORDERED: ONDANSETRON 4 MG/2 ML VIAL IVP PRN (14:31)
[2022-07-04] MEDS ORDERED: ACETAMINOPHEN TAB 325 MG TAB PO PRN (14:31)
[2022-07-04] MEDS ORDERED: IBUPROFEN 400 MG TAB PO PRN (14:31)
[2022-07-04] MEDS ORDERED: NALOXONE 0.4 MG/ML 1 ML VIAL IV PRN (14:31)
[2022-07-04] MEDS ORDERED: BACLOFEN 10 MG TAB PO PRN (14:34)
--- NOTE | 2022-07-04 14:40 | P.HPIM ---
History of Present Illness H&P Date: 07/04/22 Chief Complaint: sob 56-year-old female with hx of CAD s/p [place] and one stent placement 3 years ago, HTN, fibromyalgia, chronic back pain who is a smoker presents with difficulty breathing. Patient states she did not get the COVID vaccine. Patient states she was diagnosed with COVID earlier in the week but her original symptoms started 6 days ago. Patient has been having fever, chills, sob, n/v, headaches. No chest or abdominal pain. No diarrhea. She was tried on an albuterol inhaler, Zithromax and prednisone but she still was not feeling good. In the emergency department patient had no fever, O2 saturations were 89% on room air, she was wheezing, had leukocytosis of 15,000, hemoglobin 16, hematocrit 48, normal platelet count. AST 82, ALT 58, electrolytes within normal limits. X-ray of the chest showed no acute infiltrate no pleural effusions. Patient was subsequently admitted for further evaluation and management. Review of Systems Complete review of system performed, pertinent positives per HPI, otherwise negative Past Medical History Past Medical History: Coronary Artery Disease (CAD), Chest Pain / Angina, Fibromyalgia, GERD/Reflux, Hyperlipidemia, Hypertension, Myocardial Infarction (AK), Osteoarthritis (OA) Additional Past Medical History / Comment(s): Chronic abdominal pain/nausea, diverticulitis with partial colectomy, reynauld's syndrome, IBS. Last Myocardial Infarction Date:: October 2018 History of Any Multi-Drug Resistant Organisms: MRSA Date of last positivie culture/infection: 2010 MDRO Source:: abdominal incision Past Surgical History: Back Surgery, Bowel Resection, Cholecystectomy, Heart Catheterization With Stent, Hernia Repair, Hysterectomy, Tonsillectomy Additional Past Surgical History / Comment(s): Back surgery twice for scoliosis, bowel resection for diverticulitis, hiatal hernia repair, total hysterectomy, R knee arthroscopy, bilateral carpal tunnel releases, R demoid ovarian cyst with surgery, anal fistula repair, rectal prolapse surgery, colonoscopy, EGD. Past Anesthesia/Blood Transfusion Reactions: No Reported Reaction Date of Last Stent Placement:: October 2018 Past Psychological History: Anxiety, Depression Smoking Status: Former smoker Past Alcohol Use History: None Reported Past Drug Use History: Marijuana - Past Family History Father Family Medical History: Coronary Artery Disease (CAD), Diabetes Mellitus, Thyroid Disorder Additional Family Medical History / Comment(s): Cancer of Colon, triple bypass at 49 yr old Mother Family Medical History: No Reported History Additional Family Medical History / Comment(s): Mother is healthy. Medications and Allergies Home Medications Medication Instructions Recorded Confirmed Type DULoxetine HCL [Cymbalta] 60 mg PO HS 11/03/18 07/04/22 History oxyCODONE HCL [oxyCODONE HCL (IR)] 20 mg PO Q4H 11/03/18 07/04/22 History rOPINIRole HCL [Requip] 4 mg PO HS 11/03/18 07/04/22 History Albuterol Sulfate [Albuterol 2 puff PO RT-Q6H PRN 07/04/22 07/04/22 History Sulfate Hfa] Aspirin EC [Ecotrin Low Dose] 81 mg PO HS 07/04/22 07/04/22 History Baclofen 10 mg PO TID PRN 07/04/22 07/04/22 History Cetirizine HCl [Zyrtec] 10 mg PO HS 07/04/22 07/04/22 History Isosorbide Mononitrate ER [Imdur] 15 mg PO HS 07/04/22 07/04/22 History Metoprolol Succinate (ER) [Toprol 25 mg PO HS 07/04/22 07/04/22 History Xl] hydroCHLOROthiazide 25 mg PO HS 07/04/22 07/04/22 History methylPREDNISolone [Medrol Dose See Taper PO DIRECTED 07/04/22 07/04/22 History Pack] Allergies Allergy/AdvReac Type Severity Reaction Status Date / Time cashew nut Allergy Swelling Verified 07/04/22 13:48 naproxen Allergy HEARTBURN Verified 07/04/22 13:48 Physical Exam Vitals: Vital Signs Temp Pulse Resp BP Pulse Ox 07/04/22 10:00 93 L 07/04/22 09:44 98.3 F 94 28 H 160/105 89 L Intake and Output 07/03/22 07/04/22 07/04/22 22:59 06:59 14:59 Other: Weight 108.862 kg Constitutional: No acute distress, conversant, pleasant Eyes:Anicteric sclerae, moist conjunctiva, no lid-lag, PERRLA, ENMT: Oropharynx clear, no erythema, exudates Neck: Supple, FROM, no masses, or JVD, No carotid bruits, No thyromegaly Lungs: bilateral diffuse wheezing and rhonchi, Clear to percussion, Normal respiratory effort, no accessory muscle use Cardiovascular: Heart regular in rate and rhythm, No murmurs, gallops, or rubs, No peripheral edema Abdominal: Soft, Nontender, no guarding, rebound or rigidity, Normoactive bowel sounds, No hepatomegaly, No splenomegaly, No palpable mass Skin: Normal temperature, tone, texture, turgor, no induration, No subcutaneous nodules, No rash, lesions, No ulcers Extremities: No digital cyanosis, No clubbing, Pedal pulses intact and symmetrical, Radial pulses intact and symmetrical, No calf tenderness Psychiatric: Alert and oriented to person, place and time, appropriate affect, intact judgement Neuro: Muscles Strength 5/5 in all 4 extremities, Sensation to light touch grossly present throughout, Cranial nerves II-XII grossly intact, no focal sensory deficits Results CBC & Chem 7: 07/04/22 10:58 07/04/22 10:58 Labs: Abnormal Lab Results - Last 24 Hours (Table) 07/04/22 07/04/22 07/04/22 Range/Units 10:58 10:58 10:58 WBC 15.1 H (3.8-10.6) k/uL RBC 5.52 H (3.80-5.40) m/uL Hgb 16.4 H (11.4-16.0) gm/dL Hct 48.9 H (34.0-46.0) % Neutrophils # 12.1 H (1.3-7.7) k/uL Chloride 97 L (98-107) mmol/L Glucose 162 H (74-99) mg/dL Plasma Lactic Acid Jamal 3.0 H* (0.7-2.0) mmol/L AST 82 H (14-36) U/L ALT 58 H (4-34) U/L Alkaline Phosphatase 150 H (38-126) U/L Total Protein 8.4 H (6.3-8.2) g/dL Assessment and Plan Plan: Acute respiratory failure with hypoxia COVID 19 Start IV steroids Duonebs IV fluids Symptomatic treatment with tylenol, motrin and zofran Check procal Chronic Coronary Artery Disease (CAD), Fibromyalgia, GERD/Reflux, Hyperlipidemia, Hypertension, Osteoarthritis (OA) All stable resume meds DVT prophylaxis Lovenox Admit to inpatient expected length of stay more than 2 midnights.
[2022-07-04] MEDS: ALBUTEROL HFA INHALER INHALATION SCH ×2 (15:35→21:00)
[2022-07-04] MEDS ORDERED: IPRATROPIUM-ALBUTEROL 3 ML NEB INHALATION SCH (16:00)
[2022-07-04] MEDS: SODIUM CHLORIDE 0.9% 1,000 ML IV STA ×2 (18:00→23:11)
[2022-07-04] MEDS ORDERED: methylPREDNISolone SOD SUCCI 125 MG/2 ML VIAL IV SCH (18:00)
[2022-07-04] MEDS: methylPREDNISolone SOD SUCCI 40 MG/ML 1 ML VIAL IV SCH ×2 (18:02→23:56)
[2022-07-04] MEDS ORDERED: PROCHLORPERAZINE INJ 10 MG/2 ML VIAL IVP STA (20:31)
[2022-07-04] MEDS ORDERED: SODIUM CHLORIDE 0.9% 1,000 ML IV ONE (20:31)
[2022-07-04] MEDS: METOPROLOL SUCCINATE (ER) 25 MG TAB.ER.24H PO SCH (21:56)
[2022-07-04] MEDS: LORATADINE 10 MG TAB PO SCH (21:56)
[2022-07-04] MEDS: rOPINIRole HCL 4 MG TABLET PO SCH (21:56)
[2022-07-04] MEDS: DULoxetine HCL 60 MG CAPSULE.DR PO SCH (21:56)
[2022-07-04] MEDS: ASPIRIN 81 MG PO SCH (21:56)
[2022-07-04] MEDS: ISOSORBIDE MONONITRATE ER 15 MG TAB PO SCH (21:56)
[2022-07-05] MEDS ORDERED: PROCHLORPERAZINE INJ 10 MG/2 ML VIAL IVP STA (04:24)
[2022-07-05] MEDS ORDERED: SODIUM CHLORIDE 0.9% 1,000 ML IV ONE (05:47)
[2022-07-05] MEDS: methylPREDNISolone SOD SUCCI 40 MG/ML 1 ML VIAL IV SCH ×4 (05:55→23:44)
[2022-07-05] MEDS: ALBUTEROL HFA INHALER INHALATION SCH ×4 (08:04→19:26)
[2022-07-05 11:29] LABS: Basophils # (A) 0.05 X 10*3/uL (0.00-0.10); Basophils % (A) 0.2 %; Eosinophils # (A) 0.01 X 10*3/uL (0.04-0.35); Eosinophils % (A) 0 %; HCT 44.7 % (37.2-46.3); HGB 14.1 g/dL (12.0-15.0); Immature Grans, Automated 0.6 %; Lymphocytes # (A) 1.08 X 10*3/uL (0.90-5.00); Lymphocytes % (A) 5.1 %; MCH 28.7 pg (27.0-32.0); MCHC 31.5 g/dL (32.0-37.0); Mean Platelet Volume 11.5 fL (9.5-12.2); Monocytes # (A) 0.91 X 10*3/uL (0.20-1.00); Monocytes % (A) 4.3 %; NRBC Per 100 WBC 0 /100 WBCS (0.0-0.0); Neutrophils # (A) 19.04 X 10*3/uL (1.80-7.70); Neutrophils % (A) 89.8 %; Platelet Count 229 X 10*3/uL (140-440); RBC 4.91 X 10*6/uL (4.10-5.20); RDW 15.6 % (11.5-14.5); WBC 21.21 X 10*3/uL (4.50-10.00)
[2022-07-05 11:58] LABS: Magnesium 1.8 mg/dL (1.5-2.4)
[2022-07-05 12:01] LABS: African American GFR (CKD) 74.4 (60.0-200.0); Albumin 3.6 g/dL (3.8-4.9); Albumin/Globulin Ratio 1.28 (1.60-3.17); Anion Gap 15.4 mmol/L (10.00-18.00); BUN/Creat Ratio 17.59 Ratio (12.00-20.00); Blood Urea Nitrogen 17.4 mg/dL (9.0-27.0); Calcium 9.1 mg/dL (8.7-10.3); Carbon Dioxide 21.3 mmol/L (20.0-27.5); Globulin 2.8 g/dL (1.6-3.3); Non-African American GFR(CKD) 64.2 (60.0-200.0); Potassium 5.6 mmol/L (3.5-5.5); Total Bilirubin 0.3 mg/dL (0.30-1.20); Total Protein 6.4 g/dL (6.2-8.2)
--- NOTE | 2022-07-05 12:47 | P.PN ---
Subjective Progress Note Date: 07/05/22 Principal diagnosis: sob Feeling much better today. Breathing is easier. Still with cough. No pain or fevers. No nausea or vomiting. Objective - Vital Signs Vital signs: Vital Signs Temp 97.5 F L 07/05/22 11:10 Pulse 61 07/05/22 11:10 Resp 18 07/05/22 11:10 BP 145/80 07/05/22 11:10 Pulse Ox 91 L 07/05/22 11:10 FiO2 Intake & Output 07/04/22 07/05/22 07/05/22 18:59 06:59 18:59 Weight 108.862 kg Other: Voiding Method Toilet # Voids 3 - Exam Constitutional: No acute distress, conversant, pleasant Eyes:Anicteric sclerae, moist conjunctiva, no lid-lag, PERRLA, ENMT: Oropharynx clear, no erythema, exudates Neck: Supple, FROM, no masses, or JVD, No carotid bruits, No thyromegaly Lungs: Clear to auscultation, Clear to percussion, Normal respiratory effort, no accessory muscle use Cardiovascular: Heart regular in rate and rhythm, No murmurs, gallops, or rubs, No peripheral edema Abdominal: Soft, Nontender, no guarding, rebound or rigidity, Normoactive bowel sounds, No hepatomegaly, No splenomegaly, No palpable mass Skin: Normal temperature, tone, texture, turgor, no induration, No subcutaneous nodules, No rash, lesions, No ulcers Extremities: No digital cyanosis, No clubbing, Pedal pulses intact and symmet rical, Radial pulses intact and symmetrical, No calf tenderness Psychiatric: Alert and oriented to person, place and time, appropriate affect, intact judgement Neuro: Muscles Strength 5/5 in all 4 extremities, Sensation to light touch grossly present throughout, Cranial nerves II-XII grossly intact, no focal sensory deficits - Labs CBC & Chem 7: 07/05/22 06:58 07/05/22 06:58 Labs: Abnormal Lab Results - Last 24 Hours (Table) 07/04/22 07/04/22 07/04/22 Range/Units 13:51 14:44 14:44 WBC (4.50-10.00) X 10*3/uL MCHC (32.0-37.0) g/dL RDW (11.5-14.5) % Immature Gran # (0.00-0.04) X 10*3/uL Neutrophils # (1.80-7.70) X 10*3/uL Eosinophils # (0.04-0.35) X 10*3/uL Potassium (3.5-5.5) mmol/L Glucose (70-110) mg/dL Plasma Lactic Acid Jamal 2.6 H* (0.7-2.0) mmol/L AST (13-35) U/L ALT (8-44) U/L Albumin (3.8-4.9) g/dL Albumin/Globulin Ratio (1.60-3.17) g/dL Procalcitonin 0.20 H (0.02-0.09) ng/mL Coronavirus (PCR) Detected A (Not Detectd) 07/04/22 07/04/22 07/05/22 Range/Units 18:09 21:13 00:19 WBC (4.50-10.00) X 10*3/uL MCHC (32.0-37.0) g/dL RDW (11.5-14.5) % Immature Gran # (0.00-0.04) X 10*3/uL Neutrophils # (1.80-7.70) X 10*3/uL Eosinophils # (0.04-0.35) X 10*3/uL Potassium (3.5-5.5) mmol/L Glucose (70-110) mg/dL Plasma Lactic Acid Jamal 4.3 H* 4.5 H* 4.3 H* (0.7-2.0) mmol/L AST (13-35) U/L ALT (8-44) U/L Albumin (3.8-4.9) g/dL Albumin/Globulin Ratio (1.60-3.17) g/dL Procalcitonin (0.02-0.09) ng/mL Coronavirus (PCR) (Not Detectd) 07/05/22 07/05/22 07/05/22 Range/Units 04:44 06:58 06:58 WBC 21.21 H (4.50-10.00) X 10*3/uL MCHC 31.5 L (32.0-37.0) g/dL RDW 15.6 H (11.5-14.5) % Immature Gran # 0.12 H (0.00-0.04) X 10*3/uL Neutrophils # 19.04 H (1.80-7.70) X 10*3/uL Eosinophils # 0.01 L (0.04-0.35) X 10*3/uL Potassium 5.6 H (3.5-5.5) mmol/L Glucose 233 H (70-110) mg/dL Plasma Lactic Acid Jamal 6.5 H* (0.7-2.0) mmol/L AST 44 H (13-35) U/L ALT 51 H (8-44) U/L Albumin 3.6 L (3.8-4.9) g/dL Albumin/Globulin Ratio 1.28 L (1.60-3.17) g/dL Procalcitonin (0.02-0.09) ng/mL Coronavirus (PCR) (Not Detectd) 07/05/22 07/05/22 Range/Units 07:45 10:28 WBC (4.50-10.00) X 10*3/uL MCHC (32.0-37.0) g/dL RDW (11.5-14.5) % Immature Gran # (0.00-0.04) X 10*3/uL Neutrophils # (1.80-7.70) X 10*3/uL Eosinophils # (0.04-0.35) X 10*3/uL Potassium (3.5-5.5) mmol/L Glucose (70-110) mg/dL Plasma Lactic Acid Jamal 2.6 H* 2.8 H* (0.7-2.0) mmol/L AST (13-35) U/L ALT (8-44) U/L Albumin (3.8-4.9) g/dL Albumin/Globulin Ratio (1.60-3.17) g/dL Procalcitonin (0.02-0.09) ng/mL Coronavirus (PCR) (Not Detectd) Assessment and Plan Plan: Acute respiratory failure with hypoxia COVID 19 Minimal O2 requirements. Cotinue IV steroids Albuterol inhaler IV fluids Symptomatic treatment with tylenol, motrin and zofran Procal minimally elevated, no need for abx. Chronic Coronary Artery Disease (CAD), Fibromyalgia, GERD/Reflux, Hyperlipidemia, Hypertension, Osteoarthritis (OA) All stable resume meds DVT prophylaxis Lovenox
[2022-07-05] MEDS: ENOXAPARIN 40 MG/0.4 ML SYRINGE SQ SCH (14:52)
[2022-07-05 20:38] VITALS: BP 173/95; PULSE 66; RESP 16; TEMP 97.5
[2022-07-05] MEDS: ASPIRIN 81 MG PO SCH (20:46)
[2022-07-05] MEDS: METOPROLOL SUCCINATE (ER) 25 MG TAB.ER.24H PO SCH (20:46)
[2022-07-05] MEDS: ISOSORBIDE MONONITRATE ER 15 MG TAB PO SCH (20:46)
[2022-07-05] MEDS: rOPINIRole HCL 4 MG TABLET PO SCH (20:46)
[2022-07-05] MEDS: LORATADINE 10 MG TAB PO SCH (20:46)
[2022-07-05] MEDS: DULoxetine HCL 60 MG CAPSULE.DR PO SCH (20:46)
[2022-07-06] MEDS: ALBUTEROL HFA INHALER INHALATION SCH ×2 (08:42→11:38)
[2022-07-06] MEDS: ENOXAPARIN 40 MG/0.4 ML SYRINGE SQ SCH (12:50)
[2022-07-06] MEDS: methylPREDNISolone SOD SUCCI 40 MG/ML 1 ML VIAL IV SCH ×2 (12:50→12:51)
--- NOTE | 2022-07-06 14:13 | P.DS ---
Providers Date of admission: 07/04/22 13:35 Expected date of discharge: 07/06/22 Attending physician: Yana Hickey MD Primary care physician: Domingo Barrett MD Hospital Course: 56-year-old female with hx of CAD s/p [place] and one stent placement 3 years ago, HTN, fibromyalgia, chronic back pain who is a smoker presents with difficulty breathing. Patient states she did not get the COVID vaccine. Patient states she was diagnosed with COVID earlier in the week but her original symptoms started 6 days ago. Patient has been having fever, chills, sob, n/v, headaches. No chest or abdominal pain. No diarrhea. She was tried on an albuterol inhaler, Zithromax and prednisone but she still was not feeling good. In the emergency department patient had no fever, O2 saturations were 89% on room air, she was wheezing, had leukocytosis of 15,000, hemoglobin 16, hematocrit 48, normal platelet count. AST 82, ALT 58, electrolytes within normal limits. X-ray of the chest showed no acute infiltrate no pleural effusions. Patient was subsequently admitted for further evaluation and management. Upon admission she was started on IV steroids in addition to bronchodilators. She felt better over the next few days. Initially she required some oxygen but later on the time discharge she did not require any. She was walked prior to discharge and her O2 sats remained stable with walking. She was advised to quit smoking. She is currently stable for discharge, will be discharged home in stable condition. She was evaluated [id number] on the day of discharge 07/06 Time for discharge 35 minutes. Plan - Discharge Summary New Discharge Prescriptions: New predniSONE [Deltasone] 40 mg PO DAILY 5 Days #5 tab Continue rOPINIRole HCL [Requip] 4 mg PO HS DULoxetine HCL [Cymbalta] 60 mg PO HS oxyCODONE HCL [oxyCODONE HCL (IR)] 20 mg PO Q4H Aspirin EC [Ecotrin Low Dose] 81 mg PO HS Metoprolol Succinate (ER) [Toprol XL] 25 mg PO HS Isosorbide Mononitrate ER [Imdur] 15 mg PO HS hydroCHLOROthiazide 25 mg PO HS Cetirizine HCl [Zyrtec] 10 mg PO HS Baclofen 10 mg PO TID PRN PRN Reason: Pain Albuterol Sulfate [Albuterol Sulfate Hfa] 2 puff PO RT-Q6H PRN PRN Reason: Shortness Of Breath Discontinued methylPREDNISolone [Medrol Dose Pack] See Taper PO DIRECTED Discharge Medication List DULoxetine HCL [Cymbalta] 60 mg PO HS 11/03/18 [History] oxyCODONE HCL [oxyCODONE HCL (IR)] 20 mg PO Q4H 11/03/18 [History] rOPINIRole HCL [Requip] 4 mg PO HS 11/03/18 [History] Albuterol Sulfate [Albuterol Sulfate Hfa] 2 puff PO RT-Q6H PRN 07/04/22 [History] Aspirin EC [Ecotrin Low Dose] 81 mg PO HS 07/04/22 [History] Baclofen 10 mg PO TID PRN 07/04/22 [History] Cetirizine HCl [Zyrtec] 10 mg PO HS 07/04/22 [History] Isosorbide Mononitrate ER [Imdur] 15 mg PO HS 07/04/22 [History] Metoprolol Succinate (ER) [Toprol XL] 25 mg PO HS 07/04/22 [History] hydroCHLOROthiazide 25 mg PO HS 07/04/22 [History] predniSONE [Deltasone] 40 mg PO DAILY 5 Days #5 tab 07/06/22 [Rx] Follow up Appointment(s)/Referral(s): Domingo Barrett MD [Primary Care Provider] - 1-2 days
== END 2022-07-06 14:43 | disposition home or self-care (01) | DRG 177 ==
LOC: EC 09:44 → 4SSUR 13:35
PROVIDERS: ADMIT Internal Medicine; ATTEND Internal Medicine
PROC: 3E0F7SF Introduction of Other Gas into Respiratory Tract, Via Natural or Artificial Opening (ICD-10-PCS; principal; 2022-07-04)
DX: U07.1 COVID-19 (principal); J96.01 Acute respiratory failure with hypoxia; I25.10 Atherosclerotic heart disease of native coronary artery without angina pectoris; M79.7 Fibromyalgia; K21.9 Gastro-esophageal reflux disease without esophagitis; Z90.49 Acquired absence of other specified parts of digestive tract; M19.90 Unspecified osteoarthritis, unspecified site; I10 Essential (primary) hypertension; E78.5 Hyperlipidemia, unspecified; F17.210 Nicotine dependence, cigarettes, uncomplicated; Z71.6 Tobacco abuse counseling; F32.A Depression, unspecified; F41.9 Anxiety disorder, unspecified; I25.2 Old myocardial infarction; J98.01 Acute bronchospasm; M41.9 Scoliosis, unspecified; Z28.310 Unvaccinated for COVID-19; Z79.02 Long term (current) use of antithrombotics/antiplatelets; Z79.82 Long term (current) use of aspirin; Z79.899 Other long term (current) drug therapy; Z90.710 Acquired absence of both cervix and uterus; Z95.5 Presence of coronary angioplasty implant and graft; Z88.5 Allergy status to narcotic agent; Z91.018 Allergy to other foods; Z87.19 Personal history of other diseases of the digestive system; I73.00 Raynaud's syndrome without gangrene; Z86.14 Personal history of Methicillin resistant Staphylococcus aureus infection; K58.9 Irritable bowel syndrome, unspecified
CPT/HCPCS: 36415; 71046; 80053; 83605; 83735; 83880; 84145; 84484; 85025; 85379; 85610; 85730; 87040; 87635; 93005; 94640; 96374; 99284

== ENCOUNTER → 2023-03-14 | Outpatient (CLI) | payer BC ==
--- NOTE | 2023-03-14 21:05 | MR ---
EXAMINATION TYPE: MR thoracic spine wo con DATE OF EXAM: 03/14/2023 4:46 PM COMPARISON: No priors. INDICATION: Patient age:Female; 57 years old; Reason for study: M54.50. Low back pain, Scoliosis TECHNIQUE: Multi planar, multi sequence imaging was performed utilizing: T1-weighted, short-tau inver khai recovery and T2-weighted of the thoracic spine. The patient was not given Gadolinium. IV Contrast: none FINDINGS: Alignment: There is mild scoliosis changes to the spine scoliosis midthoracic spine. Vertebral bodies have preserved heights. Spinal cord: Spinal cord is within normal limits for signal. Discs: Multilevel disc desiccation is present. No evidence of significant spinal canal or neural fora ines stenosis. T5-T6 disc extrusion with inferior migration up to 7 mm and superior migration up to 4 mm. There is mild narrowing of the ventral subarachnoid space. No evidence for significant spinal c anal or neural foraminal stenosis. Osseous structures: No abnormal bony edema on inversion recovery sequences. Multilevel osteophyte for mation and facet joint arthropathy. Scattered disc space narrowing. IMPRESSION: T5-T6 disc herniation/extrusion with superior and inferior migration of disc material. No evidence fo r significant spinal canal or neural foraminal stenosis at this level or any other level.
== END | disposition home or self-care (01) ==
LOC: RADMRIMAIN 15:44
PROVIDERS: ATTEND Orthopaedic Surgery
DX: M51.24 Other intervertebral disc displacement, thoracic region (principal); M41.84 Other forms of scoliosis, thoracic region
CPT/HCPCS: 72146

== ENCOUNTER → 2023-03-17 | Outpatient (CLI) | payer BC ==
--- NOTE | 2023-03-19 12:45 | MR ---
EXAMINATION TYPE: MR lumbar spine wo con DATE OF EXAM: 03/17/2023 4:35 PM COMPARISON: CT thorax 03/17/2023 CLINICAL INDICATION: Female, 57 years old with history of M54.50; Low back pain-degenerative scoliosi s TECHNIQUE: Multi planar, multi sequence imaging was performed utilizing: T1-weighted, T2-weighted, a nd turbo inversion recovery imaging of the lumbar spine. IV Contrast: None. FINDINGS: Alignment: The lumbar vertebral bodies have preserved heights and alignment. Cord: The conus medullaris and the distal spinal cord appear unremarkable with regards to their signa l intensity and morphology. Bones/Discs: Multilevel disc degeneration changes with Modic endplate changes worse in the lower spin e. Scattered Schmorl's nodes and disc space narrowing. Facet joint arthropathy present throughout the spine. Bony inversion recovery signal is seen most pronounced at the adjoining L3-L4 endplates likel y reactive. T12-L1: No evidence of significant spinal canal stenosis or neural foraminal stenosis. L1-L2: No evidence of significant spinal canal stenosis or neural foraminal stenosis. L2-L3: Disc bulge and facet joint arthropathy result in mild spinal canal and mild bilateral neural f oraminal stenosis. L3-L4: Disc bulge and facet joint arthropathy result in mild spinal canal and moderate to severe righ t and moderate left neural foraminal stenosis. There is abutment of the right exiting nerve from the facet joints. L4-L5: Disc bulge and facet joint arthropathy result in mild spinal canal and mild to moderate bilate ral neural foraminal stenosis. L5-S1: The disc is rounded posterior morphology without significant spinal canal stenosis. Facet join t arthropathy with moderate to severe left and moderate right. Neural foraminal stenosis. No significant spinal canal or neural foraminal stenosis in the remainder of the visualized levels. Other findings: None. IMPRESSION: 1. No evidence for significant spinal canal stenosis. There is L5-S1 moderate to severe left and mod erate severe right L3-L4 neural foraminal stenosis. 2. Moderate to severe degeneration changes throughout the spine.
== END | disposition home or self-care (01) ==
LOC: RADMRIMAIN 15:35
PROVIDERS: ATTEND Orthopaedic Surgery
DX: M47.816 Spondylosis without myelopathy or radiculopathy, lumbar region (principal); M99.73 Connective tissue and disc stenosis of intervertebral foramina of lumbar region
CPT/HCPCS: 72148

== ENCOUNTER → 2023-03-17 | Outpatient (CLI) | payer BC ==
--- NOTE | 2023-03-20 12:20 | CT ---
EXAMINATION TYPE: CT thor lumbar spine wo con DATE OF EXAM: 03/17/2023 COMPARISON: CT thoracic spine 04/13/[address] lumbar spine 02/16/2019 HISTORY: LOW BACK PAIN, SCOLIOSIS CT DLP: [address] of the thoracic and lumbar spine was performed. Bone and soft tissue window settings a re submitted as well as coronal and sagittal reconstructions. CT thoracic spine: Scoliotic curvature convex to the right. There is no evidence of fracture or malalignment. No paraspi nal mass or bony destructive process. Mild degenerative disc space narrowing throughout. Posterior sp ondylosis noted at T4-5 and T5-6 with mild effacement of the ventral thecal sac. No obvious disc glenn iation or central stenosis. CT lumbar spine: L1-L2: Normal disc space height. No disc herniation protrusion or central stenosis. No facet joint arthropathy. No evidence for foraminal encroachment. L2-L3: Normal disc space height. No disc herniation protrusion or central stenosis. No facet joint arthropathy. No evidence for foraminal encroachment. L3-L4: There is vacuum disc noted with severe degenerative disc space. Endplate sclerosis identified. Moderate posterior disc bulge. Hypertrophy ligamentum flavum and facet joint arthropathy resulting i n moderate central stenosis and bilateral neural foraminal encroachment. L4-L5: There is vacuum disc noted with severe degenerative disc space. Endplate sclerosis identified. Moderate posterior disc bulge. Hypertrophy ligamentum flavum and facet joint arthropathy resulting i n moderate central stenosis and bilateral neural foraminal encroachment. L5-S1: Space narrowing. Right paracentral disc herniation with right lateral recess stenosis and righ t foraminal encroachment. Facet joint arthropathy. No paraspinal masses are identified. Lumbar segments are free if fracture. Curvature lumbar spine co nvex to the left IMPRESSION: 1. Degenerative changes as discussed above. 2. Scoliotic curvature is noted.
== END | disposition home or self-care (01) ==
LOC: RADCTMAIN 15:41
PROVIDERS: ATTEND Orthopaedic Surgery
DX: M47.816 Spondylosis without myelopathy or radiculopathy, lumbar region (principal); M51.36 Other intervertebral disc degeneration, lumbar region; M99.73 Connective tissue and disc stenosis of intervertebral foramina of lumbar region; M41.80 Other forms of scoliosis, site unspecified
CPT/HCPCS: 72128; 72131

== ENCOUNTER 2023-07-30 08:24 | Day surgery (SDC) | payer BC ==
[2023-07-28 15:31] VITALS: BMI 35.4
[~2023-07-30 08:24] MED LIST changes: -DEXAMETHASONE SOD PHOSPHATE 10 MG/ML 1 ML VIAL IV ONE; -HYDROmorphone 0.5 MG/0.5 ML SYRINGE IVP PRN; +LACTATED RINGERS 1,000 ML IV SCH; +LIDOCAINE 1% (10MG/ML) FOR IV START INTRADERMA PRN; -MIDAZOLAM 2 MG/2 ML VIAL IV PRN
[2023-07-30 09:07] VITALS: TEMP 97.2
[2023-07-30 09:07] LABS: Glucose,Whole Blood 128 mg/dL (70-110)
[2023-07-30] MEDS ORDERED: PROPOFOL 10 MG/ML 20 ML VIAL IV ONE (10:09)
[2023-07-30] MEDS ORDERED: LIDOCAINE 1% INJ 10MG/ML (20 ML MDV) ONE (10:09)
[2023-07-30] MEDS ORDERED: LACTATED RINGERS 1,000 ML IV ONE (10:12)
--- NOTE | 2023-07-30 10:22 | P.PCN ---
Date of Procedure: 07/30/23 Procedure(s) Performed: BRIEF HISTORY: Patient is a 57-year-old, pleasant, male scheduled for an upper endoscopy as a part of evaluation of intermittent episodes of nausea vomiting for the last 5 years duration.. PROCEDURE PERFORMED: Esophagogastroduodenoscopy with biopsy. PREOPERATIVE DIAGNOSIS: Intermittent nausea vomiting of 5 years duration. IV sedation per anesthesia. PROCEDURE: After informed consent was obtained, the patient was brought into the endoscopy unit. IV sedation was administered by Anesthesia under continuous monitoring. Initially the Olympus GIF-140 video endoscope was inserted into the mouth. Esophagus intubated without any difficulty. It was gradually advanced into the stomach and duodenum and carefully examined. The bulb and the second part of the duodenum appeared normal. Biopsies were done from the duodenum to rule out celiac disease. The scope at this time was withdrawn to the stomach, adequately insufflated with air, and upon careful examination, mucosa of the antrum had mild gastritis and biopsies were done from this area. There was large amount of retained food noted in the body the stomach suggestive of gastroparesis with no gastric outlet obstruction. The visualized colon mucosa of thebody, cardia and the fundus appeared normal. The scope was then withdrawn into the esophagus. The GE junction was located at 39 cm from the incisors. The esophagus appeared normal. There were no erosions or ulcerations seen and the patient tolerated the procedure well. IMPRESSION: 1. Retained food in the stomach suggestive of gastroparesis 2. Mild antral gastritis. RECOMMENDATIONS: The findings of this examination were discussed with the patient as well as her family. She was advised to follow with the biopsy results. Recommend small frequent meals. Continue with omeprazole and Zofran as needed.
[2023-07-30 10:36] LABS: Glucose,Whole Blood 117 mg/dL (70-110)
[2023-07-30 11:06] VITALS: BP 107/70; PULSE 78; RESP 16
== END 2023-07-30 11:15 | disposition home or self-care (01) ==
LOC: ORWHC2ENDO 08:24
PROVIDERS: ATTEND Internal Medicine Gastroenterology
DX: K29.50 Unspecified chronic gastritis without bleeding (principal); I25.10 Atherosclerotic heart disease of native coronary artery without angina pectoris; I10 Essential (primary) hypertension; E78.5 Hyperlipidemia, unspecified; F12.90 Cannabis use, unspecified, uncomplicated; F17.200 Nicotine dependence, unspecified, uncomplicated; E11.9 Type 2 diabetes mellitus without complications; F41.9 Anxiety disorder, unspecified; K58.9 Irritable bowel syndrome, unspecified; Z79.899 Other long term (current) drug therapy; Z79.82 Long term (current) use of aspirin
CPT/HCPCS: 88305; 43239; J2001; J2704

== ENCOUNTER 2024-11-04 15:39 | Emergency (ER) | payer BC ==
[2024-11-04 15:42] VITALS: TEMP 97.9
--- NOTE | 2024-11-04 16:13 | ED ---
SOB HPI - General Chief Complaint: Shortness of Breath Stated Complaint: SOB Time Seen by Provider: 11/04/24 15:47 Source: patient Mode of arrival: ambulatory Limitations: no limitations - History of Present Illness Initial Comments: This patient is a 59-year-old woman who arrives here from her physician's clinic to have further evaluation and treatment related to shortness of breath. The patient states that she has developed shortness of breath over the past few days. She notes that prior to that, going back maybe 1 week she has had some upper respiratory symptoms including low-grade fever, congestion, cough. She developed some shortness of breath over the past few days. She went to the clinic today she was seen and they did give her a nebulized treatment but she was not feeling significantly better so they forwarded her here. The patient states that she does not have diagnosed lung disease however she smoked for many years quitting approximately 5 or 6 months ago. Patient denies productive cough. No chest pain. The patient has not noted change in urination or bowel movements. No leg pain or swelling. MD Complaint: shortness of breath, cough -: days(s) Severity: mild Severity scale (1-10): 0 Consistency: constant Improves With: nothing Worsens With: nothing Associated Symptoms: fever (Low-grade), cough Treatments Prior to Arrival: bronchodilator - Related Data Home Oxygen Therapy: No Home Medications Medication Instructions Recorded Confirmed DULoxetine HCL [Cymbalta] 60 mg PO HS 11/03/18 11/04/24 oxyCODONE HCL [oxyCODONE HCL (IR)] 20 mg PO Q4H 11/03/18 11/04/24 rOPINIRole HCL [Requip] 4 mg PO HS 11/03/18 11/04/24 Aspirin EC [Ecotrin Low Dose] 81 mg PO HS 07/04/22 11/04/24 Baclofen 10 mg PO TID PRN 07/04/22 11/04/24 Cetirizine HCl [Zyrtec] 10 mg PO HS 07/04/22 11/04/24 Docusate [Colace] 100 mg PO HS 11/04/24 11/04/24 Famotidine [Pepcid] 20 - 40 mg PO HS 11/04/24 11/04/24 Metoprolol Succinate [Toprol XL] 50 mg PO HS 11/04/24 11/04/24 Ondansetron [Zofran] 8 mg PO HS 11/04/24 11/04/24 Pantoprazole [Protonix] 80 mg PO HS 11/04/24 11/04/24 Tirzepatide [Mounjaro] 12.5 mg SQ WE@2100 11/04/24 11/04/24 Previous Rx's Medication Instructions Recorded Albuterol Inhaler [Ventolin Hfa 2 puff INHALATION Q4HR PRN #8 gm 11/04/24 Inhaler] predniSONE 60 mg PO DAILY #30 tab 11/04/24 Allergies Allergy/AdvReac Type Severity Reaction Status Date / Time cashew nut Allergy Swelling Verified 11/04/24 17:11 naproxen Allergy HEARTBURN Verified 11/04/24 17:11 Review of Systems ROS Statement: Those systems with pertinent positive or pertinent negative responses have been documented in the HPI. ROS Other: All systems not noted in ROS Statement are negative. Constitutional: Denies: fever, chills ENT: Reports: congestion Respiratory: Reports: as per HPI, cough, dyspnea. Denies: hemoptysis Cardiovascular: Denies: chest pain, palpitations, orthopnea, edema, syncope Gastrointestinal: Denies: abdominal pain, nausea, vomiting, diarrhea Genitourinary: Denies: dysuria, hematuria Musculoskeletal: Denies: back pain Skin: Denies: rash Neurological: Denies: headache, weakness, numbness Past Medical History Past Medical History: Coronary Artery Disease (CAD), Chest Pain / Angina, Diabetes Mellitus, Fibromyalgia, GERD/Reflux, Hyperlipidemia, Hypertension, Myocardial Infarction ([place]), Osteoarthritis (OA) Additional Past Medical History / Comment(s): Chronic abdominal pain/nausea, diverticulitis with partial colectomy, reynauld's syndrome, IBS. Last Myocardial Infarction Date:: October 2018 History of Any Multi-Drug Resistant Organisms: MRSA Date of last positivie culture/infection: 2010 MDRO Source:: abdominal incision Past Surgical History: Appendectomy, Back Surgery, Bowel Resection, Cholecystectomy, Heart Catheterization With Stent, Hernia Repair, Hysterectomy, Tonsillectomy Additional Past Surgical History / Comment(s): Back surgery twice for scoliosis, bowel resection for diverticulitis, hiatal hernia repair, total hysterectomy, R knee arthroscopy, bilateral carpal tunnel releases, R demoid ovarian cyst with surgery, anal fistula repair, rectal prolapse surgery, colonoscopy, EGD. Past Anesthesia/Blood Transfusion Reactions: No Reported Reaction Additional Past Anesthesia/Blood Transfusion Reaction / Comment(s): no blood transfusion Date of Last Stent Placement:: October 2018 Past Psychological History: Anxiety, Depression Smoking Status: Current every day smoker - Past Family History Father Family Medical History: Coronary Artery Disease (CAD), Diabetes Mellitus, Thyroid Disorder Additional Family Medical History / Comment(s): Cancer of Colon, triple bypass at 49 yr old Mother Family Medical History: No Reported History Additional Family Medical History / Comment(s): Mother is healthy. General Exam Limitations: no limitations General appearance: alert, in no apparent distress Head exam: Present: atraumatic, normocephalic Eye exam: Present: normal appearance. Absent: scleral icterus, conjunctival injection Neck exam: Present: normal inspection Respiratory exam: Present: respiratory distress. Absent: wheezes, rales, rhonchi, stridor, accessory muscle use, decreased breath sounds, prolonged expiratory Cardiovascular Exam: Present: regular rate, normal rhythm, normal heart sounds. Absent: systolic murmur, diastolic murmur, rubs, gallop GI/Abdominal exam: Present: soft. Absent: distended, tenderness, guarding, rebound, rigid Extremities exam: Present: normal inspection, normal capillary refill. Absent: pedal edema, calf tenderness Back exam: Present: normal inspection. Absent: CVA tenderness (R), CVA tenderness (L) Neurological exam: Present: alert Skin exam: Present: warm, dry, intact, normal color. Absent: rash Course Vital Signs 11/04/24 11/04/24 11/04/24 15:40 15:54 17:55 Temperature 97.9 F Pulse Rate 88 80 Respiratory 24 22 18 Rate Blood Pressure 186/97 164/87 O2 Sat by Pulse 100 98 Oximetry 11/04/24 18:46 Temperature Pulse Rate 77 Respiratory 18 Rate Blood Pressure 162/96 O2 Sat by Pulse 98 Oximetry Medical Decision Making - Medical Decision Making The patient had chest x-ray that I interpreted as negative for acute infiltrate, pneumothorax, congestive heart failure. Was pt. sent in by a medical professional or institution (, PA, STEEPING PRESS OPERATOR, urgent care, hospital, or detention...) When possible be specific @ -[No] Did you speak to anyone other than the patient for history (EMS, parent, family, police, friend...)? What history was obtained from this source @ -[No] Did you review nursing and triage notes (agree or disagree)? Why? @ -[I reviewed and agree with nursing and triage notes] Were old charts reviewed (outside hosp., previous admission, EMS record, old EKG, old radiological studies, urgent care reports/EKG's, detention records)? Report findings @ -[No old charts were reviewed] Differential Diagnosis (chest pain, altered mental status, abdominal pain women, abdominal pain men, vaginal bleeding, weakness, fever, dyspnea, syncope, headache, dizziness, GI bleed, back pain, seizure, CVA, palpatations, mental health, musculoskeletal)? @ -[Differential Dyspnea: Coronary syndrome, arrhythmia, tamponade, asthma, COPD, pulmonary embolism, pneumonia, pneumothorax, pulmonary effusion, anaphylaxis, diabetic ketoacidosis, flailed chest, pulmonary contusion, diaphragmatic rupture, anemia, neuromuscular, this is not meant to be an all-inclusive list. EKG interpreted by me (3pts min.). @ -[I interpreted as above] X-rays interpreted by me (1pt min.). @ -[I interpreted as above CT interpreted by me (1pt min.). @ -[None done] U/S interpreted by me (1pt. min.). @ -[None done] What testing was considered but not performed or refused? (CT, X-rays, U/S, labs)? Why? @ -[None] What meds were considered but not given or refused? Why? @ -[None] Did you discuss the management of the patient with other professionals (pr ofessionals i.e. , PA, STEEPING PRESS OPERATOR, lab, RT, psych nurse, rn social services, poolroom/poolhall manager, teacher, chief scientific officer, insurance case manager)? Give summary @ -[No] Was smoking cessation discussed for >3mins.? @ -[No] Was critical care preformed (if so, how long)? @ -[No] Were there social determinants of health that impacted care today? How? (Homelessness, low income, unemployed, alcoholism, drug addiction, transportation, low edu. Level, literacy, decrease access to med. care, intermediate, rehab)? @ -[No] Was there de-escalation of care discussed even if they declined (Discuss DNR or withdrawal of care, Hospice)? DNR status @ -[No] What co-morbidities impacted this encounter? (DM, HTN, Smoking, COPD, CAD, Cancer, CVA, ARF, Chemo, Hep., AIDS, mental health diagnosis, sleep apnea, morbid obesity)? @ -[None] Was patient admitted / discharged? Hospital course, mention meds given and route, prescriptions, significant lab abnormalities, going to OR and other pertinent info. @Patient is 59-year-old woman presenting with complaints of cough and dyspnea. History and physical exam consistent with acute bronchitis. No evidence of infiltrate on the chest x-ray. The patient is reevaluated after treatment and is feeling better and would like to go home. Discussed appropriate further care and follow-up as well as return parameters. Undiagnosed new problem with uncertain prognosis? @ -[No] Drug Therapy requiring intensive monitoring for toxicity (Heparin, Nitro, Insulin, Cardizem)? @ -[No] Were any procedures done? @ -[No] Diagnosis/symptom? @ -[Acute bronchitis Acute, or Chronic, or Acute on Chronic? @ -[Acute Uncomplicated (without systemic symptoms) or Complicated (systemic symptoms)? @ -[Uncomplicated Side effects of treatment? @ -[No] Exacerbation, Progression, or Severe Exacerbation? @ -[No] Poses a threat to life or bodily function? How? (Chest pain, [place], [place], pneumonia, PE, COPD, DKA, ARF, appy, cholecystitis, CVA, Diverticulitis, Homicidal, Suicidal, threat to staff... and all critical care pts) @ -[No] All treatments are based on ideal body weight as in ED triage - Lab Data Result diagrams: 11/04/24 16:11 11/04/24 16:11 Lab Results 11/04/24 11/04/24 11/04/24 Range/Units 16:11 16:11 16:11 WBC 11.5 H (3.8-10.6) k/uL RBC 5.16 (3.80-5.40) m/uL Hgb 14.8 (11.4-16.0) gm/dL Hct 47.3 H (34.0-46.0) % MCV 91.6 (80.0-100.0) fL MCH 28.7 (25.0-35.0) pg MCHC 31.3 (31.0-37.0) g/dL RDW 13.6 (11.5-15.5) % Plt Count 346 (150-450) k/uL MPV 8.2 Neutrophils % 76 % Lymphocytes % 17 % Monocytes % 5 % Eosinophils % 0 % Basophils % 1 % Neutrophils # 8.7 H (1.3-7.7) k/uL Lymphocytes # 2.0 (1.0-4.8) k/uL Monocytes # 0.6 (0-1.0) k/uL Eosinophils # 0.0 (0-0.7) k/uL Basophils # 0.1 (0-0.2) k/uL PT 12.6 H (10.0-12.5) sec INR 1.2 H (<1.2) APTT 24.5 (22.0-30.0) sec Sodium 140 (137-145) mmol/L Potassium 3.5 (3.5-5.1) mmol/L Chloride 103 (98-107) mmol/L Carbon Dioxide 28 (22-30) mmol/L Anion Gap 9 mmol/L BUN 12 (7-17) mg/dL Creatinine 0.75 (0.52-1.04) mg/dL Est GFR (CKD-EPI)AfAm >90 (>60 ml/min/1.73 sqM) Est GFR (CKD-EPI)NonAf 88 (>60 ml/min/1.73 sqM) Glucose 101 H (74-99) mg/dL Plasma Lactic Acid Jamal (0.7-2.0) mmol/L Calcium 10.4 H (8.4-10.2) mg/dL Total Bilirubin 0.4 (0.2-1.3) mg/dL AST 21 (14-36) U/L ALT 11 (4-34) U/L Alkaline Phosphatase 115 (38-126) U/L Troponin I (0.000-0.034) ng/mL NT-Pro-B Natriuret Pep 771 pg/mL Total Protein 7.4 (6.3-8.2) g/dL Albumin 4.2 (3.5-5.0) g/dL Influenza Type A (PCR) (Not Detectd) Influenza Type B (PCR) (Not Detectd) RSV (PCR) (Not Detectd) SARS-CoV-2 (PCR) (Not Detectd) 11/04/24 11/04/24 11/04/24 Range/Units 16:11 16:11 16:11 WBC (3.8-10.6) k/uL RBC (3.80-5.40) m/uL Hgb (11.4-16.0) gm/dL Hct (34.0-46.0) % MCV (80.0-100.0) fL MCH (25.0-35.0) pg MCHC (31.0-37.0) g/dL RDW (11.5-15.5) % Plt Count (150-450) k/uL MPV Neutrophils % % Lymphocytes % % Monocytes % % Eosinophils % % Basophils % % Neutrophils # (1.3-7.7) k/uL Lymphocytes # (1.0-4.8) k/uL Monocytes # (0-1.0) k/uL Eosinophils # (0-0.7) k/uL Basophils # (0-0.2) k/uL PT (10.0-12.5) sec INR (<1.2) APTT (22.0-30.0) sec Sodium (137-145) mmol/L Potassium (3.5-5.1) mmol/L Chloride (98-107) mmol/L Carbon Dioxide (22-30) mmol/L Anion Gap mmol/L BUN (7-17) mg/dL Creatinine (0.52-1.04) mg/dL Est GFR (CKD-EPI)AfAm (>60 ml/min/1.73 sqM) Est GFR (CKD-EPI)NonAf (>60 ml/min/1.73 sqM) Glucose (74-99) mg/dL Plasma Lactic Acid Jamal 2.0 (0.7-2.0) mmol/L Calcium (8.4-10.2) mg/dL Total Bilirubin (0.2-1.3) mg/dL AST (14-36) U/L ALT (4-34) U/L Alkaline Phosphatase (38-126) U/L Troponin I <0.012 (0.000-0.034) ng/mL NT-Pro-B Natriuret Pep pg/mL Total Protein (6.3-8.2) g/dL Albumin (3.5-5.0) g/dL Influenza Type A (PCR) Not Detected (Not Detectd) Influenza Type B (PCR) Not Detected (Not Detectd) RSV (PCR) Not Detected (Not Detectd) SARS-CoV-2 (PCR) Not Detected (Not Detectd) - EKG Data -: EKG Interpreted by Me EKG shows normal: sinus rhythm, axis (Normal), intervals (Normal), QRS complexes (Normal), ST-T waves (Normal) Rate: normal (Rate 84 bpm) Interpretation: normal EKG Disposition Clinical Impression: Bronchitis Disposition: HOME SELF-CARE Condition: Good Instructions (If sedation given, give patient instructions): Acute Bronchitis (ED) Prescriptions: predniSONE 60 mg PO DAILY #30 tab Albuterol Inhaler [Ventolin Hfa Inhaler] 2 puff INHALATION Q4HR PRN #8 gm PRN Reason: Wheezing Is patient prescribed a controlled substance at d/c from ED?: No Referrals: Christo Hammer MD [Primary Care Provider] - 1-2 days
--- NOTE | 2024-11-04 16:58 | XR ---
EXAMINATION TYPE: XR chest 2V DATE OF EXAM: 11/04/2024 4:54 PM COMPARISON: Chest radiographs from 07/04/2022 TECHNIQUE: XR chest 2V Frontal and lateral views of the chest. CLINICAL INDICATION:Female, 59 years old with history of difficulty breathing; FINDINGS: Lungs/Pleura: There is no evidence of pleural effusion, focal consolidation, or pneumothorax. Pulmonary vascularity: Unremarkable. Heart/mediastinum: Cardiomediastinal silhouette is unremarkable. Musculoskeletal: Multiple level degenerative disc disease changes seen throughout the spine. Dextro s coliotic curvature of the thoracic spine. Other: Cholecystectomy clips in the right upper quadrant. IMPRESSION: No acute cardiopulmonary disease/process. [facility], , 11/04/2024 4:56 PM
[2024-11-04 17:04] LABS: Basophils # (A) 0.1 k/uL (0-0.2); Basophils % (A) 1 %; Eosinophils % (A) 0 %; HCT 47.3 % (34.0-46.0); HGB 14.8 gm/dL (11.4-16.0); Lymphocytes % (A) 17 %; MCH 28.7 pg (25.0-35.0); MCHC 31.3 g/dL (31.0-37.0); MCV 91.6 fL (80.0-100.0); Mean Platelet Volume 8.2; Monocytes # (A) 0.6 k/uL (0-1.0); Monocytes % (A) 5 %; Neutrophils # (A) 8.7 k/uL (1.3-7.7); Neutrophils % (A) 76 %; Platelet Count 346 k/uL (150-450); RBC 5.16 m/uL (3.80-5.40); RDW 13.6 % (11.5-15.5); WBC 11.5 k/uL (3.8-10.6)
[2024-11-04 17:10] LABS: INR 1.2 (<1.2); Partial Thromboplastin Time 24.5 sec (22.0-30.0); Prothrombin Time 12.6 sec (10.0-12.5)
[2024-11-04 17:17] LABS: ALT 11 U/L (4-34); AST 21 U/L (14-36); African American GFR (CKD) >90 (>60 ml/min/1.73 sqM); Albumin 4.2 g/dL (3.5-5.0); Alkaline Phosphatase 115 U/L (38-126); Anion Gap 9 mmol/L; Blood Urea Nitrogen 12 mg/dL (7-17); Calcium 10.4 mg/dL (8.4-10.2); Carbon Dioxide 28 mmol/L (22-30); Chloride 103 mmol/L (98-107); Glucose 101 mg/dL (74-99); Non-African American GFR(CKD) 88 (>60 ml/min/1.73 sqM); Potassium 3.5 mmol/L (3.5-5.1); Sodium 140 mmol/L (137-145); Total Bilirubin 0.4 mg/dL (0.2-1.3); Total Protein 7.4 g/dL (6.3-8.2)
[2024-11-04 17:26] LABS: NT-Pro-B-Type Natriuretic Pept 771 pg/mL
[2024-11-04 17:37] LABS: Influenza A Not Detected (Not Detectd); Influenza B Not Detected (Not Detectd); RSV Not Detected (Not Detectd)
[2024-11-04] MEDS: predniSONE 20 MG TAB PO STA (17:47)
[2024-11-04 17:57] VITALS: RESP 18
[2024-11-04] MEDS: ACETAMINOPHEN TAB 325 MG TAB PO STA (18:05)
[2024-11-04] MEDS: IBUPROFEN 600 MG TAB PO STA (18:06)
[2024-11-04] MEDS: ALBUTEROL NEBULIZED 2.5 MG/3 ML INHALATION STA (18:20)
[2024-11-04 18:48] VITALS: BP 162/96; PULSE 77
[2024-11-04] MEDS: LORazepam 1 MG TAB PO STA (18:54)
== END 2024-11-04 19:26 | disposition home or self-care (01) ==
LOC: EC 15:39
DX: J20.9 Acute bronchitis, unspecified (principal); F17.200 Nicotine dependence, unspecified, uncomplicated; Z91.018 Allergy to other foods; Z88.6 Allergy status to analgesic agent
CPT/HCPCS: 36415; 93005; 83880; 80053; 83605; 84484; 85025; 85610; 85730; 87636; 71046; 99285; J7512